=== PATIENT | female | born 2000 | race Caucasian/White ===

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

== ENCOUNTER → 2020-04-21 14:45 | Outpatient (CLI) | payer BC, SELFPAY ==
[2020-04-21 16:09] LABS: HCG,Quantitative 139 mIU/ml (0-5.42)
== END ==
PROVIDERS: Visit Provider Nurse Practitioner Obstetrics & Gynecology
DX: Z34.90 Encounter for supervision of normal pregnancy, unspecified, unspecified trimester (principal)
CPT/HCPCS: 36415; 84702

== ENCOUNTER → 2020-04-25 11:44 | Outpatient (CLI) | payer BC, SELFPAY ==
[2020-04-25 14:45] LABS: HCG,Quantitative 788 mIU/ml (0-5.42)
== END ==
PROVIDERS: Visit Provider Nurse Practitioner Obstetrics & Gynecology
DX: Z34.90 Encounter for supervision of normal pregnancy, unspecified, unspecified trimester (principal)
CPT/HCPCS: 36415; 84702

== ENCOUNTER → 2020-05-16 12:50 | Outpatient (CLI) | payer BC, SELFPAY ==
[2020-05-19 23:37] LABS: Neisseria gonorrhoeae, NAA Negative (Negative)
== END ==
PROVIDERS: Visit Provider Nurse Practitioner Obstetrics & Gynecology
DX: Z34.90 Encounter for supervision of normal pregnancy, unspecified, unspecified trimester (principal)
CPT/HCPCS: 87491; 87591

== ENCOUNTER → 2020-05-21 10:58 | Outpatient (CLI) | payer BC, SELFPAY ==
--- NOTE | 2020-05-21 11:01 | US_ITS ---
PROCEDURE: US OB <= 14 WEEKS FETUS CLINICAL INDICATION: for dates COMPARISON: US US OB /MATERNAL DETAIL from 06/06/2019 FINDINGS: An intrauterine gestational sac is present with a pole with a crown-rump length of 1.8cm correlating to gestational age of 8weeks 3days. heart tones are present with an FHR of 170bpm. Yolk sac is noted. IMPRESSION: Live IUP at 8 weeks 3 days. Estimated due date by Ultrasound is 12/28/2020 Dictated by: Arjun Ewing MD 05/21/2020 15:45 Arjun Ewing MD in [place] 05/21/2020 15:45
== END ==
PROVIDERS: PCP Nurse Practitioner Family; Visit Provider Nurse Practitioner Obstetrics & Gynecology
DX: Z34.90 Encounter for supervision of normal pregnancy, unspecified, unspecified trimester (principal)
CPT/HCPCS: 76801

== ENCOUNTER → 2020-08-14 12:50 | Outpatient (CLI) | payer BC, SELFPAY ==
--- NOTE | 2020-08-14 12:50 | US_ITS ---
PROCEDURE: US OB /MATERNAL DETAIL CLINICAL INDICATION: 20 weeks gestation of Anatomy scan COMPARISON: US US OB <= 14 WEEKS FETUS from 05/21/2020 FINDINGS: Single viable intrauterine gestation. Breech position. Placenta: Posterior lateralplacenta grade 1. There is average amount fluid. The cervix appears satisfactory. Closed and measuring 4.8 centimeters in length. Complete survey performed and was unremarkable on the submitted images as in PACS. No discrete anomalies identified on survey imaging by technologist. Active fetus. Three-vessel cord with satisfactory umbilical cord insertion. 4- chamber heart noted. Survey of brain & ventricles Unremarkable. Face and neck survey unremarkable. Diaphragm and chest views unremarkable. Abdomen: 5 days stomach noted and satisfactory. Spine: Survey of the spine satisfactory with no anomalies identified nor imaged. Both arms and legs noted. Amniotic Fluid: Adequate. Maternal adnexa: No significant findings. Measurements: Average ultrasound age 20weeks 2days. Gestational Age 20weeks 2days Estimated due date by ultrasound age 0712/30/2020. Estimated weight 359g BPD = 20weeks OFD = 20weeks 5days HC = 19weeks 5days AC = 20weeks 5days FL = 20weeks 4days Growth Percentile= 28Percent% Heart Rate = 138bpm Cerebellum = 20weeks 2days Humerus = 20weeks 5days HC/AC is 1.1 CI is 0.76 FL/BPD is 0.73 FL/AC is 0.22 IMPRESSION: Healthy fetus in breech position with approximate ultrasound age consistent with gestational age by LMP Dictated by: Nusrat León MD 08/14/2020 17:50 Nusrat León MD in [place] 08/14/2020 17:50
== END ==
PROVIDERS: PCP Nurse Practitioner Family; Visit Provider Nurse Practitioner Obstetrics & Gynecology
DX: Z34.90 Encounter for supervision of normal pregnancy, unspecified, unspecified trimester (principal); Z3A.20 20 weeks gestation of pregnancy
CPT/HCPCS: 76811

== ENCOUNTER → 2020-10-01 08:38 | Outpatient (CLI) | payer BC, SELFPAY ==
[2020-10-01 09:06] LABS: Basophils % 0.4 % (0.1-2.0); Eosinophils # 0.2 K/mm3 (0.0-0.4); Hematocrit 39.2 % (37.0-47.0); Hemoglobin 12.9 g/dL (12.2-16.2); Lymphocytes # 2.8 K/mm3 (0.7-4.5); Lymphocytes % 25.6 % (10-50); Mean Corpuscular HGB Conc 32.8 g/dL (31.8-35.4); Mean Corpuscular Hemoglobin 30.6 pg (27.0-31.2); Mean Corpuscular Volume 93.1 fl (81-99); Mean Platelet Volume 9.4 fl (7.4-10.4); Monocytes # 0.6 K/mm3 (0.1-1.0); Monocytes % 5.7 % (1.7-9.3); Neutrophils # 7.2 K/mm3 (1.8-7.8); Neutrophils % 66.3 % (37.0-80.0); Platelet Count 237 K/mm3 (142-424); Red Blood Count 4.21 M/mm3 (4.20-5.40); Red Cell Distribution Width 13.7 % (11.5-17.5); White Blood Count 10.8 K/mm3 (4.5-13.0)
[2020-10-01 09:16] LABS: Glucose,Fasting 82 mg/dl (74-100)
[2020-10-01 10:59] LABS: Glucose 1 Hour 106 mg/dL (74-100)
[2020-10-02 14:03] LABS: HIV Screen 4th Generation wRfx Non Reactive (Non Reactive); Rubella Antibodies, IgG 2.02 index (Immune >0.99)
[2020-10-02 14:04] LABS: Hepatitis B Surface Antigen Negative (Negative); Hepatitis C Antibody <0.1 s/co ratio (0.0-0.9); Rapid Plasma Reagin Ab Titer Non Reactive (NonRea<1:1)
[2020-10-03 23:26] LABS: AFP Value 187.8 ng/mL (.); DIA MoM See interpretation. (.); DIA Value 213.46 pg/mL (.); DSR (Second Trimester) 1 IN See interpretation. (.); Gest. Age on Collection Date 27.7 WEEKS (.); Maternal Age At EDD 20.8 yr (.); OSBR Risk 1 IN See interpretation. (.); Results Report (.); T18 (By Age) See interpretation. (.); hCG MoM See interpretation. (.); hCG Value 7996 mIU/mL (.); uE3 MoM See interpretation. (.)
[2020-10-04 09:14] LABS: Gestat. Age Based On EDD (.)
== END ==
PROVIDERS: Visit Provider Nurse Practitioner Obstetrics & Gynecology
DX: Z34.90 Encounter for supervision of normal pregnancy, unspecified, unspecified trimester (principal)
CPT/HCPCS: 82106; 82951; 85025; 86592; 86703; 86762; 86850; 87340; 87380; G0432

== ENCOUNTER → 2020-11-25 13:05 | Outpatient (CLI) | payer BC, OTHER, SELFPAY ==
--- NOTE | 2020-11-25 13:12 | US_ITS ---
PROCEDURE: US OB FOLLOW UP CLINICAL INDICATION: sga COMPARISON: US US OB /MATERNAL DETAIL from 08/14/2020 FINDINGS: There is a single live fetus present which is in cephalic presentation. heart body motion noted. Cervix appears closed measuring 3 cm. The placenta is posterior and high in implantation and is grade 2. KIMBERLYN is normal at 13 cm. Biophysical profile is 8. Measurements: Average ultrasound age 34weeks 3days. Gestational Age 34weeks 3days Estimated due date by ultrasound age 0701/03/2021. Estimated weight 2,461g BPD = 33weeks 4days OFD = 35weeks 1day HC = 34weeks AC = 34weeks 3days FL = 35weeks 5days Growth Percentile= 28% Heart Rate = 142bpm Cerebellum = Humerus = HC/AC is 1.01 CI is 0.76 FL/BPD is 0.84 FL/AC is 0.23 IMPRESSION: Live IUP which is in cephalic presentation. Average ultrasound age is 34 weeks 3 days. Estimated weight is 2461 g which is 28th percentile KIMBERLYN normal at 13 cm Biophysical profile 8 Dictated by: Arjun Ewing MD 11/25/2020 18:01 Arjun Ewing MD in [place] 11/25/2020 18:01
== END ==
PROVIDERS: PCP Nurse Practitioner Family; Visit Provider Nurse Practitioner Obstetrics & Gynecology
DX: O36.5990 Maternal care for other known or suspected poor fetal growth, unspecified trimester, not applicable or unspecified (principal)
CPT/HCPCS: 76816; 76819

== ENCOUNTER → 2020-11-27 15:34 | Outpatient (CLI) | payer BC, SELFPAY | PROVIDERS: Visit Provider Nurse Practitioner Obstetrics & Gynecology | DX: Z34.90 Encounter for supervision of normal pregnancy, unspecified, unspecified trimester (principal) | CPT/HCPCS: 86403 ==

== ENCOUNTER → 2020-12-20 11:39 | Outpatient (CLI) | payer BC, SELFPAY ==
[2020-12-20 12:04] LABS: Basophils % 0.3 % (0.1-2.0); Eosinophils # 0.2 K/mm3 (0.0-0.4); Eosinophils % 1.9 % (0.1-12.0); Hematocrit 39.5 % (37.0-47.0); Hemoglobin 13.6 g/dL (12.2-16.2); Lymphocytes # 1.8 K/mm3 (0.7-4.5); Lymphocytes % 17.5 % (10-50); Mean Corpuscular HGB Conc 34.5 g/dL (31.8-35.4); Mean Corpuscular Hemoglobin 31.3 pg (27.0-31.2); Mean Corpuscular Volume 90.5 fl (81-99); Monocytes # 0.4 K/mm3 (0.1-1.0); Monocytes % 3.9 % (1.7-9.3); Neutrophils # 8.1 K/mm3 (1.8-7.8); Neutrophils % 76.4 % (37.0-80.0); Platelet Count 196 K/mm3 (142-424); Red Blood Count 4.37 M/mm3 (4.20-5.40); Red Cell Distribution Width 13.6 % (11.5-17.5); White Blood Count 10.5 K/mm3 (4.5-13.0)
[2020-12-20 12:22] LABS: Anion Gap 10.7 mEq/L (5-15); Blood Urea Nitrogen 7 mg/dl (7-17); Calcium 8.9 mg/dl (8.4-10.2); Carbon Dioxide 23 mmol/L (22.0-30.0); Chloride 106 mmol/L (98-107); Estimated Glomerular Filt Rate 157 ml/min (>60); GFR (African American) 190 ML/MIN (>60); Glucose 89 mg/dl (74-100); Potassium 4.7 mmoL/L (3.5-5.1); Sodium 135 mmol/L (136-145)
== END ==
PROVIDERS: Visit Provider Nurse Practitioner Obstetrics & Gynecology
DX: Z01.818 Encounter for other preprocedural examination (principal); Z11.52 Encounter for screening for COVID-19; Z3A.38 38 weeks gestation of pregnancy
CPT/HCPCS: 36415; 80048; 85025; U0003

== ENCOUNTER 2020-12-22 05:02 | Inpatient (IN) | payer BC, OTHER, SELFPAY ==
--- NOTE | 2020-12-15 14:04 | SUR.PREOP ---
Instructed patient to come in on TueDecember 20 for COVID swab.
[2020-12-22] VITALS (8 sets, daily range): BP systolic 117–173; BP diastolic 61–89; PULSE 81–104; RESP 14–20; TEMP 36.3–36.8; O2SAT 97–99; BMI 31.2; BMI 31.3
[2020-12-22 08:01] LABS: Microscopic, Urine URINE MICROSCOPIC (MICROSCOPIC)
[2020-12-22 08:01] LABS: Cord Blood PH 7.42 (7.35-7.45)
[2020-12-22 08:05] LABS: Appearance,Urine SL CLOUDY (Clear); Bilirubin,Urine Negative (Negative); Blood, Urine Negative (Negative); Color,Urine YELLOW (Yellow); Glucose,Urine (UA) Negative (Negative); Ketones,Urine Negative (Negative); Leukocyte Esterase,Urine 2+ (Negative); Nitrate,Urine Negative (Negative); PH,Urine 6.5 (5.0-8.5); Protein,Urine Negative (Negative); Urobilinogen,Urine 0.2 EU/dl (0.2)
[2020-12-22 08:16] LABS: Amphetamine/Metha Screen,Urine Negative ng/ml (<1000); Bacteria,Urine 1+ /lpf; Benzodiazepines Screen,Urine Negative ng/ml (<200); Squamous Epithelial Cell,Urine Occasional #/hpf (0-5)
[2020-12-22 08:17] LABS: Barbiturates Screen,Urine Negative ng/ml (<200); Cannabinoid Screen,Urine Negative ng/ml (<50)
[2020-12-22 08:18] LABS: Cocaine Screen,Urine Negative ng/ml (<300)
[2020-12-22 08:19] LABS: Methadone Screen,Urine Negative ng/ml (<300); Opiate Screen,Urine Negative ng/ml (<300)
[2020-12-22 08:20] LABS: Phencyclidine Screen,Urine Negative ng/ml (<25)
--- NOTE | 2020-12-22 08:40 | HMH.OPNOTE ---
Date of procedure: 12/22/20 Pre-op Diagnosis:: Term , previous section Post-op Diagnosis:: Term , previous section, uterine atony Procedure performed:: Repeat lower segment transverse section, B. Wills suture Surgeon:: Wilbert Armas MD [place] Rope Maker(s):: Alissa Roper SERVICE CONTROL OPERATOR:: Luca Teixeira Anesthesia: spinal Estimated blood loss (mL): 800 Clinical Note:: She is a 20-year-old 2 para 1 at 39 1 weeks gestational age. She had only 14 months between her last baby. She had previous section and as result of that was offered repeat lower segment transverse section at term. Operative findings:: She delivered a liveborn female child at 7:54 AM on the morning of December 22, 2020. The baby had Apgars of 8 at 1 minute and 9 at 5 minutes. pH was 7.42. She had a boggy uterus after we had finished closing up the uterine incision. As result of that I elected to perform a B. Wills suture. Operative note:: She was taken to the operating room where spinal anesthesia was found be adequate. She was prepped and draped in normal sterile fashion in the supine position with a leftward tilt. A Almaguer catheter was in the bladder. A Pfannenstiel skin incision was made with knife then carried through to the underlying layer of fascia with cautery. The fascia was opened in the midline with cautery and extended laterally using Rogers scissors. Noble clamps were applied to the superior aspect of the fascial incision which was tented up and the underlying rectus muscles dissected off using cautery. The Beto clamps were then applied to the inferior aspect of the fascial incision which in a similar fashion was tented up and the underlying rectus muscles dissected off using cautery. The rectus muscles were then in the midline, the peritoneum identified, and entered sharply with Metzenbaum scissors. This incision was then extended superiorly and inferiorly with cautery. We had good visualization of the bladder inferiorly. The bladder peritoneum was then opened in the midline and extended laterally using Metzenbaum scissors. A bladder flap was created digitally. Transverse incision was made through the uterine muscle to the amnion. This incision was then extended laterally using fingers traction. The amnion was entered sharply with knife. There was clear amniotic fluid. The infant's head was then delivered atraumatically. A loose nuchal cord was then reduced. This was followed by the anterior shoulder and the rest of the infant's body atraumatically. The oropharynx and nasopharynx were bulb suctioned. The was then handed off to Dr. Montero who assigned Apgars of 8 at 1 minute and 9 at 5 minutes. We then obtained cord blood as well as cord pH. The pH was 7.42. Using gentle traction on the cord and countertraction on the fundus I was able to easily deliver the placenta intact. It had a normal three-vessel cord. The uterus was then cleared of clots and debris . The uterus was then exteriorized from the abdominal cavity. The uterine incision was then closed using running 0 Vicryl suture in a locked fashion. A second layer of the same suture was used to imbricate the first layer. The bladder peritoneum was then closed using running 2-0 Vicryl suture in a locked fashion. The gutters and cul-de-sac were then cleared of clots and debris . Once again hemostasis was assured. The uterus was found to be quite boggy so I placed a B. Wills suture using #1 Vicryl. I took a bite anteriorly and then went over the back of the uterus. I took 2 bites posteriorly and then came back over the top of the uterus anteriorly. I took another bite here. The suture was then cinched down. The uterus was then returned to the abdominal cavity. I then placed a large piece of Interceed along the uterine incision. The peritoneum was grasped with Beverly clamps and closed using running 2-0 Vicryl suture. The rectus muscles w
--- NOTE | 2020-12-22 08:48 | HMH.OBAPHP ---
OB - H&P: HPI Antepartum - History of Present Illness Chief complaint: Term , previous section History of present illness: She is a 20-year-old 2 para 1 at 39 and 1 weeks gestational age. She has had a previous section 14 months ago. As result of that she was offered repeat lower segment transverse section at term. - History of Present Criteria for establishing EDC:: LMP confirmed by 1st trimester US care: good care Ultrasounds: normal 1st trimester US, normal mid trimester US Obstetrical complications: none Medical complications: none - Labs Blood type: O (+) positive Rubella: immune RPR/VDRL: nonreactive GBS status: negative HBsAG: negative [facility] History I have reviewed the patient's past medical history: Yes Medical History: Reports:: Anxiety, Asthma, Diabetes Mellitus Type 2 Denies:: Seizures *Have you ever received a pneumonia vaccine?: No *Have you received a flu vaccine this season?: No Laterality Cases: Bilateral: Tonsillectomy Other Surgeries: Yes: No Previous Surgery, , Hernia Repair, Other Amputation: No Fractures: No - *Social History Smoking Status: Never smoker Alcohol Intake: never Alcohol Intake Frequency:: other Substance Use Type: denies use *Occupational Status:: employed Housing: house Household Members: family *Travel in the last 8 weeks: None - Psychiatric History Pschychiatric History:: Reports:: Anxiety Family Hx:: Cancer, Diabetes, Heart Attack, Hypertension, Hyperlipidemia, Stroke, Asthma Para: 1 Review of Systems - Review of Systems Review of systems:: pertinent systems reviewed and negative unless documented below Meds Home Medications Medication Instructions Recorded Confirmed Type vitamins no.121-iron 28 1 tab PO DAILY tab 03/13/19 12/22/20 History mg-folic acid 800 mcg tablet RX: Ferrous Gluconate [Ferrous 324 mg PO DAILY 12/22/20 12/22/20 History Gluconate 324mg Tab] Allergies Allergy/AdvReac Type Severity Reaction Status Date / Time sulfamethoxazole AdvReac Mild Hives Verified 12/19/20 11:15 [From Bactrim] trimethoprim [From Bactrim] AdvReac Mild Hives Verified 12/19/20 11:15 OB - H&P: Exam - Physical Exam Vital signs: Temp Pulse Resp BP Pulse Ox 98.1 F 81 17 120/61 99 12/22/20 06:37 12/22/20 06:37 12/22/20 06:37 12/22/20 06:37 12/22/20 06:37 - Constitutional no acute distress - Routine HEENT Exam Head: Present: normocephalic Eye: Present: EOMI, PERRL ENT: Present: mucous membranes moist - Routine Neck Exam Present: supple, full ROM - Routine Respiratory Exam Absent: accessory muscle use (good air entry bilaterally), respiratory distress, wheezes, crackles - Routine Cardiovascular Exam Present: RRR. Absent: murmur - Routine Abdominal Exam Present: soft, normoactive bowel sounds. Absent: tenderness, distended, guarding - Routine Rectal Exam Patient deferred: visual exam, digital exam - Routine Exam Patient deferred: external exam, groin exam, perineal exam - Routine Extremities Exam Present: full ROM. Absent: cyanosis, edema - Routine Skin Exam Present: intact. Absent: cyanosis - Routine Neurological Exam Present: alert, oriented X3 - Routine Psychiatric Exam Present: normal affect OB - Results - Labs Labs: Urine 12/22/20 Range/Units 05:20 Urine Color Yellow (Yellow) Urine Appearance Sl cloudy (Clear) Urine pH 6.5 (5.0-8.5) Ur Specific [place] 1.020 (1.005-1.030) Urine Protein Negative (Negative) Urine Glucose (UA) Negative (Negative) OB - A/P Antepartum (1) Previous section complicating Status: Acute (2) Delivery by section of full-term infant Status: Acute (3) Uterine atony, , without hemorrhage Status: Acute - Additional Plan Planning to breastfeed?: No Plan: other Additional Information::
--- NOTE | 2020-12-22 08:50 | SUR.PHASEI ---
0848-notified Dr. Armas of [facility] for operating room, started protocol at this time, will continue to monitor
--- NOTE | 2020-12-22 10:19 | P.PN_ITS ---
[facility] Anesthesia Checklist - Patient Identification Patient Identification: Arm Band - Structural Data Admitted From: Inpatient Planned Operative Procedure/s: Repeat Consent for Planned Operative Procedure(s) Verified: Yes Verified Documents: Surgical Consent, History and Physical - NPO Status Verified Time NPO: 00:00 - Additional verifications Anesthesia Reactions: No - Airway Assessment C-Spine Mobility Assessed: Yes TMJ Mobility Assessed: Yes Dentition: Good Dentition - Anesthesia Plan Anesthesia Risk discussed: Yes Anesthesia Plan: Verified ASA Class: II Anesthesia Type: Spinal [facility] History I have reviewed the patient's past medical history: Yes Medical History: Reports:: Anxiety, Asthma, Diabetes Mellitus Type 2 Denies:: Seizures *Have you ever received a pneumonia vaccine?: No *Have you received a flu vaccine this season?: No Anesthesia experience/problems:: None Laterality Cases: Bilateral: Tonsillectomy Other Surgeries: Yes: No Previous Surgery, , Hernia Repair, Other Amputation: No Fractures: No - *Social History Smoking Status: Never smoker Alcohol Intake: never Alcohol Intake Frequency:: other Substance Use Type: denies use *Occupational Status:: employed Housing: house Household Members: family *Travel in the last 8 weeks: None - Psychiatric History Pschychiatric History:: Reports:: Anxiety Family Hx:: Cancer, Diabetes, Heart Attack, Hypertension, Hyperlipidemia, Stroke, Asthma Para: 1
--- NOTE | 2020-12-22 10:22 | P.PN_ITS ---
[facility] Anesthesia Record Part I Intake, IV Amount: 2,400 Estimated blood loss (mL): 800 Urine output (mL): 300 Blood Pressure: 173/66 SaO2: 97 Pulse Rate: 89 Respiratory Rate: 14 Temperature: 97.4 F Patient is:: Awake, Stable
--- NOTE | 2020-12-22 10:45 | PC.NURSE ---
0910- methergine 0.2mg admin subcut to right thigh, lab notified of order for two units of RBC's on hold, vital signs stable. Will continue to monitor. 0915- Detailed report called to Rommel Estevez RN. 0918- pt transported to OB room 278 in stable condition, left in care of Rommel Estevez RN
--- NOTE | 2020-12-22 10:56 | SUR.OPER ---
0754- viable female born at this time
--- NOTE | 2020-12-22 12:43 | HMH.ANESII ---
[facility] Anesthesia Record Part II Discharge Time: 09:15 Destination: Obstetric PACU nurse assessment reviewed?: Yes Patient Condition:: Good Anesthesia Complications:: None Swallowing reflex intact?: Yes Cyanosis?: No Blood Pressure: 135/81 Pulse Rate: 83 Temperature: 97.8 F Mental Status: Alert & Oriented Pain level:: 0 Nausea and/or vomitting:: None Intake, IV Amount: 0
--- NOTE | 2020-12-22 14:01 | HMH.PHAVTE ---
[facility] Pharmacy VTE Monitoring - Patient Demographics Admission date: 12/22/20 Report Date: 12/22/20 Time: 14:01 Allergies/Adverse Reactions: Patient Allergies sulfamethoxazole [From Bactrim] Adverse Reaction (Mild, Verified 12/19/20 11:15) Hives trimethoprim [From Bactrim] Adverse Reaction (Mild, Verified 12/19/20 11:15) Hives Height: 1.65 m Weight: 85.275 kg Patient Problems: Current Active Problems Previous section complicating (Acute) Delivery by section of full-term (Acute) Uterine atony, , without hemorrhage (Acute) - Prophylaxis VTE Prophylaxis Ordered?: Yes Types of VTE Prophylaxis: IPCS Thigh High Location of Applied Device: Bilateral Lower Extremeties
[2020-12-22 14:32] LABS: Microscopic,Cath URINE MICROSCOPIC (MICROSCOPIC)
[2020-12-22 14:49] LABS: Appearance,Urine/Cath CLEAR (Clear); Bilirubin,Cath Negative (Negative); Blood, Urine/Cath Negative (Negative); Color,Urine/Cath YELLOW (Yellow); Glucose,Urine/Cath (UA) Negative (Negative); Ketones,Urine/Cath Negative (Negative); Leukocyte Esterase,Cath Negative (Negative); Nitrate,Cath Negative (Negative); PH,Urine/Cath 6.5 (5.0-8.5); Protein,Urine/Cath Negative (Negative); Urobilinogen,Cath 0.2 EU/dl (0.2)
[2020-12-22 15:13] LABS: WBC,Urine/Cath Occasional #/hpf (0-3)
[2020-12-22 15:14] LABS: Bacteria,Urine/Cath TRACE /lpf
[2020-12-22 16:26] LABS: Hematocrit 33.5 % (37.0-47.0); Hemoglobin 11.8 g/dL (12.2-16.2)
[2020-12-23 08:00] VITALS: BP 108/58; PULSE 79; RESP 18; TEMP 36.9; O2SAT 97
[2020-12-23 08:54] LABS: Hematocrit 29.3 % (37.0-47.0)
--- NOTE | 2020-12-23 10:29 | P.PN_ITS ---
Internal Medicine - PN: Subj *Date: 12/23/20 *Time: 10:29 Interval history: She is 24 hours post section. She is doing very well. She denies any pain. She had a tap block yesterday. Her lochia is normal. She is bottlefeeding. Exam Vital signs and Labs for Last 24 Hours: Temp Pulse Resp BP Pulse Ox 98.4 F 79 18 108/58 L 97 12/23/20 08:00 12/23/20 08:00 12/23/20 08:00 12/23/20 08:00 12/23/20 08:00 Laboratory Results - last 24 hr 12/22/20 07:45: Urine Color Yellow, Urine Appearance Clear, Urine pH 6.5, Ur Specific [place] 1.020, Urine Protein Negative, Urine Glucose (UA) Negative, Ur ine Ketones Negative, Urine Blood Negative, Urine Nitrate Negative, Urine Bilirubin Negative, Urine Urobilinogen 0.2, Ur Leukocyte Esterase Negative, Urine RBC None, Urine WBC Occasional, Ur Squamous Epith Cells None, Urine Bacteria Trace 12/22/20 09:50: Blood Type O Positive, Antibody Screen Negative, Crossmatch (AHG) See Detail 12/22/20 16:10: Hgb 11.8 L, Hct 33.5 L 12/23/20 08:38: Hct 29.3 L I & O for Last 24 hours: Intake & Output 12/20/20 12/21/20 12/22/20 12/23/20 11:59 11:59 11:59 11:59 Intake Total 2400 / 2400 0 / 0 Output Total 1200 / 1200 Balance 2400 / 2400 -1200 / -1200 Weight 188 lb 187 lb 15.987 oz Microbiology Reports for the Last 24 Hours: Microbiology 12/22/20 05:20 Urine,Clean Catch Urine Culture - Preliminary NO GROWTH AFTER 24 HOURS - Constitutional no acute distress - *Routine HEENT Exam Head: Present: normocephalic Eye: Present: EOMI, PERRL ENT: Present: mucous membranes moist Assessment and Plan (1) Previous section complicating Status: Acute Category: Surgical Code(s): O34.219 - Maternal care for unspecified type scar from previous delivery (2) Delivery by section of full-term Status: Acute Category: Medical Code(s): O82 - Encounter for delivery without indication (3) Uterine atony, , without hemorrhage Status: Acute Category: Medical Code(s): O75.89 - Other specified complications of labor and delivery - Assessment and plan all Dx Assessment and Plan for all problems:: She continues to do very well. She is eating and drinking and ambulating. Her pain is well controlled with a tap block. We will plan to send her home tomorrow.
[2020-12-23 11:27] LABS: Hemoglobin 10.2 g/dL (12.2-16.2)
[2020-12-23 16:05] VITALS: BP 112/62; PULSE 98; RESP 18; TEMP 36.7; O2SAT 100
--- NOTE | 2020-12-24 08:58 | HMH.OBDCSM ---
General - General Admission date:: 12/22/20 Discharge date: 12/24/20 HPI - History of Present Illness History of present illness: She is a 20-year-old 2 para 1 at 39 1 weeks gestational age. She had a previous section and as result of that was offered repeat lower segment transverse section at term. Hospital Course Hospital Course: She had a repeat lower segment transverse section on December 22, 2020. She delivered a liveborn female child at 7:54 AM. The baby weighed 7 pounds 3 ounces and had Apgars of 8 at 1 minute and 9 at 5 minutes. She has done well and has remained afebrile throughout her hospitalization. She is eating and drinking and ambulating. She is bottle feeding. Her lochia is normal. She has O+ blood, she is rubella immune and was group B streptococcus negative. Her civil cad tech is Dr. Montero. She had a tap block at the time of her and she has used minimal narcotics throughout her hospitalization. Her pain is been well controlled with a tap block. She is now just taking [id number] analgesics. She will be discharged home this morning to follow-up with me in approximate 2 weeks time. She was given the usual instructions with respect to limiting her activity, driving and sexual activity. She will be given a prescription for Percocet 5/325 number 6 tablets. She will continue with her vitamins and iron. Her condition on discharge is stable and improved. Rhogam Administration: Not Indicated Objective Vital signs: Temp Pulse Resp BP Pulse Ox 98.0 F 98 H 18 112/62 100 12/23/20 16:05 12/23/20 16:05 12/23/20 16:05 12/23/20 16:05 12/23/20 16:05 no acute distress - *Routine Abdominal Exam Present: soft, normoactive bowel sounds. Absent: tenderness Results Labs on day of discharge: Labs from last 24 hours 12/23/20 08:38 Hgb 10.2 L D Hct 29.3 L DS: Diagnosis - Discharge Diagnosis (1) Previous section complicating Status: Acute (2) Delivery by section of full-term infant Status: Acute (3) Uterine atony, , without hemorrhage Status: Acute Discharge Plan - Patient Discharge Instructions ACTIVITY: No heavy lifting DIET: continue same diet Additional Instructions: No heavy lifting, no strenuous activity and nothing in the vagina for 6 weeks. Patient Instructions: Depression, Hemorrhage, DI for Pre-eclampsia, DI for Surgical Site Infection, DI for Postoperative Pain, [facility] Post Discharge Instructions, Preventing the Spread of Coronavirus Discharge Instructions - Follow up Plan Follow up with: Wilbert Armas MD [Staff Physician] - 01/05/21 10:30 am Disposition: Home, Self-Care Condition at discharge:: Stable Home Medications: Home Medications Medication Instructions Recorded Confirmed Type vitamins no.121-iron 28 1 tab PO DAILY tab 03/13/19 12/22/20 History mg-folic acid 800 mcg tablet Ferrous Gluconate [Ferrous 324 mg PO DAILY 12/22/20 12/22/20 History Gluconate 324mg Tab] Oxycodone HCl/Acetaminophen 1 tab PO Q4-6H PRN #6 tab 12/24/20 Rx [Percocet 5/325mg tablet] Prescriptions/Medication Reconciliation: New Oxycodone HCl/Acetaminophen [Percocet 5/325mg tablet] 1 tab PO Q4-6H PRN #6 tab PRN Reason: Severe Pain Continued vitamins no.121-iron 28 mg-folic acid 800 mcg tablet 1 tab PO DAILY tab Ferrous Gluconate [Ferrous Gluconate 324mg Tab] 324 mg PO DAILY - Problem Reconciliation Problems Reviewed?: Yes
== END 2020-12-24 10:15 | disposition home or self-care (01) | DRG 788 ==
PROVIDERS: Admitting Provider Nurse Practitioner Obstetrics & Gynecology; PCP Nurse Practitioner Family; Visit Provider Nurse Practitioner Obstetrics & Gynecology
PROC: 10D00Z1 Extraction of Products of Conception, Low, Open Approach (ICD-10-PCS; CPT 59514; principal; 2020-12-22 07:30)
DX: O34.211 Maternal care for low transverse scar from previous cesarean delivery (principal); N85.8 Other specified noninflammatory disorders of uterus; Z3A.39 39 weeks gestation of pregnancy; Z37.0 Single live birth; O75.89 Other specified complications of labor and delivery
CPT/HCPCS: 59514; 36415; 59025; 80305; 81001; 82800; 85014; 85018; 86850; 87086

== ENCOUNTER → 2021-03-12 08:00 | Outpatient (CLI) | payer BC, SELFPAY | PROVIDERS: Visit Provider Internal Medicine Adolescent Medicine | DX: R30.0 Dysuria (principal) | CPT/HCPCS: 87086; 87088; 87186 ==

== ENCOUNTER → 2021-12-14 09:09 | Outpatient (CLI) | payer BC, OTHER, SELFPAY ==
--- NOTE | 2021-12-14 09:16 | US_ITS ---
FINAL REPORT CLINICAL HISTORY: UNSPECIFIED ABD PAIN FINDINGS: Sonographic images of the right upper quadrant were obtained. The pancreas is partially obscured.The liver has an unremarkable appearance. There are multiple gallstones filling the gallbladder. The gallbladder wall is borderline thickened at 3 mm. The common duct measures 7 mm of uncertain significance. Limited images of the right kidney are unremarkable. IMPRESSION: Cholelithiasis with borderline gallbladder wall thickening. Dilation of the common duct measuring 7 mm of uncertain significance, consider MRCP for further evaluation. Reviewed, Interpreted and Dictated by Issa Hale III, MD Transcribed by Gisela Montano Authenticated and [facility]
== END ==
PROVIDERS: PCP Nurse Practitioner Family; Visit Provider Nurse Practitioner Family
DX: R10.9 Unspecified abdominal pain (principal)
CPT/HCPCS: 76705

== ENCOUNTER → 2022-05-31 09:08 | Outpatient (CLI) | payer BC, OTHER, SELFPAY | PROVIDERS: PCP Nurse Practitioner Family; Visit Provider Nurse Practitioner Family | DX: R00.2 Palpitations (principal) | CPT/HCPCS: 93306 ==

== ENCOUNTER 2022-07-30 22:25 | Emergency (ER) | payer BC, OTHER, SELFPAY ==
[2022-07-30 22:26] VITALS: BP 122/70; PULSE 118; RESP 16; TEMP 36.5; O2SAT 99; BMI 21.7
--- NOTE | 2022-07-30 22:45 | HMH.EDNVD ---
Discharge Plan Disposition Patient Disposition: Home, Self-Care Prescriptions Prescriptions: New ondansetron 4 mg tablet,disintegrating 4 mg PO Q8H 3 Days Qty: 9 0RF No Action ofloxacin 0.3 % drops 1 drp otic (ear) BID Referrals Follow up/Referrals: Preethi Avilez [Primary Care Provider] - See instructions Clinical Impressions Clinical Impression: Enteritis Instructions Patient Instructions: DI for Diarrhea and Traveler's Diarrhea -- Adult, DI for Nausea -- Adult Discharge ED Provider: Avel (ED)Nishant Nausea/Vomiting/Diarrhea HPI General Chief complaint: Nausea/Vomiting/Diarrhea Stated complaint: chills,V&D Time Seen by Provider: 07/30/22 23:00 Mode of Arrival: Ambulatory Source of Information: Patient, Significant Other and Medical Record Limitations: No Limitations Description of Symptoms (Recalled from ER Triage Doc. by RN): 22 F presents with 5 hours of n/v/d, abdominal cramping, and generalized fatigue. She denies any sick exposures to her knowledge. NAD History of Present Illness HPI Narrative: pt with acute onset of n/v and watery diarrhea with crampy pain- MD complaint: nausea, vomiting and diarrhea Onset (ago): hour(s) Description of Vomiting: watery Associated Abdominal Pain: Yes Location of pain: diffuse Severity: moderate Quality: cramping Consistency: intermittent Associated symptoms: denies other symptoms Related Data Home Medications Medication Instructions Recorded Confirmed ofloxacin 0.3 % ear drops 1 drp otic (ear) BID Ear Infection 07/30/22 07/30/22 Previous Rx's Medication Instructions Recorded ondansetron 4 mg disintegrating 4 mg PO Q8H 3 days #9 tabs 07/31/22 tablet Allergies Allergy/AdvReac Type Severity Reaction Status Date / Time sulfamethoxazole AdvReac Mild Hives Verified 04/22/22 09:00 [From Bactrim] trimethoprim [From Bactrim] AdvReac Mild Hives Verified 04/22/22 09:00 [facility] Disclaimer: The information contained in this section may have been updated after the patient was seen, as this information can be updated by other users. 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 (Updated 04/22/22 @ 09:18 by ARAVIND Sutherland) Hx laparoscopic cholecystectomy Social History Smoking Status: Current some day smoker alcohol intake: never substance use type: denies use current occupational status: employed Travel in the last 8 weeks: None household members: family housing: house ROS Obtained: Yes All systems reviewed & no additional complaints except as documented Physical Exam General General appearance: alert Head Head exam: normocephalic Eye Eye exam: Present PERRL and EOMI; Absent scleral icterus ENT ENT exam: Present mucous membranes moist Neck Neck exam: Present trachea midline Respiratory Respiratory exam: Present normal lung sounds bilaterally; Absent respiratory distress Cardiovascular Cardiovascular exam: Present tachycardia Abdominal Exam Abdominal exam: Present soft and tenderness; Absent guarding, rebound or rigidity Abdominal tenderness: Present diffuse and moderate Extremities Exam Extremities exam: Present full ROM Neurological Exam Neurological exam: Present alert, oriented X3 and CN II-XII intact; Absent motor sensory deficit Psychiatric Psychiatric exam: Present normal affect Skin Skin exam: Absent rash Medical Decision Making Medical Records Medical records reviewed: Yes I reviewed the patient's medical records. Tc Inquiry Pt receiving controlled substance: No Vital Signs: 07/30/22 22:26 07/30/22 23:00 Temperature 97.7 F Temperature Source Oral Pulse Rate 88 Pulse Rate [Left] 118 H Respiratory Rate 16 Blood Pressure 123/63 Blood Pressure [Right Arm] 122/70 Blood Pressure Mean [Right Arm] 87 Blood Pressure Source [Right Arm] Automatic Cuff Blood Pressure Position [Right Arm] Sitting 02 Sat by Pulse Oximetry 99 100 Oxygen Delivery
[2022-07-30 22:57] LABS: Chloride 106 mmol/L (98-107)
[2022-07-30 22:58] LABS: Basophils # 0.1 K/mm3 (0-0.2); Basophils % 0.5 % (0.1-2.0); Eosinophils # 0.4 K/mm3 (0.0-0.4); Eosinophils % 1.3 % (0.1-12.0); Hematocrit 52.2 % (37.0-47.0); Hemoglobin 17.1 g/dL (12.2-16.2); Lymphocytes # 0.7 K/mm3 (0.7-4.5); Lymphocytes % 2.3 % (10-50); Mean Corpuscular HGB Conc 32.6 g/dL (31.8-35.4); Mean Corpuscular Hemoglobin 30.2 pg (27.0-31.2); Mean Corpuscular Volume 92.6 fl (81-99); Mean Platelet Volume 8.9 fl (7.4-10.4); Monocytes # 0.9 K/mm3 (0.1-1.0); Monocytes % 3.2 % (1.7-9.3); Neutrophils # 26.2 K/mm3 (1.8-7.8); Neutrophils % 92.6 % (37.0-80.0); Platelet Count 363 K/mm3 (142-424); Potassium 4.2 mmoL/L (3.5-5.1); Red Blood Count 5.64 M/mm3 (4.20-5.40); Red Cell Distribution Width 12.8 % (11.5-17.5); Sodium 140 mmol/L (136-145); White Blood Count 28.3 K/mm3 (4.8-10.8)
[2022-07-30 23:00] VITALS: BP 123/63; PULSE 88; O2SAT 100
[2022-07-30 23:00] LABS: Alanine Aminotransferase 20 U/L (12-78); Alkaline Phosphatase 81 U/L (38-126); Anion Gap 14.2 mEq/L (5-15); Aspartate Amino Transferase 29 U/L (14-36); Bilirubin,Total 1.3 mg/dl (0.2-1.3); Blood Urea Nitrogen 16 mg/dl (7-17); Carbon Dioxide 24 mmol/L (22.0-30.0); Creatinine Clearance Estimated 142 mL/min (50-200); Estimated Glomerular Filt Rate 125 ml/min (>60); GFR (African American) 151 ML/MIN (>60); Lipase 92 U/L (23-300)
[2022-07-30 23:01] LABS: Albumin Level 5.1 g/dl (3.5-5.0); Albumin/Globulin Ratio 1.4 (1.1-1.8); Calcium 8.9 mg/dl (8.4-10.2); Globulin 3.7 g/dL (1.3-3.2); Glucose 116 mg/dl (74-100); MANUAL DIFFERENTIAL MANUAL DIFFERENTIAL (MANUAL DIFF); Total Protein,Serum 8.8 g/dl (6.3-8.2)
[2022-07-30 23:02] LABS: Lactic Acid 1.1 mmol/L (0.7-2.1)
[2022-07-30 23:04] LABS: HCG Qualitative, Serum Negative (Negative)
[2022-07-30 23:06] LABS: C-Reactive Protein 0.6 mg/L (0-4)
--- NOTE | 2022-07-30 23:10 | CT_ITS ---
PROCEDURE INFORMATION: Exam: CT Abdomen And Pelvis With Contrast Exam date and time: 07/30/2022 11:26 PM Age: 22 years old Clinical indication: Abdominal pain; Additional info: Nausea/vomiting, abdominal pain TECHNIQUE: Imaging protocol: Computed tomography of the abdomen and pelvis with contrast. Radiation optimization: All CT scans at this facility use at least one of these dose optimization techniques: automated exposure control; mA and/or kV adjustment per patient size (includes targeted exams where dose is matched to clinical indication); or iterative reconstruction. Contrast material: ISOVUE; Contrast volume: 75 ml; Contrast route: IV; Other protocol: This patient has received 0 known CTs and 0 known cardiac nuclear medicine studies in the 12 months prior to the current study. COMPARISON: ABDPELW CT ABD PELVIS W/ CONTRAST 03/29/2017 9:44 AM FINDINGS: Liver: Normal. No mass. Gallbladder and bile ducts: Gallbladder is surgically absent. Pancreas: Normal. No ductal dilation. Spleen: Normal. No splenomegaly. Adrenal glands: Normal. No mass. Kidneys and ureters: Normal. No hydronephrosis. Stomach and bowel: There is diffuse small bowel wall thickening and enhancement with fluid throughout small bowel and colon, compatible with enteritis and associated diarrheal illness. No evidence of bowel obstruction. Appendix: No evidence of appendicitis. Intraperitoneal space: Unremarkable. No free air. No significant fluid collection. Vasculature: Unremarkable. No abdominal aortic aneurysm. Lymph nodes: Unremarkable. No enlarged lymph nodes. Urinary bladder: Unremarkable as visualized. Reproductive: There has been interval development of a 4.8 cm left adnexal cyst in the pelvis. Pelvic organs are otherwise unremarkable. Bones/joints: Unremarkable. No acute fracture. Soft tissues: Unremarkable. IMPRESSION: 1. Findings suggesting diffuse enteritis. No evidence of bowel obstruction 2. Interval development of a 4.8 cm left adnexal cyst, presumably of left ovarian origin. Further characterization with nonurgent pelvic ultrasound recommended.
[2022-07-30 23:26] LABS: Eosinophils % 2 % (0-3); Lymphocytes % 6 % (10-50); Monocytes % 3 % (2-9); Neutrophils % 89 % (42-76); Platelet Estimate Normal; RBC Morphology Normal; Total Cells Counted 100
[2022-07-30 23:29] LABS: Erythrocyte Sedimentation Rate 1 mm/hr (0-20); Procalcitonin 0.107 ng/mL (0.0-2.0)
[2022-07-30 23:37] LABS: Microscopic, Urine URINE MICROSCOPIC (MICROSCOPIC)
[2022-07-31 00:08] LABS: Appearance,Urine Clear (Clear); Color,Urine Yellow (Yellow); Specific Gravity, Urine >= 1.030 (1.005-1.030)
[2022-07-31 00:09] LABS: Bilirubin,Urine Negative (Negative); Blood, Urine Negative (Negative); Glucose,Urine (UA) Negative (Negative); Ketones,Urine 2+ (Negative); Leukocyte Esterase,Urine Negative (Negative); Nitrate,Urine Negative (Negative); Protein,Urine Negative (Negative); Squamous Epithelial Cell,Urine Occasional #/hpf (0-5); Urobilinogen,Urine 0.2 EU/dl (0.2); WBC,Urine Occasional #/hpf (0-3)
[2022-07-31 00:10] LABS: Bacteria,Urine Trace /lpf; Mucus,Urine 3+ /lpf
[2022-07-31 00:56] VITALS: BP 123/63; PULSE 88; RESP 18; TEMP 36.7; O2SAT 100
[2022-08-01 22:46] LABS: Peripheral Smear Review Scanned Result
== END 2022-07-31 01:11 | disposition home or self-care (01) ==
PROVIDERS: Emergency Provider Emergency Medicine; PCP Nurse Practitioner Family
DX: K52.9 Noninfective gastroenteritis and colitis, unspecified (principal); F17.210 Nicotine dependence, cigarettes, uncomplicated; Z87.19 Personal history of other diseases of the digestive system
CPT/HCPCS: 74177; 80053; 81001; 83605; 83690; 84145; 84703; 85007; 85025; 85651; 86140; 96361; 96374; 96375; 99285; J2405; Q9967

== ENCOUNTER 2022-10-31 16:36 | Emergency (ER) | payer BC, OTHER, SELFPAY ==
[2022-10-31 17:45] LABS: Apearance,Urine Clear (Clear); Color,Urine Straw (Yellow)
[2022-10-31 17:46] LABS: Bilirubin,Urine Negative (Negative); Blood, Urine 2+ (Negative); Glucose,Urine (UA) Negative (Negative); Ketones,Urine Negative (Negative); Protein,Urine Negative (Negative); Specific Gravity, Urine < 1.005 (1.005-1.030); UTC Leukocyte Esterase,Urine 3+ (Negative); UTC Nitrate,Urine Negative (Negative); Urobilinogen,Urine 0.2 EU/dl (0.2)
--- NOTE | 2022-10-31 18:08 | EXP.UTC ---
Discharge Plan Disposition Patient Disposition: Home, Self-Care Condition: Good Prescriptions Prescriptions: New cephalexin [cephalexin] 500 mg tablet 500 mg PO BID 7 Days Qty: 14 0RF No Action ofloxacin 0.3 % drops 1 drp otic (ear) BID ondansetron 4 mg tablet,disintegrating 4 mg PO Q8H 3 Days Qty: 9 0RF Referrals Follow up/Referrals: Preethi Avilez [Primary Care Provider] - See instructions Activity Restrictions/Add. Instructions Additional Instructions/Restrictions: Increase fluids, water and not soda or tea. Can drink cranberry juice or cranberry extract. Wipe front to back Wear cotton underwear Empty bladder after intercourse Start antibiotics immediately and make sure you take the full course although you may start to see improvement over the next 48 hours. You can eat yogurt or take probiotics to decrease diarrhea or yeast infection caused by the antibiotic Be sure to follow-up anytime for new or worsening symptoms in 48 hours for wound urine culture results be sure to let you PCP no recent urine for culture so they can request records and ensure that you have appropriate antibiotic if you are not getting better or getting worse. If symptoms worsen or do not improve return or be seen in the ER. Follow-up with primary care this week. Clinical Impressions Clinical Impression: UTI (urinary tract infection) Instructions Patient Instructions: DI for Urinary Tract Infection (UTI) Discharge ED Provider: Francesco ([facility])Marco [facility] [place] HPI General Stated complaint: Possible UTI Mode of Arrival: Ambulatory Time Seen by Provider: 10/31/22 18:08 HEENT Symptoms (Recalled from RN notes): No Resp Symptoms (Recalled from RN notes): No Skin Symptoms (Recalled from RN notes): No GI/ Symptoms (Recalled from RN notes): No MS Symptoms (Recalled from RN notes): No Card Symptoms (Recalled from RN notes): No Other (Recalled from RN notes): No History of Present Illness Provider Complaint: 22 yr old female presents for burning, freq, urgency, and pelvic pressure that started today Related Data Home Medications Medication Instructions Recorded Confirmed ofloxacin 0.3 % ear drops 1 drp otic (ear) BID Ear Infection 07/30/22 07/30/22 Previous Rx's Medication Instructions Recorded ondansetron 4 mg disintegrating 4 mg PO Q8H 3 days #9 tabs 07/31/22 tablet cephalexin 500 mg tablet 500 mg PO BID 7 days #14 tabs 10/31/22 Allergies Allergy/AdvReac Type Severity Reaction Status Date / Time sulfamethoxazole AdvReac Mild Hives Verified 10/31/22 18:14 [From Bactrim] trimethoprim [From Bactrim] AdvReac Mild Hives Verified 10/31/22 18:14 PFSH [facility] Disclaimer: The information contained in this section may have been updated after the patient was seen, as this information can be updated by other users. 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) Smoking Status: Current some day smoker alcohol intake: never substance use type: denies use current occupational status: employed Travel in the last 8 weeks: None household members: family housing: house ROS Obtained: Yes All systems reviewed & no additional complaints except as documented Constitutional Constitutional: Reports system reviewed and no additional complaints, except as documented and Reports as per HPI Eyes Eyes: Reports system reviewed and no additional complaints, except as documented and Reports as per HPI ENT Ears, Nose, Mouth, and Throat: Reports system reviewed and no additional complaints, except as documented Cardiovascular Cardiovascular: Reports system reviewed and no additional complaints, except as documented Respiratory Respiratory: Reports system reviewed and no additional complaints, except as documented Gastrointestinal Gastrointestingal: Reports system reviewed and n
[2022-10-31 18:11] VITALS: BP 115/73; PULSE 88; RESP 18; TEMP 36.8; O2SAT 99; BMI 25.7
[2022-10-31 18:36] VITALS: BP 115/73; PULSE 88; RESP 18; TEMP 36.8
== END 2022-10-31 18:38 | disposition home or self-care (01) ==
PROVIDERS: Emergency Provider Nurse Practitioner Family; PCP Nurse Practitioner Family
DX: N39.0 Urinary tract infection, site not specified (principal); F17.210 Nicotine dependence, cigarettes, uncomplicated
CPT/HCPCS: 81003; 87086; 87088; 87186; 99204; 99212; 99214; G0463

== ENCOUNTER → 2022-12-01 06:55 | Outpatient (CLI) | payer BC, OTHER, SELFPAY ==
[2022-12-01 08:40] LABS: HCG,Quantitative 12 mIU/ml (0-5.42)
[2022-12-02 08:39] LABS: Progesterone 6.5 ng/mL (.)
== END ==
PROVIDERS: PCP Nurse Practitioner Family; Visit Provider Nurse Practitioner Obstetrics & Gynecology
DX: N92.6 Irregular menstruation, unspecified (principal); Z32.00 Encounter for pregnancy test, result unknown
CPT/HCPCS: 36415; 84144; 84702

== ENCOUNTER → 2022-12-03 07:03 | Outpatient (CLI) | payer BC, OTHER, SELFPAY ==
[2022-12-03 09:20] LABS: HCG,Quantitative 5 mIU/ml (0-5.42)
== END ==
PROVIDERS: PCP Nurse Practitioner Family; Visit Provider Nurse Practitioner Obstetrics & Gynecology
DX: N92.6 Irregular menstruation, unspecified (principal); Z32.00 Encounter for pregnancy test, result unknown
CPT/HCPCS: 36415; 84702

== ENCOUNTER → 2023-04-01 10:26 | Outpatient (CLI) | payer BC, OTHER, SELFPAY ==
[2023-04-01 11:22] LABS: HCG,Quantitative 520 mIU/ml (0-5.42)
[2023-04-03 11:50] LABS: Progesterone 11.1 ng/mL (.)
== END ==
PROVIDERS: PCP Nurse Practitioner Family; Visit Provider Nurse Practitioner Obstetrics & Gynecology
DX: N92.6 Irregular menstruation, unspecified (principal)
CPT/HCPCS: 36415; 84144; 84702

== ENCOUNTER 2023-04-04 17:37 | Emergency (ER) | payer BC, OTHER, SELFPAY ==
[2023-04-04 17:39] VITALS: BP 135/87; PULSE 101; RESP 16; TEMP 36.8; O2SAT 99; BMI 25.9
[2023-04-04 17:44] LABS: Microscopic, Urine URINE MICROSCOPIC (MICROSCOPIC)
[2023-04-04 18:00] VITALS: BP 153/80; PULSE 112; O2SAT 99
[2023-04-04 18:08] LABS: Appearance,Urine CLEAR (Clear); Bilirubin,Urine Negative (Negative); Blood, Urine Negative (Negative); Color,Urine YELLOW (Yellow); Glucose,Urine (UA) Negative (Negative); Ketones,Urine Negative (Negative); Leukocyte Esterase,Urine TRACE (Negative); Nitrate,Urine Negative (Negative); PH,Urine 6.5 (5.0-8.5); Protein,Urine Negative (Negative); Specific Gravity, Urine <= 1.005 (1.005-1.030); Urobilinogen,Urine 0.2 EU/dl (0.2)
--- NOTE | 2023-04-04 18:14 | HMH.EDGENADL ---
Discharge Plan Disposition Patient Disposition: Home, Self-Care Prescriptions Prescriptions: No Action ofloxacin 0.3 % drops 1 drp otic (ear) BID ondansetron 4 mg tablet,disintegrating 4 mg PO Q8H 3 Days Qty: 9 0RF cephalexin [cephalexin] 500 mg tablet 500 mg PO BID 7 Days Qty: 14 0RF Referrals Follow up/Referrals: Preethi Avilez [Primary Care Provider] - See instructions Activity Restrictions/Add. Instructions Additional Instructions/Restrictions: Call your family doctor to establish care for this visit to the emergency department and schedule follow-up within 48 hours to ensure improvement. If you have any worsening of your condition or any other concerning signs or symptoms, return to the emergency department or your primary care doctor for further evaluation. Follow-up with OB for formal obstetrics care Clinical Impressions Clinical Impression: Urinary frequency care Qualifiers: Trimester: first trimester Qualified Code(s): Z34.91 - Encounter for supervision of normal , unspecified, first trimester Instructions Patient Instructions: DI for Urinary Tract Infection (UTI), DI for Urinary Tract Infection in Children Discharge ED Provider: Frandy Fields General Adult HPI General Chief complaint: Urogenital-Female Stated complaint: frequent painful urination, 1 mo preg Time Seen by Provider: 04/04/23 17:41 Mode of Arrival: Family Vehicle Source of Information: Patient Limitations: No Limitations Description of Symptoms (Recalled from ER Triage Doc. by RN): Pt c/o urinary urgency & frequency suspects she has a UTI. She reports to be 4-5 wk , . LMP 02/28/23. Denies any abd pain or vaginal discharge. History of Present Illness HPI narrative: 23-year-old female G3, P2 with last menstrual period 03/01 presenting with frequency. Patient states that she has been having urinary frequency for about a week. Denies dysuria, hematuria, nausea or vomiting, fevers or chills, or any other concerns. 1 to make sure she did not be UTI. Allergic to Bactrim. Patient also states she supposed to have labs drawn soon and does not have time to get them drawn outpatient. Related Data Home Medications Medication Instructions Recorded Confirmed ofloxacin 0.3 % ear drops 1 drp otic (ear) BID Ear Infection 07/30/22 07/30/22 Previous Rx's Medication Instructions Recorded ondansetron 4 mg disintegrating 4 mg PO Q8H 3 days #9 tabs 07/31/22 tablet cephalexin 500 mg tablet 500 mg PO BID 7 days #14 tabs 10/31/22 Allergies Allergy/AdvReac Type Severity Reaction Status Date / Time sulfamethoxazole AdvReac Mild Hives Verified 10/31/22 18:14 [From Bactrim] trimethoprim [From Bactrim] AdvReac Mild Hives Verified 10/31/22 18:14 PFSH PFSH Disclaimer: The information contained in this section may have been updated after the patient was seen, as this information can be updated by other users. 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) Smoking Status: Never smoker alcohol intake: never substance use type: denies use current occupational status: employed Travel in the last 8 weeks: None household members: family housing: house ROS Obtained: Yes All systems reviewed & no additional complaints except as documented Physical Exam General General appearance: alert and in no apparent distress Head Head exam: atraumatic and normocephalic Eye Eye exam: Present normal appearance, PERRL and EOMI ENT ENT exam: Present mucous membranes moist Neck Neck exam: Present normal inspection, full ROM and trachea midline Respiratory Respiratory exam: Absent respiratory distress, wheezes, stridor, accessory muscle use or prolonged expiratory phase Cardiovascular Cardiovascular exam: Present normal rhythm Abdominal Exam Abdominal
[2023-04-04 18:30] VITALS: BP 120/66; PULSE 87; O2SAT 100
[2023-04-04 18:37] LABS: Squamous Epithelial Cell,Urine Occasional #/hpf (0-5); WBC,Urine Occasional #/hpf (0-3)
[2023-04-04 20:00] LABS: Basophils # 0.1 K/mm3 (0-0.2); Basophils % 0.5 % (0.1-2.0); Chloride 105 mmol/L (98-107); Eosinophils # 0.5 K/mm3 (0.0-0.4); Eosinophils % 3.5 % (0.1-12.0); Hemoglobin 13.7 g/dL (12.2-16.2); Lymphocytes # 2.8 K/mm3 (0.7-4.5); Mean Corpuscular HGB Conc 32.6 g/dL (31.8-35.4); Mean Corpuscular Hemoglobin 29.6 pg (27.0-31.2); Mean Corpuscular Volume 90.7 fl (81-99); Mean Platelet Volume 8.7 fl (7.4-10.4); Monocytes # 0.6 K/mm3 (0.1-1.0); Monocytes % 4.4 % (1.7-9.3); Neutrophils # 9.4 K/mm3 (1.8-7.8); Neutrophils % 70.6 % (37.0-80.0); Platelet Count 316 K/mm3 (142-424); Potassium 3.9 mmoL/L (3.5-5.1); Red Blood Count 4.63 M/mm3 (4.20-5.40); Red Cell Distribution Width 12.8 % (11.5-17.5); Sodium 137 mmol/L (136-145); White Blood Count 13.3 K/mm3 (4.8-10.8)
[2023-04-04 20:02] LABS: Alanine Aminotransferase 17 U/L (12-78); Alkaline Phosphatase 60 U/L (38-126); Aspartate Amino Transferase 27 U/L (14-36); Bilirubin,Total 0.4 mg/dl (0.2-1.3); Blood Urea Nitrogen 12 mg/dl (7-17); Creatinine Clearance Estimated 195 mL/min (50-200); Estimated Glomerular Filt Rate 153 ml/min (>60); GFR (African American) 185 ML/MIN (>60)
[2023-04-04 20:03] LABS: Albumin Level 4.3 g/dl (3.5-5.0); Albumin/Globulin Ratio 1.4 (1.1-1.8); Anion Gap 13.9 mEq/L (5-15); Calcium 8.5 mg/dl (8.4-10.2); Carbon Dioxide 22 mmol/L (22.0-30.0); Globulin 3.1 g/dL (1.3-3.2); Glucose 93 mg/dl (74-100); Total Protein,Serum 7.4 g/dl (6.3-8.2)
[2023-04-04 20:21] LABS: HCG,Quantitative 2112 mIU/ml (0-5.42)
[2023-04-04 20:30] VITALS: BP 130/79; PULSE 83; RESP 16; TEMP 36.6; O2SAT 99
== END 2023-04-04 20:31 | disposition home or self-care (01) ==
PROVIDERS: Emergency Provider Emergency Medicine; PCP Nurse Practitioner Family
DX: O26.891 Other specified pregnancy related conditions, first trimester (principal); R39.15 Urgency of urination; Z3A.01 Less than 8 weeks gestation of pregnancy
CPT/HCPCS: 80053; 81001; 84702; 85025; 99283

== ENCOUNTER → 2023-05-02 07:04 | Outpatient (CLI) | payer BC, OTHER, SELFPAY | PROVIDERS: PCP Nurse Practitioner Obstetrics & Gynecology; Visit Provider Nurse Practitioner Obstetrics & Gynecology | DX: Z34.91 Encounter for supervision of normal pregnancy, unspecified, first trimester (principal) ==

== ENCOUNTER → 2023-05-02 15:44 | Outpatient (CLI) | payer BC, OTHER, SELFPAY ==
[2023-05-02 16:13] LABS: Basophils # 0.1 K/mm3 (0-0.2); Basophils % 0.4 % (0.1-2.0); Eosinophils # 0.3 K/mm3 (0.0-0.4); Eosinophils % 2.3 % (0.1-12.0); Hematocrit 39.2 % (37.0-47.0); Hemoglobin 13.8 g/dL (12.2-16.2); Lymphocytes # 1.8 K/mm3 (0.7-4.5); Lymphocytes % 12.9 % (10-50); Mean Corpuscular HGB Conc 35.1 g/dL (31.8-35.4); Mean Corpuscular Volume 91.2 fl (81-99); Mean Platelet Volume 8.5 fl (7.4-10.4); Monocytes # 0.5 K/mm3 (0.1-1.0); Monocytes % 3.6 % (1.7-9.3); Neutrophils # 11.1 K/mm3 (1.8-7.8); Neutrophils % 80.8 % (37.0-80.0); Platelet Count 317 K/mm3 (142-424); Red Cell Distribution Width 12.5 % (11.5-17.5); White Blood Count 13.7 K/mm3 (4.8-10.8)
[2023-05-04 14:19] LABS: HIV Screen 4th Generation wRfx Non Reactive (Non Reactive); Rapid Plasma Reagin Ab Titer Non Reactive titer (NonRea<1:1); Rubella Antibodies, IgG 2.55 index (Immune >0.99)
[2023-05-05 10:44] LABS: Hepatitis B Surface Antigen Negative; Hepatitis C Antibody Non Reactive
== END ==
PROVIDERS: PCP Nurse Practitioner Family; Visit Provider Nurse Practitioner Obstetrics & Gynecology
DX: Z34.91 Encounter for supervision of normal pregnancy, unspecified, first trimester (principal); Z3A.09 9 weeks gestation of pregnancy
CPT/HCPCS: 36415; 85025; 86593; 86703; 86762; 86850; 87086; 87340; 87380; G0432

== ENCOUNTER 2023-07-19 14:00 | Outpatient (CLI) | payer BC, OTHER, SELFPAY ==
--- NOTE | 2023-07-19 14:01 | US_ITS ---
PROCEDURE: US OB /MATERNAL DETAIL CLINICAL INDICATION: 20 week anatomy scan COMPARISON: No exams were available for comparison FINDINGS: Transabdominal sonographic images of the pelvis were obtained. From her established due date she is 20 weeks 1 day. Single viable intrauterine gestation. Breech position. Placenta: Posteriorplacenta grade 1. There is an average amount of fluid. The cervix appears satisfactory. Closed and measuring 3.6 cm in length. Complete survey performed and was unremarkable on the submitted images as in PACS. No discrete anomalies identified on survey imaging by technologist. Active fetus. Three-vessel cord with satisfactory umbilical cord insertion. 4- chamber heart noted. Situs, aortic arch, LVOT, RVOT, appear normal. Survey of brain & ventricles Unremarkable. Cerebellum, thalamus, choroid plexus, cisterna magna appear normal. Face and neck survey unremarkable. Profile, nasion, lips and nose appeared normal. Diaphragm and chest views unremarkable. Abdomen: Both kidneys noted and unremarkable. Stomach and bladder noted and satisfactory. Spine: Survey of the spine satisfactory with no anomalies identified nor imaged. Cervical, thoracic, lower spine appear normal. Both arms and legs noted. Amniotic Fluid: Adequate. Measurements: Average ultrasound age 20weeks 0 days. Estimated due date by ultrasound age 0612/06/2023. Estimated weight 323g BPD = 19weeks 5days HC = 20weeks 0 days AC = 20weeks 1day FL = 19weeks 6days Growth Percentile= 35 Heart Rate = 144bpm Cerebellum = 20weeks 2days Humerus = 20weeks HC/AC is 1.17 FL/BPD is 0.7 FL/AC is 0.21 IMPRESSION: 1. Viable fetus in the breech presentation with a posterior placenta grade 1. 2. The fluid is within normal limits. 3. Anatomical scan appears normal. 4. biometry is consistent with the dates. Dictated by: Wilbert Armas MD 07/19/2023 16:47 Wilbert Armas MD in [place] 07/19/2023 16:47
== END 2023-07-19 23:59 ==
LOC: RAD 14:01
PROVIDERS: PCP Nurse Practitioner Obstetrics & Gynecology; Visit Provider Nurse Practitioner Obstetrics & Gynecology
DX: Z34.92 Encounter for supervision of normal pregnancy, unspecified, second trimester (principal); Z3A.20 20 weeks gestation of pregnancy
CPT/HCPCS: 76811

== ENCOUNTER 2023-08-08 15:46 | Outpatient (CLI) | payer BC, OTHER, SELFPAY ==
[2023-08-08 15:57] VITALS: BMI 29.1
[2023-08-08] MEDS: LACTATED RINGERS 1000ML 1,000 ML 999 ML IV (16:17)
[2023-08-08 16:31] VITALS: BP 132/78; PULSE 118; RESP 18; TEMP 36.4; O2SAT 98; BMI 29.1
[2023-08-08] MEDS: ONDANSETRON 4MG/2ML VIAL 4 MG IV (17:09)
[2023-08-08 17:15] LABS: Microscopic, Urine URINE MICROSCOPIC (MICROSCOPIC)
[2023-08-08 17:21] LABS: Basophils % 0.2 % (0.1-2.0); Eosinophils # 0.2 K/mm3 (0.0-0.4); Eosinophils % 1.1 % (0.1-12.0); Hematocrit 44.3 % (37.0-47.0); Hemoglobin 15.3 g/dL (12.2-16.2); Lymphocytes % 4.7 % (10-50); Mean Corpuscular HGB Conc 34.5 g/dL (31.8-35.4); Mean Corpuscular Hemoglobin 31.8 pg (27.0-31.2); Mean Corpuscular Volume 92.4 fl (81-99); Monocytes # 0.8 K/mm3 (0.1-1.0); Monocytes % 3.9 % (1.7-9.3); Neutrophils # 18.9 K/mm3 (1.8-7.8); Neutrophils % 90.1 % (37.0-80.0); Platelet Count 251 K/mm3 (142-424); Red Cell Distribution Width 13.4 % (11.5-17.5)
[2023-08-08 17:22] LABS: MANUAL DIFFERENTIAL MANUAL DIFFERENTIAL (MANUAL DIFF)
[2023-08-08 17:23] LABS: Alanine Aminotransferase 21 U/L (12-78); Albumin Level 4.2 g/dl (3.5-5.0); Albumin/Globulin Ratio 1.2 (1.1-1.8); Alkaline Phosphatase 90 U/L (38-126); Anion Gap 10.8 mEq/L (5-15); Aspartate Amino Transferase 28 U/L (14-36); Bilirubin,Total 0.6 mg/dl (0.2-1.3); Blood Urea Nitrogen 10 mg/dl (7-17); Calcium 9.2 mg/dl (8.4-10.2); Carbon Dioxide 23 mmol/L (22.0-30.0); Chloride 107 mmol/L (98-107); Creatinine Clearance Estimated 219 mL/min (50-200); Estimated Glomerular Filt Rate 153 ml/min (>60); GFR (African American) 185 ML/MIN (>60); Globulin 3.4 g/dL (1.3-3.2); Glucose 87 mg/dl (74-100); Potassium 3.8 mmoL/L (3.5-5.1); Sodium 137 mmol/L (136-145); Total Protein,Serum 7.6 g/dl (6.3-8.2)
[2023-08-08 17:34] LABS: Appearance,Urine CLEAR (Clear); Blood, Urine Negative (Negative); Color,Urine YELLOW (Yellow); Glucose,Urine (UA) Negative (Negative); Ketones,Urine 1+ (Negative); Leukocyte Esterase,Urine TRACE (Negative); Nitrate,Urine Negative (Negative); Protein,Urine TRACE (Negative); Specific Gravity, Urine >= 1.030 (1.005-1.030); Urobilinogen,Urine 0.2 EU/dl (0.2)
[2023-08-08 17:36] LABS: Lymphocytes % 6 % (10-50); Monocytes % 4 % (2-9); Neutrophils % 90 % (42-76); Total Cells Counted 100
[2023-08-08 17:38] LABS: Bilirubin,Urine 1+ (Negative)
[2023-08-08 17:38] LABS: Hypochromasia 1+; Macrocytosis 1+; Platelet Estimate Normal
[2023-08-08 17:49] LABS: Squamous Epithelial Cell,Urine Occasional #/hpf (0-5); WBC,Urine Occasional #/hpf (0-3)
[2023-08-08 17:51] LABS: Cannabinoid Screen,Urine Negative ng/ml (<50)
[2023-08-08 17:52] LABS: Cocaine Screen,Urine Negative ng/ml (<300)
[2023-08-08 17:53] LABS: Opiate Screen,Urine Negative ng/ml (<300)
[2023-08-08 17:54] LABS: Phencyclidine Screen,Urine Negative ng/ml (<25)
[2023-08-08 18:01] LABS: Barbiturates Screen,Urine Negative ng/ml (<200)
[2023-08-08 18:03] LABS: Methadone Screen,Urine Negative ng/ml (<300)
[2023-08-08 19:09] LABS: Benzodiazepines Screen,Urine Negative ng/ml (<200)
[2023-08-08 19:48] LABS: Amphetamine/Metha Screen,Urine Negative ng/ml (<1000)
== END 2023-08-08 18:08 | disposition home or self-care (01) ==
LOC: OBOUT 15:47 → OB 15:48
PROVIDERS: PCP Nurse Practitioner Family; Visit Provider Nurse Practitioner Obstetrics & Gynecology
DX: O26.892 Other specified pregnancy related conditions, second trimester (principal); O21.9 Vomiting of pregnancy, unspecified; R11.0 Nausea; R19.7 Diarrhea, unspecified; Z3A.23 23 weeks gestation of pregnancy
CPT/HCPCS: 80053; 80307; 81001; 85007; 85025; 96365; G0463; J2405

== ENCOUNTER 2023-09-13 06:55 | Outpatient (CLI) | payer BC, OTHER, SELFPAY ==
[2023-09-13 07:25] LABS: Basophils # 0.1 K/mm3 (0-0.2); Basophils % 0.5 % (0.1-2.0); Eosinophils # 0.4 K/mm3 (0.0-0.4); Eosinophils % 3.1 % (0.1-12.0); Hematocrit 40.4 % (37.0-47.0); Hemoglobin 12.9 g/dL (12.2-16.2); Lymphocytes # 2.4 K/mm3 (0.7-4.5); Lymphocytes % 17.2 % (10-50); Mean Corpuscular HGB Conc 31.9 g/dL (31.8-35.4); Mean Corpuscular Hemoglobin 31.3 pg (27.0-31.2); Mean Corpuscular Volume 98.2 fl (81-99); Mean Platelet Volume 9.7 fl (7.4-10.4); Monocytes # 0.7 K/mm3 (0.1-1.0); Monocytes % 4.7 % (1.7-9.3); Neutrophils # 10.2 K/mm3 (1.8-7.8); Neutrophils % 74.5 % (37.0-80.0); Platelet Count 215 K/mm3 (142-424); Red Blood Count 4.12 M/mm3 (4.20-5.40); Red Cell Distribution Width 13.8 % (11.5-17.5); White Blood Count 13.7 K/mm3 (4.8-10.8)
[2023-09-13 07:54] LABS: Glucose,Fasting 86 mg/dl (74-100)
[2023-09-13 09:27] LABS: Glucose 1 Hour 122 mg/dL (74-100)
== END 2023-09-13 23:59 ==
LOC: LAB 06:56
PROVIDERS: PCP Nurse Practitioner Family; Visit Provider Nurse Practitioner Obstetrics & Gynecology
DX: O26.893 Other specified pregnancy related conditions, third trimester (principal); Z3A.28 28 weeks gestation of pregnancy
CPT/HCPCS: 36415; 82951; 85025

== ENCOUNTER 2023-11-05 13:27 | Emergency (ER) | payer BC, OTHER, SELFPAY ==
[2023-11-05 14:05] VITALS: BP 127/64; PULSE 103; RESP 20; TEMP 36.8; O2SAT 95; BMI 31.9
--- NOTE | 2023-11-05 14:35 | ED_ITS ---
Discharge Plan Disposition Patient Disposition: Home, Self-Care Condition: Good Prescriptions Prescriptions: New amoxicillin 500 mg capsule 500 mg PO BID 10 Days Qty: 20 0RF No Action Classic 28 mg iron- 800 mcg tablet 1 tab PO DAILY ferrous sulfate 325 mg (65 mg iron) tablet 325 mg PO DAILY Qty: 30 11RF famotidine [Pepcid] 20 mg tablet 20 mg PO DAILY Qty: 30 2RF Referrals Follow up/Referrals: Preethi Avilez [Primary Care Provider] - See instructions Activity Restrictions/Add. Instructions Additional Instructions/Restrictions: *Monitor Temp, Over the counter Motrin or Tylenol as directed/as needed Tylenol every 4 hours and Motrin every 6 hours (as long as your family doctor has told you that you can take it) for fever or pain. and straight to ER if unable to lower temp less than 101.0 after medication given *Warm salt water gargles may help to soothe the throat *Throat Lozenges? *Warm fluids like tea with honey may help to soothe the throat? *Sleep elevated *Humidifier/Vaporizer Take medication as prescribed Your throat swab was sent for culture. Those results are typically sent to your primary care. Be sure to follow up in 2-3 days with your family doctor/primary care physician if no improvement so they can review those result and treat if necessary. If you don?t have a primary care doctor, I recommend you get one but in the mean time, you will have to return to a walk in clinic Follow up IMMEDIATELY for new or worsening symptoms or no Noticeable improvement over the next 48-72 hours. 911 for difficulty breathing or swallowing Clinical Impressions Clinical Impression: Sinusitis Instructions Patient Instructions: DI for Sinusitis, Sinusitis Discharge ED Provider: Alejandra Zimmerman [facility] [place] HPI General Stated complaint: sore throat, cough Mode of Arrival: Ambulatory Source of Information: Patient Limitations: No Limitations Time Seen by Provider: 11/05/23 14:35 Description of Symptoms (Recalled from Triage Doc. by RN): PATIENT C/O SORE THROAT, COUGH AND RUNNY NOSE X 5 DAYS HEENT Symptoms (Recalled from RN notes): Yes Resp Symptoms (Recalled from RN notes): Yes Skin Symptoms (Recalled from RN notes): No MS Symptoms (Recalled from RN notes): No Functional Status (Recalled from RN notes): WNL History of Present Illness Provider Complaint: Patient states that she hasn't felt well for about a week and she has been having sore throat, sinus congestion and pressure, and cough States at times her nose will run but feels the pressure behind her eyes states that she is 34wks OB and has taken everything she can OTC but nothing has helped Related Data Home Medications Medication Instructions Recorded Confirmed vits no.126-ferrous fum 1 tab PO DAILY 05/02/23 10/24/23 28 mg iron-folic acid 800 mcg tablet (Classic ) Previous Rx's Medication Instructions Recorded ferrous sulfate 325 mg (65 mg 325 mg PO DAILY #30 tabs 07/26/23 iron) tablet famotidine 20 mg tablet (Pepcid) 20 mg PO DAILY #30 tabs 09/13/23 amoxicillin 500 mg capsule 500 mg PO BID 10 days #20 caps 11/05/23 Allergies Allergy/AdvReac Type Severity Reaction Status Date / Time sulfamethoxazole AdvReac Mild Hives Verified 10/24/23 09:31 [From Bactrim] trimethoprim [From Bactrim] AdvReac Mild Hives Verified 10/24/23 09:31 Spinal AdvReac Severe Hypertensio Uncoded 10/24/23 09:31 n Worker's Comp Is this a Worker's Comp case?: No [facility] Disclaimer: The information contained in this section may have been updated after the patient was seen, as this information can be updated by other users. Medical History Nausea and vomiting of , antepartum Anxiety 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 History of delivery Hx of wisdom tooth extraction Hx of tonsillectomy Hx laparoscopic cholecystectomy Family History Other Asthma Diabetes Heart attack Hypertension Social History Smoking Status: Never smoker alcohol intake: never substance use type: denies use current occupational status: employed Travel in the last 8 weeks: None household members: family housing: house ROS Obtained: Yes All systems reviewed & no additional complaints except as documented and Yes Systems reviewed as appropriate & no additional complaints except as documented Constitutional Constitutional: Reports system reviewed and no additional complaints, except as documented, Reports as per HPI and Reports headache(s) ENT Ears, Nose, Mouth, and Throat: Reports system reviewed and no additional complaints, except as documented, Reports as per HPI, Reports headache(s), Reports sinus pain, Reports sinus pressure and Reports sore throat Cardiovascular Cardiovascular: Reports system reviewed and no additional complaints, except as documented and Reports as per HPI Respiratory Respiratory: Reports system reviewed and no additional complaints, except as documented and Reports as per HPI Gastrointestinal Gastrointestingal: Reports system reviewed and no additional complaints, except as documented and as per HPI Neurologic Neurologic: Reports headache(s) Physical Exam General General appearance: alert and in no apparent distress ENT ENT exam: Present mucous membranes moist Expanded ENT Exam Nose exam: Present sinus tenderness Throat exam: Present other (Pharyngeal erythema noted with PND) Respiratory Respiratory exam: Present normal lung sounds bilaterally; Absent respiratory distress or wheezes Cardiovascular Cardiovascular exam: Present regular rate, normal rhythm and normal heart sounds Neurological Exam Neurological exam: Present alert, oriented X3 and normal gait Medical Decision Making Tc Inquiry Pt receiving controlled substance: No Tc was queried for this patient: No Vital Signs: 11/05/23 14:05 Temperature 98.2 F Temperature Source Oral Pulse Rate [Left Brachial] 103 H Respiratory Rate 20 Blood Pressure [Left Arm] 127/64 Blood Pressure Mean [Left Arm] 85 Blood Pressure Source [Left Arm] Automatic Cuff Blood Pressure Position [Left Arm] Sitting 02 Sat by Pulse Oximetry 95 Oxygen Delivery Method Room Air Medical Decision Narrative: Medications discussed with pharmacy due to
[2023-11-05 14:50] VITALS: BP 127/64; PULSE 103; RESP 20; TEMP 36.8; O2SAT 95
[2023-11-05 14:51] LABS: UTC Strep Screen (Rapid) Negative (Negative)
== END 2023-11-05 15:29 | disposition home or self-care (01) ==
PROVIDERS: Emergency Provider Nurse Practitioner; PCP Nurse Practitioner Family
DX: O26.893 Other specified pregnancy related conditions, third trimester (principal); J01.90 Acute sinusitis, unspecified; R07.0 Pain in throat; R05.9 Cough, unspecified; R09.81 Nasal congestion; Z3A.34 34 weeks gestation of pregnancy
CPT/HCPCS: 87880; 99212; 99214; G0463

== ENCOUNTER 2023-11-07 16:56 | Outpatient (CLI) | payer BC, OTHER, SELFPAY | END 2023-11-07 23:59 | disposition home or self-care (01) | LOC: LAB.DROPOF 16:56 | PROVIDERS: PCP Nurse Practitioner Obstetrics & Gynecology; Visit Provider Nurse Practitioner Obstetrics & Gynecology | DX: O26.893 Other specified pregnancy related conditions, third trimester (principal); Z3A.36 36 weeks gestation of pregnancy; B95.1 Streptococcus, group B, as the cause of diseases classified elsewhere | CPT/HCPCS: 86403 ==

== ENCOUNTER 2023-11-14 09:16 | Outpatient (CLI) | payer BC, OTHER, SELFPAY ==
--- NOTE | 2023-11-14 09:16 | US_ITS ---
PROCEDURE: US OB BIOPHYSICAL PROFILE CLINICAL INDICATION: SGA COMPARISON: No exams were available for comparison FINDINGS: Transabdominal sonographic images of the uterus were obtained. From her established due date she is 37weeks 0 days. The following parameters are obtained: Viable Fetus in the cephalic presentation with a posterior placenta grade 2. Average ultrasound age is 35weeks 3days Estimated weight 2,448g Cervix measures 3.68 cm. Measurements: heart Rate = 136bpm BPD = 36weeks 2days, 42 percentile HC = 36weeks 2days, 12 percentile AC = 33weeks 3days, < 2 percentile FL = 35weeks 2days, 12 percentile HC/AC is 1.09 FL/BPD is 0.77 FL/AC is 0.23 7 percentile Amniotic fluid index: 16.03cm, MVP 6.14 cm. Qualitative AFV:2 Breathing movements: 2 Gross Body Movements: 0 Tone: 2 Biophysical profile score: 6 Doppler evaluation of the umbilical artery: SD ratio: 2.2-2.5 No obvious anomalies evident.Kidneys, bladder, stomach, four-chamber heart, three-vessel cord appear normal. IMPRESSION: 1. Viable fetus in the cephalic presentation with a posterior placenta grade 2. 2. The fluid is within normal limits with an amniotic fluid index of 16.03 cm, MVP 6.14 cm. 3. Biophysical profile is 8/8 with good breathing movement and movement seen. 4. The fetus is showing asymmetric growth restriction with the abdominal circumference currently below the 2nd percentile. 5. Feet SD ratio is normal at 2 0.2-2.5. 6. Suggest twice week close follow-up. Dictated by: Wilbert Armas MD 11/14/2023 11:57 Wilbert Armas MD in [place] 11/14/2023 11:57
== END 2023-11-14 23:59 | disposition home or self-care (01) ==
LOC: RAD 09:16
PROVIDERS: PCP Nurse Practitioner Family; Visit Provider Nurse Practitioner Obstetrics & Gynecology
DX: O36.5930 Maternal care for other known or suspected poor fetal growth, third trimester, not applicable or unspecified (principal); Z3A.37 37 weeks gestation of pregnancy
CPT/HCPCS: 76816; 76819; 76820

== ENCOUNTER 2023-11-20 11:50 | Outpatient (CLI) | payer BC, OTHER, SELFPAY ==
[2023-11-20 11:57] VITALS: BMI 32.3
[2023-11-20 12:05] VITALS: BP 120/65; PULSE 83; RESP 17; TEMP 36.6; O2SAT 98; BMI 32.3
== END 2023-11-20 12:45 | disposition home or self-care (01) ==
LOC: OBOUT 11:51 → OB 11:53
PROVIDERS: PCP Nurse Practitioner Family; Visit Provider Nurse Practitioner Obstetrics & Gynecology
DX: O26.893 Other specified pregnancy related conditions, third trimester (principal); Z3A.37 37 weeks gestation of pregnancy
CPT/HCPCS: G0463

== ENCOUNTER 2023-11-23 04:49 | Inpatient (IN) | payer BC, OTHER, SELFPAY ==
[2023-11-23 04:51] VITALS: BMI 32.3
[2023-11-23] MEDS: LACTATED RINGERS 1000ML 1,000 ML 500 ML IV (05:20)
[2023-11-23 05:25] LABS: Microscopic, Urine URINE MICROSCOPIC (MICROSCOPIC)
[2023-11-23 05:27] LABS: Appearance,Urine CLEAR (Clear); Bilirubin,Urine Negative (Negative); Blood, Urine Negative (Negative); Color,Urine YELLOW (Yellow); Glucose,Urine (UA) Negative (Negative); Ketones,Urine Negative (Negative); Leukocyte Esterase,Urine TRACE (Negative); Nitrate,Urine Negative (Negative); PH,Urine 6.5 (5.0-8.5); Protein,Urine Negative (Negative); Specific Gravity, Urine 1.025 (1.005-1.030); Urobilinogen,Urine 0.2 EU/dl (0.2)
[2023-11-23 05:28] LABS: Basophils # 0.1 K/mm3 (0-0.2); Basophils % 0.8 % (0.1-2.0); Eosinophils # 0.4 K/mm3 (0.0-0.4); Eosinophils % 2.7 % (0.1-12.0); Hematocrit 37.9 % (37.0-47.0); Hemoglobin 13.2 g/dL (12.2-16.2); Lymphocytes # 2.6 K/mm3 (0.7-4.5); Lymphocytes % 19.6 % (10-50); Mean Corpuscular HGB Conc 34.8 g/dL (31.8-35.4); Mean Corpuscular Hemoglobin 32.1 pg (27.0-31.2); Mean Corpuscular Volume 92.1 fl (81-99); Mean Platelet Volume 9.9 fl (7.4-10.4); Monocytes # 0.7 K/mm3 (0.1-1.0); Monocytes % 5.3 % (1.7-9.3); Neutrophils # 9.3 K/mm3 (1.8-7.8); Neutrophils % 71.6 % (37.0-80.0); Platelet Count 238 K/mm3 (142-424); Red Blood Count 4.12 M/mm3 (4.20-5.40); Red Cell Distribution Width 14.6 % (11.5-17.5); White Blood Count 13.1 K/mm3 (4.8-10.8)
[2023-11-23 05:30] VITALS: BP 131/72; PULSE 87; RESP 16; TEMP 37; O2SAT 97; BMI 32.3
[2023-11-23 05:36] LABS: Anion Gap 13.5 mEq/L (5-15); Blood Urea Nitrogen 9 mg/dl (7-17); Carbon Dioxide 23 mmol/L (22.0-30.0); Chloride 104 mmol/L (98-107); Creatinine Clearance Estimated 304 mL/min (50-200); Estimated Glomerular Filt Rate 198 ml/min (>60); GFR (African American) 239 ML/MIN (>60); Glucose 87 mg/dl (74-100); Potassium 3.5 mmoL/L (3.5-5.1); Sodium 137 mmol/L (136-145)
[2023-11-23 05:38] LABS: Bacteria,Urine Trace /lpf; Mucus,Urine Trace /lpf
[2023-11-23 05:54] LABS: Amphetamine/Metha Screen,Urine Negative ng/ml (<1000)
[2023-11-23 05:55] LABS: Barbiturates Screen,Urine Negative ng/ml (<200); Benzodiazepines Screen,Urine Negative ng/ml (<200)
[2023-11-23 05:56] LABS: Cannabinoid Screen,Urine Negative ng/ml (<50)
[2023-11-23 05:57] LABS: Cocaine Screen,Urine Negative ng/ml (<300); Methadone Screen,Urine Negative ng/ml (<300)
[2023-11-23 05:58] LABS: Opiate Screen,Urine Negative ng/ml (<300)
[2023-11-23 05:59] LABS: Phencyclidine Screen,Urine Negative ng/ml (<25)
--- NOTE | 2023-11-23 07:15 | EXP.ANES.CKL ---
[facility] Disclaimer: The information contained in this section may have been updated after the patient was seen, as this information can be updated by other users. Medical History Nausea and vomiting of , antepartum Anxiety 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 History of delivery Hx of wisdom tooth extraction Hx of tonsillectomy Hx laparoscopic cholecystectomy Family History Other Asthma Diabetes Heart attack Hypertension Social History (Updated 11/23/23 @ 05:14 by Yenifer Montaño RN) Smoking Status: Never smoker alcohol intake: never substance use type: denies use current occupational status: employed Travel in the last 8 weeks: None household members: family housing: house [facility] Anesthesia Checklist Patient Identification Patient Identification: Arm Band, Family and Verbal (Name & ) Structural Data Admitted From: Home Planned Operative Procedure/s: Repeat C-sxn Consent for Planned Operative Procedure(s) Verified: Yes Verified Documents: Surgical Consent and History and Physical NPO Status Verified Time NPO: 21:00 Chart Verification Results Verified: CBC, BMP, Type and Screen and ECG (ECHO) Additional verifications Patient : Yes (Term IUP for C-sxn) Anesthesia Reactions: No Cardiovascular Assessment Heart Sounds: S1 & S2 Pulse Rhythm: Irregular Peripheral Edema: Yes (2+ ANDRE LE) Airway Assessment Mallampati Score:: Class II C-Spine Mobility Assessed: Yes (FROM) TMJ Mobility Assessed: Yes Dentition: Good Dentition (Nothing loose per pt.) Neurological Assessment Level of Consciousness: Awake, Alert, Appropriate and Follows Commands Hx Seizures: No Numbness or tingling in extremities: No Anesthesia Plan Anesthesia Risk discussed: Yes Anesthesia Plan: Verified ASA Class: II Anesthesia Type: Spinal (w/TAP Block post-op)
--- NOTE | 2023-11-23 08:55 | P.HP_ITS ---
History of Present Illness *Admission Date: 11/23/23 *Reason for visit:: Term , SGA, previous *History of present illness: She is a 23-year-old 3 para 2 at 38 and 1 weeks gestational age. Recent ultrasound showed that the baby was seventh centile with the AC less than the second centile. As result of that she is offered repeat lower segment transverse section at term. The risk and benefits of surgery were discussed with the patient prior to surgery. O+ blood, Rubella immune, GBS positive PFSH PFSH Disclaimer: The information contained in this section may have been updated after the patient was seen, as this information can be updated by other users. Medical History Nausea and vomiting of , antepartum Anxiety 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 History of delivery Hx of wisdom tooth extraction Hx of tonsillectomy Hx laparoscopic cholecystectomy Family History Other Asthma Diabetes Heart attack Hypertension Social History (Updated 11/23/23 @ 05:14 by Yenifer Montaño RN) Smoking Status: Never smoker alcohol intake: never substance use type: denies use current occupational status: employed Travel in the last 8 weeks: None household members: family housing: house Review of Systems Review of Systems Review of systems:: pertinent systems reviewed and negative unless documented below Meds Home Medications and Allergies Home Medications Medication Instructions Recorded Confirmed Type vits no.126-ferrous fum 1 tab PO DAILY 05/02/23 11/23/23 History 28 mg iron-folic acid 800 mcg tablet (Classic ) ferrous sulfate 325 mg (65 mg 325 mg PO DAILY #30 tabs 07/26/23 11/23/23 Rx iron) tablet famotidine 20 mg tablet (Pepcid) 20 mg PO DAILY #30 tabs 09/13/23 11/23/23 Rx New Prescriptions to Start Prescriptions: Allergies Allergy/AdvReac Type Severity Reaction Status Date / Time sulfamethoxazole AdvReac Mild Hives Verified 11/23/23 05:11 [From Bactrim] trimethoprim [From Bactrim] AdvReac Mild Hives Verified 11/23/23 05:11 Exam Data for Last 24 hours Vital signs and Labs for Last 24 Hours: Temp Pulse Resp BP Pulse Ox O2 Del Method 98.6 F 87 16 131/72 97 Room Air 11/23/23 05:30 11/23/23 05:30 11/23/23 05:30 11/23/23 05:30 11/23/23 05:30 11/23/23 05:30 Laboratory Results - last 24 hr 11/23/23 05:00: Urine Color Yellow, Urine Appearance Clear, Urine pH 6.5, Ur Specific [place] 1.025, Urine Protein Negative, Urine Glucose (UA) Negative, Urine Ketones Negative, Urine Blood Negative, Urine Nitrate Negative, Urine Bilirubin Negative, Urine Urobilinogen 0.2, Ur Leukocyte Esterase Trace, Urine RBC None, Urine WBC 5-10, Ur Squamous Epith Cells 3-5, Urine Bacteria Trace, Urine Mucus Trace, Urine Opiates Screen Negative, Urine Methadone Screen Negative, Ur Barbituates Screen Negative, Ur Phencyclidine Scrn Negative, Ur Amphetamines Screen Negative, U Benzodiazepines Scrn Negative, Urine Cocaine Screen Negative, U Marijuana (THC) Screen Negative 11/23/23 05:15: WBC 13.1 H, RBC 4.12 L, Hgb 13.2, Hct 37.9, MCV 92.1, MCH 32.1 H , MCHC 34.8, RDW 14.6, Plt Count 238, MPV 9.9, Neut % (Auto) 71.6, Lymph % (Auto) 19.6, [place] % (Auto) 5.3, Eos % (Auto) 2.7, Baso % (Auto) 0.8, Neut # (Auto) 9.3 H, Lymph # (Auto) 2.6, [place] # (Auto) 0.7, Eos # (Auto) 0.4, Baso # (Auto) 0.1, Sodium 137, Potassium 3.5, Chloride 104, Carbon Dioxide 23, Anion Gap 13.5, BUN 9, Creatinine 0.40 L, Estimated Creat Clear 304 H, Estimated GFR 198, Est GFR ( Amer) 239, Glucose 87, Calcium 9.0, Blood Type O Positive, Antibody Screen Negative I & O for Last 24 hours: Intake & Output 11/20/23 11/21/23 11/22/23 11/23/23 11:59 11:59 11:59 11:59 Weight 194 lb Constitutional Constitutional: no acute distress *Routine HEENT Exam Head: Present normocephalic Eye: Present EOMI and PERRL ENT: Present mucous membranes moist *Routine Neck Exam Neck: Present supple; Absent lymphadenopathy *Routine Respiratory Exam Respiratory: Present CTA bilaterally *Routine Cardiovascular Exam Cardiovascular: Present RRR *Routine Abdominal Exam Abdominal: Present soft and normoactive bowel sounds; Absent tenderness *Routine Rectal Exam Rectal:: deferred *Routine Genitalia Exam Genitalia:: deferred *Routine Extremities Exam Extremities: Absent cyanosis, clubbing or edema *Routine Skin Exam Skin: Present warm; Absent rash *Routine Neurological Exam Neurological: Present alert and oriented X3 Assessment and Plan *Assessment and plan (1) IUGR, : Status: Acute Category: Medical Code(s): O36.5990 - Maternal care for other known or suspected poor growth, unspecified trimester, not applicable or unspecified (2) Previous section complicating : Status: Resolved Category: Medical Code(s): O34.219 - Maternal care for unspecified type scar from previous delivery (3) Delivery by section of full-term : Status: Resolved Category: Medical Code(s): O82 - Encounter for delivery without indication Plan She is admitted for repeat lower segment transverse section.
[2023-11-23 09:00] VITALS: BP 151/73; PULSE 68; RESP 12; TEMP 36.4; O2SAT 98
[2023-11-23 09:10] VITALS: BP 152/71; PULSE 69; RESP 14; O2SAT 98
[2023-11-23 09:20] VITALS: BP 151/70; PULSE 70; RESP 14; O2SAT 98
[2023-11-23 09:24] LABS: Microscopic,Cath URINE MICROSCOPIC (MICROSCOPIC)
[2023-11-23 09:30] VITALS: BP 151/70; PULSE 70; RESP 14; TEMP 36.3; O2SAT 98
[2023-11-23 09:30] LABS: Appearance,Urine/Cath CLEAR (Clear); Bilirubin,Cath Negative (Negative); Blood, Urine/Cath Negative (Negative); Color,Urine/Cath YELLOW (Yellow); Glucose,Urine/Cath (UA) Negative (Negative); Ketones,Urine/Cath Negative (Negative); Leukocyte Esterase,Cath Negative (Negative); Nitrate,Cath Negative (Negative); PH,Urine/Cath 7.5 (5.0-8.5); Protein,Urine/Cath Negative (Negative); Specific Gravity, Urine/Cath <= 1.005 (1.005-1.030); Urobilinogen,Cath 0.2 EU/dl (0.2)
--- NOTE | 2023-11-23 09:56 | EXP.OP.NOTE ---
Date of procedure: 11/23/23 Pre-op Diagnosis:: Term , previous section, IUGR Post-op Diagnosis:: Term , previous section, IUGR, uterine atony Procedure performed:: Repeat lower segment transverse section and B-shankar suture. Surgeon:: Wilbert Armas MD Net Developer Architect(s):: Dr. Sher INTERVENTIONAL RADIOLOGY TECHNOLOGIST:: Gema Reynosodaniel Anesthesia: spinal Estimated blood loss (mL): 990 Clinical Note:: She is a 23-year-old 3 para 2 at 38 and 1 weeks gestational age. She had 2 previous sections. Recent ultrasound revealed that the baby was 7th percentile with AC below the 2nd percentile. As result of that she was offered repeat lower segment transverse section a week earlier. Operative findings:: She delivered a liveborn female child at 7:52 AM on the morning of November 23, 2023. The baby had Apgars of 6 at 1 minute, 6 at 5 minutes and 8 at 10 minutes. There was a nuchal cord as well as a cord around the arm and axilla. Ovaries and tubes appeared normal. The uterus was quite boggy after the surgery. Baby weighed 6 pounds 10 ounces. Operative note:: She was taken to the operating room where spinal anesthesia was found be adequate. She was prepped and draped in normal sterile fashion in the supine position. A Almaguer catheter was in the bladder. A Pfannenstiel skin incision was made with knife then carried through to the underlying layer of fascia with cautery. The fascia was opened in the midline with cautery and extended laterally using Rogers scissors. Beto clamps were applied to the superior aspect of the fascial incision which was tented up and the underlying rectus muscles dissected off using cautery. The Beto clamps were then applied to the inferior aspect of the fascial incision which in a similar fashion was tented up and the underlying rectus muscles dissected off using cautery. The rectus muscles were then in the midline, the peritoneum identified, and entered sharply. An Kevin retractor was then inserted into the abdominal cavity. Bladder peritoneum was opened midline extended laterally using Metzenbaum scissors. Transverse incision was made through the uterine muscle through to the amnion. This incision was then extended superiorly and inferiorly using the fingers as traction. The amnion was entered sharply with knife. There was clear amniotic fluid. The infant's head was then delivered atraumatically. There was a nuchal cord around the neck and it extended under the baby's arm into the axilla. This was reduced. This was followed by the anterior shoulder and the rest of the infant's body atraumatically. The oropharynx and nasopharynx were bulb suctioned. The cord was then doubly clamped and cut. The was then handed off to Dr. Flores who assigned Apgars of 6 at 1 minute and 6 at 5 minutes and 8 at 10 minutes.. We then obtained cord blood. Using gentle traction on the cord and fundal massage I was able to easily deliver the placenta intact. It had a normal three-vessel cord. The uterus was then cleared of clots and debris . The uterine incision was then closed using running 0 Vicryl suture in a locked fashion. A second layer of the same suture was used to imbricate the first layer. The uterus was quite boggy despite IV oxytocin and I elected to place a B shankar suture. I took a large bite anteriorly with #1 Vicryl suture and then went over the top of the fundus of the uterus and took 2 bites posteriorly. I then came back anteriorly and took another bite. When I went to tie the suture the exterior uterine wall tore somewhat and this required number of stitches to repair. After assuring hemostasis I then placed a large piece of Surgicel as well as Surgicel powder over the uterine incision. Hemostasis was assured. The gutters and cul-de-sac were then cleared of clots and debris . Once again hemostasis was assured. The peritoneum was then closed with 2-0 Vicryl suture . The fascia was closed using running #1 Vicryl suture. The subcutaneous tissues were then irrigated with warm water followed by closure Aubree's fascia using running 2-0 Monocryl suture. The skin was closed with absorbable daniel. I then cleaned the skin with Hibiclens. Sterile dressings were applied. Anesthesia then performed a tap block under ultrasound guidance. She tolerated the procedure well and was taken to the recovery room in excellent condition. All sponges, instrument and needle counts were correct. Estimated blood loss was approximately 990 mL.. Condition: stable Disposition: PACU Specimens:: Placenta to pathology since she was IUGR. Complications:: None
[2023-11-23] MEDS: OXYTOCIN/RINGERS LACTATE 30 UNITS/500 ML BAG 40 UNITS IV (10:09)
[2023-11-23] MEDS: LACTATED RINGERS 1000ML 1,000 ML 125 ML IV (10:09)
[2023-11-23 11:00] VITALS: BP 129/62; PULSE 100; RESP 18; TEMP 36.6; O2SAT 98
[2023-11-23] MEDS: ACETAMINOPHEN 500MG TAB 1000 MG PO ×2 (11:19→16:14)
[2023-11-23 11:33] LABS: Bacteria,Urine/Cath TRACE /lpf; Squamous Epithelial Ur./Cath Occasional #/hpf (0-5); WBC,Urine/Cath Occasional #/hpf (0-3)
[2023-11-23] MEDS: CEFAZOLIN SODIUM 2 GM in 0.9 % SODIUM CHLORIDE 100 ML IV (16:13)
[2023-11-23] MEDS: SIMETHICONE 80MG CHEWABLE TABLET 160 MG PO ×2 (16:14→20:19)
[2023-11-23] MEDS: SENNA 8.6MG TABLET 8.59999999999999964 MG PO (16:14)
[2023-11-23] MEDS: KETOROLAC 30MG/ML VIAL 30 MG IV (16:15)
[2023-11-23 16:38] LABS: Hematocrit 36.9 % (37.0-47.0); Hemoglobin 12.1 g/dL (12.2-16.2)
[2023-11-23] MEDS: PRENATAL MULTIVITAMIN W/IRON 1 EACH PO (18:12)
[2023-11-24] MEDS: CEFAZOLIN SODIUM 2 GM in 0.9 % SODIUM CHLORIDE 100 ML IV (00:05)
[2023-11-24] MEDS: ACETAMINOPHEN 500MG TAB 1000 MG PO ×3 (03:56→16:03)
[2023-11-24] MEDS: KETOROLAC 30MG/ML VIAL 30 MG IV (04:00)
[2023-11-24 06:11] LABS: Hematocrit 30.2 % (37.0-47.0)
[2023-11-24 06:18] LABS: Hemoglobin 10.2 g/dL (12.2-16.2)
[2023-11-24 07:32] VITALS: BP 114/59; PULSE 85; RESP 18; TEMP 37.2; O2SAT 99
[2023-11-24] MEDS: SENNA 8.6MG TABLET 8.59999999999999964 MG PO (07:39)
[2023-11-24] MEDS: SIMETHICONE 80MG CHEWABLE TABLET 160 MG PO (07:39)
--- NOTE | 2023-11-24 08:37 | EXP.ACUTE.PN ---
Subjective *Date: 11/24/23 *Time: 08:37 Interval history: She is doing very well this morning. She is eating and drinking and ambulating. She is bottlefeeding. Her lochia is normal. Hemoglobin is 10.2. Medical Exam Vital signs and Labs for Last 24 Hours: Vital Signs Temp Pulse Resp BP Pulse Ox O2 Del Method 11/24/23 07:32 98.9 F 85 18 114/59 L 99 Room Air 11/23/23 11:00 97.9 F 100 H 18 129/62 98 Room Air 11/23/23 09:30 97.4 F L 70 14 151/70 H 98 Room Air 11/23/23 09:20 70 14 151/70 H 98 Room Air 11/23/23 09:10 69 14 152/71 H 98 Room Air 11/23/23 09:00 97.5 F L 68 12 151/73 H 98 Room Air Laboratory Results - last 24 hr 11/23/23 16:07: Hgb 12.1 L, Hct 36.9 L 11/23/23 : Urine Color Yellow, Urine Appearance Clear, Urine pH 7.5, Ur Specific [place] <= 1.005, Urine Protein Negative, Urine Glucose (UA) Negative, Urine Ketones Negative, Urine Blood Negative, Urine Nitrate Negative, Urine Bilirubin Negative, Urine Urobilinogen 0.2, Ur Leukocyte Esterase Negative, Urine RBC None, Urine WBC Occasional, Ur Squamous Epith Cells Occasional, Urine Bacteria Trace 11/24/23 05:48: Hgb 10.2 L D, Hct 30.2 L I & O for Labs for Last 24 Hours: Intake & Output 11/21/23 11/22/23 11/23/23 11/24/23 11:59 11:59 11:59 11:59 Weight 194 lb Head: Present atraumatic Neck: Present normal inspection Respiratory: Present normal respiratory effort; Absent accessory muscle use Assessment and Plan *Assessment and plan (1) IUGR, : Status: Acute Category: Medical Code(s): O36.5990 - Maternal care for other known or suspected poor growth, unspecified trimester, not applicable or unspecified (2) Previous section complicating : Status: Resolved Category: Medical Code(s): O34.219 - Maternal care for unspecified type scar from previous delivery (3) Delivery by section of full-term : Status: Resolved Category: Medical Code(s): O82 - Encounter for delivery without indication (4) Uterine atony, , without hemorrhage: Status: Acute Category: Medical Code(s): O75.89 - Other specified complications of labor and delivery Plan She is doing very well this morning. Her pain is reasonably well-controlled. We will plan to send her home tomorrow.
--- NOTE | 2023-11-24 09:18 | EXP.ANES.II ---
[facility] Anesthesia Record Part II Anesthesia Record Part II Discharge Time: 09:30 Destination: Obstetric PACU nurse assessment reviewed?: Yes Patient Condition:: Good Anesthesia Complications:: None Swallowing reflex intact?: Yes Airway Patency: Patent Cyanosis?: No Blood Pressure: 151/70 SaO2: 98 Respiratory Rate: 14 Pulse Rate: 70 Temperature: 97.4 F Mental Status: Alert & Oriented Pain level:: 0 Nausea and/or vomitting:: None Intake, IV Amount: 1,500 Hydration: Adequate
[2023-11-24 09:20] VITALS: BP 151/70; PULSE 70; RESP 14; TEMP 36.3; O2SAT 98
[2023-11-24] MEDS: IBUPROFEN 400 MG TABLET 800 MG PO (16:01)
[2023-11-24] MEDS: PRENATAL MULTIVITAMIN W/IRON 1 EACH PO (16:01)
--- NOTE | 2023-11-24 16:24 | P.DS_ITS ---
General Admission date:: 11/23/23 Discharge date: 11/25/23 HPI HPI HPI: She is a 23-year-old 3 para 2 at 38 and 1 weeks gestational age. Recent ultrasound showed that the baby was seventh centile with the AC less than the second centile. As result of that she is offered repeat lower segment transverse section at term. The risk and benefits of surgery were discussed with the patient prior to surgery. O+ blood, Rubella immune, GBS positive Hospital Course Hospital Course Hospital Course: She underwent a repeat section on November 23, 2023. She delivered a liveborn female child at 7:52 AM. The baby had Apgars of 6 at 1 minute, 6 at 5 minutes and 8 at 10 minutes. Baby weighed 6 pounds 10 ounces. She did have some uterine atony and this required B-shankar suture. Her hemoglobin however is 10.2 and stable. She has done well and has remained afebrile throughout her ho spitalization. She is eating and drinking and ambulating. She is bottlefeeding. Her lochia is normal. She has O+ blood, she is rubella immune and was group B streptococcus positive. Her surgery scheduler is Dr. Flores. Exam Data for Last 24 hours Vital signs and Labs for Last 24 Hours: Temp Pulse Resp BP Pulse Ox O2 Del Method 98.9 F 85 14 114/59 L 99 Room Air 11/24/23 07:32 11/24/23 07:32 11/24/23 09:20 11/24/23 07:32 11/24/23 07:32 11/24/23 07:32 Laboratory Results - last 24 hr 11/23/23 16:07: Hgb 12.1 L, Hct 36.9 L 11/24/23 05:48: Hgb 10.2 L D, Hct 30.2 L I & O for Last 24 hours: Intake & Output 11/22/23 11/23/23 11/24/23 11/25/23 11:59 11:59 11:59 11:59 Intake Total 1500 / 1500 Balance 1500 / 1500 Weight 194 lb Constitutional Constitutional: no acute distress *Routine HEENT Exam Head: Present normocephalic *Routine Neck Exam Neck: Present supple and full ROM *Routine Respiratory Exam Respiratory: Present normal respiratory effort; Absent accessory muscle use *Routine Abdominal Exam Abdominal: Present normoactive bowel sounds and surgical scars (Her incision is healing well.) Results Data Completed and Pending Labs on day of discharge: Labs from last 24 hours 11/24/23 11/23/23 05:48 16:07 Hgb 10.2 L D 12.1 L Hct 30.2 L 36.9 L DS: Diagnosis Discharge Diagnosis (1) IUGR, : Status: Acute Code(s): O36.5990 - Maternal care for other known or suspected poor growth, unspecified trimester, not applicable or unspecified (2) Previous section complicating : Status: Resolved Code(s): O34.219 - Maternal care for unspecified type scar from previous delivery (3) Delivery by section of full-term infant: Status: Resolved Code(s): O82 - Encounter for delivery without indication (4) Uterine atony, , without hemorrhage: Status: Acute Code(s): O75.89 - Other specified complications of labor and delivery Meds Home Medications and Allergies Home Medications Medication Instructions Recorded Confirmed Type vits no.126-ferrous fum 1 tab PO DAILY 05/02/23 11/23/23 History 28 mg iron-folic acid 800 mcg tablet (Classic ) ferrous sulfate 325 mg (65 mg 325 mg PO DAILY #30 tabs 07/26/23 11/23/23 Rx iron) tablet famotidine 20 mg tablet (Pepcid) 20 mg PO DAILY #30 tabs 09/13/23 11/23/23 Rx oxycodone-acetaminophen 5 mg-325 1 tab PO Q6H PRN pain #14 tabs 11/24/23 Rx mg tablet New Prescriptions to Start Prescriptions: oxycodone-acetaminophen Wilbert Armas Allergies Allergy/AdvReac Type Severity Reaction Status Date / Time sulfamethoxazole AdvReac Mild Hives Verified 11/23/23 05:11 [From Bactrim] trimethoprim [From Bactrim] AdvReac Mild Hives Verified 11/23/23 05:11 Discharge Plan Disposition Patient Disposition: Home, Self-Care Discharge Order Discharge Orders: Discharge Order (Routine); Ordered 11/25/23 Ordered By: Wilbert Armas Follow up Plan Prescriptions/Medication Reconciliation: New oxycodone-acetaminophen 5-325 mg tablet 1 tab PO Q6H PRN (Reason: pain) Qty: 14 0RF Continued Classic 28 mg iron- 800 mcg tablet 1 tab PO DAILY ferrous sulfate 325 mg (65 mg iron) tablet 325 mg PO DAILY Qty: 30 11RF famotidine [Pepcid] 20 mg tablet 20 mg PO DAILY Qty: 30 2RF Problem Reconciliation Problems Reviewed?: Yes Patient Discharge Instructions ACTIVITY: No heavy lifting DIET: continue same diet Providers Primary Care Provider: Preethi Avilez Admit Provider: Wilbert Armas Attending Provider: Wilbert Armas
[2023-11-25] MEDS: IBUPROFEN 400 MG TABLET 800 MG PO (07:49)
[2023-11-25] MEDS: ACETAMINOPHEN 500MG TAB 1000 MG PO (07:50)
== END 2023-11-25 09:55 | disposition home or self-care (01) | DRG 788 ==
PROVIDERS: Admitting Provider Nurse Practitioner Obstetrics & Gynecology; PCP Nurse Practitioner Family; Visit Provider Nurse Practitioner Obstetrics & Gynecology
PROC: 10D00Z1 Extraction of Products of Conception, Low, Open Approach (ICD-10-PCS; CPT 59514; principal; 2023-11-23 07:30)
DX: O36.5930 Maternal care for other known or suspected poor fetal growth, third trimester, not applicable or unspecified (principal); Z3A.38 38 weeks gestation of pregnancy; Z37.0 Single live birth; O34.211 Maternal care for low transverse scar from previous cesarean delivery; N85.8 Other specified noninflammatory disorders of uterus; O69.81X0 Labor and delivery complicated by cord around neck, without compression, not applicable or unspecified; O75.89 Other specified complications of labor and delivery
CPT/HCPCS: 59514; 36415; 59025; 80048; 80307; 81001; 85014; 85018; 85025; 86850; 94761; G0283; J2405; J7120

== ENCOUNTER 2025-05-13 14:54 | Outpatient (CLI) | payer BC, SELFPAY ==
[2025-05-13 14:39] LABS: Microscopic, Urine URINE MICROSCOPIC (MICROSCOPIC)
[2025-05-13 20:15] LABS: Bacteria,Urine 1+ /lpf; Bilirubin,Urine Negative (Negative); Color,Urine YELLOW (Yellow); Glucose,Urine (UA) Negative (Negative); Ketones,Urine Negative (Negative); Leukocyte Esterase,Urine Negative (Negative); PH,Urine 5.5 (5.0-8.5); Protein,Urine Negative (Negative); Specific Gravity, Urine 1.031 (1.005-1.030); Urobilinogen,Urine 0.2 EU/dl (0.2)
--- OUTSIDE RECORDS SUMMARY | 2025-05-13 22:36 | XMS_ITS | Continuity of Care Document ---
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 Plan of Treatment Reminders Order Date Submit Date Provider Last Modified By Organization Details Last Modified Time Details Appointments None recorded. Lab None recorded. Referral None recorded. Procedures None recorded. Surgeries None recorded. Imaging None recorded. Medication Orders ceftriaxone 1 gram solution for injection [id number] [facility] [address] [facility], [address] [place], [address], 15:54:17 ketorolac 60 mg/2 mL intramuscul ar solution [address] [facility], [address] [place], [address], 15:54:17 Patient TargetsNo targets recorded. Patient InstructionsNo instructions recorded. Reason for Referral None Reported. Results Created Date Observation Date Name Description Value Unit Range Abnormal Flag Note LastModifiedBy Organization Detail LastModifiedTime 04/08/2004/09/2025 CBC WITH DIFFE RENTI AL/PL ATELE T WBC 11.0 x10e3 /uL 3.4-10 .8 above high normal Not Available [facility] ([facility]) [address] [facility], [place], [address], 04/09/2025 10:08:11 04/08/2004/09/2025 CBC WITH DIFFE RENTI AL/PL ATELE T RBC 4.97 x10e6 /uL 3.77-5 .28 normal Not Available [facility] ([facility]) [address] [place], [address], 04/09/2025 10:08:11 04/08/2004/09/2025 CBC WITH DIFFE RENTI AL/PL ATELE T hemoglobin 14.8 g/dL 11.1-1 5.9 normal Not Available [facility] ([facility]) [address] [place], [address], 04/09/2025 10:08:11 04/08/2004/09/2025 CBC WITH DIFFE RENTI AL/PL ATELE T hematocrit 46.7 % 34.0-4 6.6 above high normal Not Available [facility] ([facility]) [address] [place], [address], 04/09/2025 10:08:11 04/08/2004/09/2025 CBC WITH DIFFE RENTI AL/PL ATELE T MCV 94 fL 79-97 normal Not Available [facility] ([facility]) [address] [place], [address], 04/09/2025 10:08:11 04/08/2004/09/2025 CBC WITH DIFFE RENTI AL/PL ATELE T MCH 29.8 pg 26.6-3 3.0 normal Not Available [facility] ([facility]) [address] [place], [address], 04/09/2025 10:08:11 04/08/2004/09/2025 CBC WITH DIFFE RENTI AL/PL ATELE T MCHC 31.7 g/dL 31.5-3 5.7 normal Not Available [facility] ([facility]) [address] [place], [address], 04/09/2025 10:08:11 04/08/2004/09/2025 CBC WITH DIFFE RENTI AL/PL ATELE T RDW 12.3 % 11.7-1 5.4 Not Available [facility] ([facility]) [address] [facility], [place], [address], 04/09/2025 10:08:11 04/08/2004/09/2025 CBC WITH DIFFE RENTI AL/PL ATELE T platelets 375 x10e3 /uL 150-45 0 normal Not Available [facility] ([facility]) [address] [facility], [place], [address], 04/09/2025 10:08:11 04/08/2004/09/2025 CBC WITH DIFFE RENTI AL/PL ATELE T neutrophils 67 % not estab. normal Not Available [facility] ([facility]) [address] [facility], [place], [address], 04/09/2025 10:08:11 04/08/2004/09/2025 CBC WITH DIFFE RENTI AL/PL ATELE T lymphs 21 % not estab. normal Not Available [facility] ([facility]) [address] [facility], [place], [address], 04/09/2025 10:08:11 04/08/2004/09/2025 CBC WITH DIFFE RENTI AL/PL ATELE T monocytes 6 % not estab. normal Not Available [facility] ([facility]) [address] [facility], [place], [address], 04/09/2025 10:08:11 04/08/2004/09/2025 CBC WITH DIFFE RENTI AL/PL ATELE T eos 5 % not estab. normal Not Available [facility] ([facility]) [address] [facility], [place], [address], 04/09/2025 10:08:11 04/08/2004/09/2025 CBC WITH DIFFE RENTI AL/PL ATELE T basos 1 % not estab. normal Not Available [facility] ([facility]) [address] [place], [address], 04/09/2025 10:08:11 04/08/2004/09/2025 CBC WITH DIFFE RENTI AL/PL ATELE T immature cells [employer] Not Available [facility] ([facility]) [address] [place], [address], 04/09/2025 10:08:11 04/08/2004/09/2025 CBC WITH DIFFE RENTI AL/PL ATELE T neutrophils (absolute) 7.4 x10e3 /uL 1.4-7. 0 above high normal Not Available [facility] ([facility]) [address] [facility], [place], [address], 04/09/2025 10:08:11 04/08/20 25 04/09/2025 CBC WITH DIFFE RENTI AL/PL ATELE T lymphs (absolute) 2.3 x10e3 /uL 0.7-3. 1 normal Not Available [facility] ([facility]) [address] [place], [address], 04/09/2025 10:08:11 04/08/20 25 04/09/2025 CBC WITH DIFFE RENTI AL/PL ATELE T monocytes(ab solute) 0.7 x10e3 /uL 0.1-0. 9 normal Not Available [facility] ([facility]) [address] [place], [address], 04/09/2025 10:08:11 04/08/2004/09/2025 CBC WITH DIFFE RENTI AL/PL ATELE T eos (absolute) 0.5 x10e3 /uL 0.0-0. 4 above high normal Not Available [facility] ([facility]) [address] [facility], [place], [address], 04/09/2025 10:08:11 04/08/20 25 04/09/2025 CBC WITH DIFFE RENTI AL/PL ATELE T baso (absolute) 0.1 x10e3 /uL 0.0-0. 2 normal Not Available [facility] ([facility]) [address] [facility], [place], [address], 04/09/2025 10:08:11 04/08/20 25 04/09/2025 CBC WITH DIFFE RENTI AL/PL ATELE T immature granulocytes 0 % not estab. Not Available [facility] ([facility]) [address] [facility], [place], [address], 04/09/2025 10:08:11 04/08/2004/09/2025 CBC WITH DIFFE RENTI AL/PL ATELE T immature grans (abs) 0.0 x10e3 /uL 0.0-0. 1 Not Available [facility] ([facility]) [address] [facility], [place], [address], 04/09/2025 10:08:11 04/08/20 25 04/09/2025 CBC WITH DIFFE RENTI AL/PL ATELE T NRBC [employer] Not Available [facility] ([facility]) [address] [facility], [place], [address], 04/09/2025 10:08:11 04/08/20 25 04/09/2025 CBC WITH DIFFE RENTI AL/PL ATELE T hematology comments: [employer] Not Available [facility] ([facility]) [address] [facility], [place], [address], 04/09/2025 10:08:11 04/08/20 25 04/09/2025 COMP. METAB OLIC PANEL (14) glucose 76 mg/dL 70-99 normal Not Available [facility] ([facility]) [address] [facility], [place], [address], 04/09/2025 10:08:12 04/08/20 25 04/09/2025 COMP. METAB OLIC PANEL (14) BUN 12 mg/dL 6-20 normal Not Available [facility] ([facility]) [address] [facility] [place], [address], 04/09/2025 10:08:12 04/08/20 25 04/09/2025 COMP. METAB OLIC PANEL (14) creatinine 0.74 mg/dL 0.57-1 .00 normal Not Available [facility] ([facility]) [address] [facility] [place], [address], 04/09/2025 10:08:12 04/08/20 25 04/09/2025 COMP. METAB OLIC PANEL (14) eGFR 115 mL/mi n/1.7 3 >59 normal Not Available [facility] ([facility]) [address] [facility], [place], [address], 04/09/2025 10:08:12 04/08/20 25 04/09/2025 COMP. METAB OLIC PANEL (14) BUN/creatini ne ratio 16 9-23 normal Not Available [facility] ([facility]) [address] [facility], [place], [address], 04/09/2025 10:08:12 04/08/20 25 04/09/2025 COMP. METAB OLIC PANEL (14) sodium 138 mmol/ L 134-14 4 normal Not Available [facility] ([facility]) [address] [place], [address], 04/09/2025 10:08:12 04/08/20 25 04/09/2025 COMP. METAB OLIC PANEL (14) potassium 4.2 mmol/ L 3.5-5. 2 normal Not Available [facility] ([facility]) [address] [place], [address], 04/09/2025 10:08:12 04/08/20 25 04/09/2025 COMP. METAB OLIC PANEL (14) chloride 100 mmol/ L 96-106 normal Not Available [facility] ([facility]) [address] [place], [address], 04/09/2025 10:08:12 04/08/2004/09/2025 COMP. METAB OLIC PANEL (14) carbon dioxide, total 23 mmol/ L 20-29 normal Not Available [facility] ([facility]) [address] [facility] [place], [address], 04/09/2025 10:08:12 04/08/2004/09/2025 COMP. METAB OLIC PANEL (14) calcium 10.0 mg/dL 8.7-10 .2 normal Not Available [facility] ([facility]) [address] [facility] [place], [address], 04/09/2025 10:08:12 04/08/2004/09/2025 COMP. METAB OLIC PANEL (14) protein, total 7.9 g/dL 6.0-8. 5 normal Not Available [facility] ([facility]) [address] [facility] [place], [address], 04/09/2025 10:08:12 04/08/2004/09/2025 COMP. METAB OLIC PANEL (14) albumin 5.0 g/dL 4.0-5. 0 normal Not Available [facility] ([facility]) [address] [facility] [place], [address], 04/09/2025 10:08:12 04/08/2004/09/2025 COMP. METAB OLIC PANEL (14) globulin, total 2.9 g/dL 1.5-4. 5 Not Available [facility] ([facility]) [address] [facility] [place], [address], 04/09/2025 10:08:12 04/08/2004/09/2025 COMP. METAB OLIC PANEL (14) bilirubin, total 0.7 mg/dL 0.0-1. 2 normal Not Available [facility] ([facility]) [address] [facility], [place], [address], 04/09/2025 10:08:12 04/08/20 25 04/09/2025 COMP. METAB OLIC PANEL (14) alkaline phosphatase 89 IU/L 41-116 normal Not Available [facility] ([facility]) [address] [facility], [place], [address], 04/09/2025 10:08:12 04/08/20 25 04/09/2025 COMP. METAB OLIC PANEL (14) AST (SGOT) 15 IU/L 0-40 normal Not Available [facility] ([facility]) [address] [facility] [place], [address], 04/09/2025 10:08:12 04/08/20 25 04/09/2025 COMP. METAB OLIC PANEL (14) ALT (SGPT) 13 IU/L 0-32 normal Not Available [facility] ([facility]) [address] [facility], [place], [address], 04/09/2025 10:08:12 04/08/20 25 04/09/2025 LIPID PANEL cholesterol, total 180 mg/dL 100-19 9 normal Not Available [facility] ([facility]) [address] [facility], [place], [address], 04/09/2025 10:08:13 04/08/20 25 04/09/2025 LIPID PANEL triglyceride s 82 mg/dL 0-149 normal Not Available [facility] ([facility]) [address] [facility], [place], [address], 04/09/2025 10:08:13 04/08/20 25 04/09/2025 LIPID PANEL HDL cholesterol 50 mg/dL >39 normal Not Available [facility] ([facility]) [address] [facility], [place], [address], 04/09/2025 10:08:13 04/08/20 25 04/09/2025 LIPID PANEL VLDL cholesterol eric 15 mg/dL 5-40 Not Available [facility] ([facility]) [address] [facility], [place], [address], 04/09/2025 10:08:13 04/08/2004/09/2025 LIPID PANEL LDL chol calc ([facility]) 115 mg/dL 0-99 above high normal Not Available [facility] ([facility]) [address] [facility], [place], [address], 04/09/2025 10:08:13 04/08/2004/09/2025 LIPID PANEL LDL calc comment: [employer] Not Available [facility] ([facility]) [address] [facility], [place], [address], 04/09/2025 10:08:13 04/08/2004/09/2025 VITAM IN B12 AND FOLAT E vitamin B12 588 pg/mL 232-12 45 normal Not Available [facility] ([facility]) [address] [facility], [place], [address], 04/09/2025 10:08:14 04/08/2004/09/2025 VITAM IN B12 AND FOLAT E folate (folic acid), serum 4.0 NG/mL >3.0 normal A serum folat e ludwin ntrat ion of less than 3.1 ng/mL is consi dered to repre sent clini eric defic iency . Not Available [facility] ([facility]) [address] [facility], [place], [address], 04/09/2025 10:08:14 04/08/2004/09/2025 HCV ANTIB NICHELLE CASCA DE(PC R/GEN O) HCV Ab Non Reacti ve non reacti ve Not Available [facility] ([facility]) [address] [facility], [place], [address], 04/09/2025 10:08:14 04/08/2004/09/2025 HCV ANTIB NICHELLE CASCA DE(PC R/GEN O) interpretati on: Commen t Not infec trish with HCV unles s early or acute infec tion is suspe cted (whic h may be delay ed in an immun ocomp romis ed indiv idual ), or other evide nce exist s to indic ate HCV infec tion. Not Available [facility] ([facility]) [address] [facility], [place], [address], 04/09/2025 10:08:14 04/08/2004/09/2025 TSH TSH 2.350 uIU/m L 0.450- 4.500 normal Not Available [facility] ([facility]) [address] [facility], [place], [address], 04/09/2025 10:08:15 04/08/2004/09/2025 VITAM IN D, 25-HY DROXY vitamin D, 25-hydroxy 19.9 NG/mL 30.0-1 00.0 below low normal Vitam in D defic iency has been defin ed by the Insti tute of Medic ine and an Endoc rine Socie ty pract ice guide line as a level of serum 25-OH vitam in D less than 20 ng/mL (1,2) . The Endoc rine Socie ty went on to furth er defin e vitam in D insuf ficie ncy as a level betwe en 21 and 29 ng/mL (2). 1. IOM (Inst itute of Medic ine). 2009. Dieta ry refer ence linda es for calci um and D. Shanon concepcion [place]: The [facility] Press . 2. Sánchez topete [place], Nakia youssef [place], Chris off-F errar i WRIGHT, et al. Evalu ation , treat ment, and preve ntion of vitam in D defic iency : an Endoc rine Socie ty clini eric pract ice guide line. JCEM. 2010; 96(7) :1911 -30. Not Available [facility] ([facility]) [address] [facility], [place], [address], 04/09/2025 10:08:16 04/08/20 25 04/09/2025 HIV AB/P2 4 AG WITH REFLE X HIV Ab/P24 Ag screen Non Reacti ve non reacti ve HIV-1 /HIV- 2 antib odies and HIV-1 p24 antig en were NOT detec trish. There is no labor atory evide nce of HIV infec tion. HIV Negat nancy Not Available [facility] ([facility]) [address] [facility], [place], [address], 04/09/2025 10:08:16 04/22/2004/25/2025 URINE CULTU RE, ROUTI NE urine culture, routine Final report abnormal Not Available [facility] ([facility]) [address] [facility], [place], [address], 04/25/2025 15:08:27 04/22/2004/25/2025 URINE CULTU RE, ROUTI NE result 1 Escher ichia coli abnormal Cefaz fausto with an DEZ <=16 predi cts susce ptibi lity to the oral agent s cefac jacob, cefdi sanjiv, cefpo doxim e, cefpr ozil, cefur oxime , cepha lexin , and lorac arbef when used for thera py of uncom plica trish urina ry tract infec tions due to E. coli, Klebs iella pneum oniae , and Prote us mirab ilis. 25,00 0-50, 000 colon y formi ng units per mL Not Available [facility] ([facility]) [address] [facility], [place], [address], 04/25/2025 15:08:27 04/22/2004/25/2025 URINE CULTU RE, ROUTI NE result 2 Entero coccus faecal is abnormal Enter ococc i susce ptibl e to penic illin are predi ctabl y susce ptibl e to ampic illin , amoxi cilli n, ampic illin -sulb actam , amoxi cilli n-cla vulan ate, and piper acill in-ta zobac williamson for non-b eta-l actam ase produ cing enter ococc i. (CLSI 2018) For Enter ococc us speci es, amino glyco sides (exce pt for high- level resis tance roberto lancaster) , cepha lospo rins, clind amyci n, and trime thopr im-cerrato lfame thoxa zole are not effec tive clini audrey . (CLSI , M100- S26, 2016) Note: this isola te is vanco mycin -susc eptib le. This infor matio n is provi ded for epide miolo gic purpo ses only: vanco mycin is not among the antib iotic s recom damian d for thera py of urina ry tract infec tions cause d by Enter ococc us. 25,00 0-50, 000 colon y formi ng units per mL Not Available [facility] ([facility]) [address] [facility], [place], [address], 04/25/2025 15:08:27 04/22/2004/25/2025 URINE CULTU RE, ROUTI NE antimicrobia l susceptibili ty Commen t S = Susce ptibl e; I = Inter media te; R = Resis tant P = Posit nancy; N = Negat nancy MICS are expre ssed in micro grams per mL Antib iotic RSLT# 1 RSLT# 2 RSLT# 3 RSLT# 4 Amoxi cilli n/Cla vulan ic Acid S Ampic illin S Cefaz fausto S Cefep ladi S Cefox itin S Cefpo doxim e S Ceftr iaxon e S Cipro floxa benjamín S S Ertap enem S Genta micin S Levof loxac in S S Merop enem S Nitro furan toin S S Penic illin S Piper acill in/Ta zobac williamson S Tetra cycli ne R R Tobra mycin S Trime thopr im/Cerrato lfa R Vanco mycin S Not Available [facility] ([facility]) [address] [facility], [place], [address], 04/25/2025 15:08:27 04/22/2004/22/2025 urina lysis , dipst ick Leukocytes Small Not Available [facility] [address] [place] [address], [place], [address], 04/22/2025 12:13:25 04/22/2004/22/2025 urina lysis , dipst ick Nitrite negati ve Not Available [address], [place], [address], 04/22/2025 12:13:25 04/22/2004/22/2025 urina lysis , dipst ick Urobilinogen .2 Not Available [address], [place], [address], 04/22/2025 12:13:25 04/22/2004/22/2025 urina lysis , dipst ick Protein Negati ve Not Available [address], [place], [address], 04/22/2025 12:13:25 04/22/2004/22/2025 urina lysis , dipst ick pH 5.5 Not Available [address], [place], [address], 04/22/2025 12:13:25 04/22/2004/22/2025 urina lysis , dipst ick Blood Non-He molyze d: Trace Not Available [address], [address], 04/22/2025 12:13:25 04/22/2004/22/2025 urina lysis , dipst ick Specific [place] 1.025 Not Available [address], [address], 04/22/2025 12:13:25 04/22/2004/22/2025 urina lysis , dipst ick Ketone Negati ve Not Available [address], [place], [address], 04/22/2025 12:13:25 04/22/2004/22/2025 urina lysis , dipst ick Bilirubin Negati ve Not Available [address], [place], [address], 04/22/2025 12:13:25 04/22/2004/22/2025 urina lysis , dipst ick Glucose Negati ve Not Available [address], [address], 04/22/2025 12:13:25 04/22/2004/22/2025 urina lysis , dipst ick Appearance Clear Not Available [address], [place], [address], 04/22/2025 12:13:25 04/22/2004/22/2025 urina lysis , dipst ick Color Yellow Not Available [address], [address], 04/22/2025 12:13:25 04/08/2004/08/2025 rashel r monit or No observ ation record ed. [email or web address] [address], [address], 04/09/2025 14:22:06 04/18/2004/18/2025 rashel r monit or No observ ation record ed. [address], [address], 04/29/2025 09:39:33 Result Notes None recorded. Problems Name Problem SNOMED Code Status Onset Date Resolution Date Notes Provider Name and Address Organization Details Recorded Time Acute cystitis 18042194 Completed 201701/19/2018 Problem Code: N30.01; Problem Code Type: ICD-10; Not Available [facility] 21:33:35 Overweig ht in childo d [id number] Completed 201709/15/2021 Problem Code: Z68.53; Problem Code Type: ICD-10; Not Available [facility] 21:33:36 Acute cystitis 37558174 Completed 201702/10/2018 Problem Code: N30.01; Problem Code Type: ICD-10; Not Available [facility] 21:33:35 Acute vaginiti s 67595714 Completed 201703/28/2018 Problem Code: N76.0; Problem Code Type: ICD-10; Not Available [facility] 21:33:35 Vaginiti s and vulvovag initis Completed 201703/28/2018 Problem Code: 616.10; Problem Code Type: ICD-9; Not Available [facility] 21:33:37 Acute suppurat nancy otitis media [id number] Completed 201805/26/2022 DIONNE laboy, [employer] 09:11:53 Amenorrh ea 14653542 Completed 201805/26/2022 Problem Code: N91.2; Problem Code Type: ICD-10; DIONNE laboy [employer] 09:11:53 Pregnanc y detectio n examinat ion Completed 201809/15/2021 Problem Code: Z32.01; Problem Code Type: ICD-10; Not Available [facility] 21:33:36 Influenz a vaccine needed [id number] 06 Completed 201905/26/2022 Problem Code: Z23; Problem Code Type: ICD-10; DIONNE LAYNER null, [employer] 2 09:11:53 Urinary tract infectio us disease 33231400 Completed 202009/15/2021 Problem Code: N39.0; Problem Code Type: ICD-10; DIONNE LAYNER null, [employer] 2 09:11:53 Urinary tract infectio us disease 77361123 Completed 202105/26/2022 Problem Code: N39.0; Problem Code Type: ICD-10; DIONNE CAVAZOSNEAR null, [employer] 2 09:11:53 Dysuria 53049888 Completed 202105/26/2022 Problem Code: R30.0; Problem Code Type: ICD-10; MIRNA AMBRIZ NP [address] [place], [address] , [employer] 5 16:09:51 Abdomina l pain 34780785 Completed 202105/26/2022 Problem Code: R10.9; Problem Code Type: ICD-10; DIONNE LAYNER null, [employer] 2 09:11:53 Gallblad antione calculus with acute cholecys titis and no obstruct ion 625993262 Completed 202105/26/2022 Problem Code: K80.00; Problem Code Type: ICD-10; DIONNE LAYNER null, [employer] 2 09:11:53 Viral screenin g Completed 202105/26/2022 Problem Code: Z11.59; Problem Code Type: ICD-10; DIONNE CAVAZOSBRADLEYR null, [employer] 2 09:11:53 Dysuria 62485455 Active 2024 Problem Code: R30.0; Problem Code Type: ICD-10; MIRNA AMBRIZ NP [address] [place], [address] , [employer] 5 16:09:50 Acute urinary tract infectio n 879821160 Active 2024 MIRNA AMBRIZ NP [address] [place] [address], [address] [place] [address] , [employer] 5 16:10:04 Vitamin D deficien cy 44287468 Active 2024 ROCIO Yanez [address] [place] [address], [address] , [employer] 5 08:35:31 Recurren t urinary tract infectio n 795562241 Active 2024 MIRNA AMBRIZ NP [address] [place] [address], [address] [place] [address] , [employer] 5 16:09:33 Problem Notes None recorded. Procedures 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 Date Name Laterality Status Provider Name and Address Organization Details Recorded Time 07/12/19 21 section completed Not Available [facility] 11/2021 22:56:13 01/06/20 18 tonsillectomy and adenoidectomy completed Not Available [facility] 03/02/2022 22:56:14 01/06/20 18 hernia repair completed Not Available [facility] 2021 22:56:15 Gallbladder Surgery completed [email or web address] 04/08/2025 11:23:10 section completed [employer]. 04/08/2025 11:23:16 section completed [employer]. 04/08/2025 11:23:21 Imaging Results None recorded. Procedure Notes None recorded. Medical Equipment None Reported. Allergies Allergen ID Allergen Name Allergen Category Reaction Reaction Severity Criticality Documentation Date Start Date Code Code System Note Provider Name and Address Organization Details Recorded Time 09859 Substance with sulfonami de structure and antibacte rial mechanism of action (substanc e) medicatio n Not available Not available Not available 03/02/2022 18027 8003 SNOMED CHAUNCEY laboy, [employer] 2 09:20:29 Medications Name Sig Start Date Stop Date Status Note LastModified by Organization Details LastModified Time amoxicillin 500 mg capsule take 1 capsule (500 mg) by oral route 2 times per day x10 days 07/10 completed Not Available Not Available Not Available ketoconazol e 2 % shampoo APPLY TO THE AFFECTED AREA(S), LATHER, LEAVE IN PLACE FOR 5 MINUTES, AND THEN RINSE OFF WITH WATER BY TOPICAL ROUTE TWICE WEEKLY 07/10 completed Not Available Not Available Not Available ibuprofen 800 mg tablet Take 1 tablet 3 times a day by oral route as needed. 07/10 completed Not Available Not Available Not Available hydrocodone 5 mg-acetamin ophen 325 mg tablet TAKE 1 TABLET BY MOUTH EVERY 8 HOURS NEEDED FOR MODERATE PAIN 05/26 completed Not Available Not Available Not Available meloxicam 15 mg tablet 07/10 completed Not Available Not Available Not Available prednisone 20 mg tablet Take 1 tablet 3 times a day by oral route for 3 days. 07/10 completed Not Available Not Available Not Available ciprofloxac in 500 mg tablet take 1 tablet (500 mg) by oral route every 12 hours for 10 days 12/02 completed Not Available Not Available Not Available meloxicam 7.5 mg tablet TAKE ONE TABLET BY MOUTH DAILY NEEDED FOR COCCYX pain 04/08 completed Not Available Not Available Not Available oxycodone-a cetaminophe n 5 mg-325 mg tablet TAKE ONE TABLET BY MOUTH EVERY 6 HOURS NEEDED FOR PAIN MAY CAUSE DROWSINES S 07/10 completed Not Available Not Available Not Available ceftriaxone 1 gram solution for injection Take 1 g by injection route. 2024 active Not Available Not Available Not Avai lable ofloxacin 0.3 % ear drops INSTILL 5 DROPS INTO EACH AFFECTED EAR TWICE DAILY FOR 5 DAYS 08/03 completed Not Available Not Available Not Available Metrogel Vaginal 0.75 % (37.5 mg/5 gram) Insert 1 applicato rful(s) in vagina bid for 5 days 03/03 completed Not Available Not Available Not Available famotidine 20 mg tablet 07/10 completed Not Available Not Available Not Available phenazopyri dine 100 mg tablet TAKE 1 TABLET BY MOUTH THREE TIMES DAILY FOR 3 DAYS 05/26 completed Not Available Not Available Not Available cephalexin 500 mg tablet take 1 tablet (500 mg) by oral route 2 times per day 09/15 completed Not Available Not Available Not Available amoxicillin 400 mg/5 mL oral suspension 07/10 completed Not Available Not Available Not Available ergocalcife rol (vitamin D2) 1,250 mcg (50,000 unit) capsule TAKE 1 CAPSULE BY MOUTH ONCE A WEEK active Not Available Not Available No t Available docusate sodium 250 mg capsule TAKE 1 CAPSULE BY MOUTH TWICE DAILY 07/10 completed Not Available Not Available Not Available ketorolac 60 mg/2 mL intramuscul ar solution Inject 1 mL by intramusc ular route. 2024 active Not Available Not Available Not Avai lable bromphenira mine-pseudo ephedrine-D M 2 mg-30 mg-10 mg/5 mL oral syrup TAKE 10 ML BY MOUTH EVERY 8 HOURS NEEDED FOR COLD SYMPTOMS FOR 10 DAYS 07/10 completed Not Available Not Available Not Available ondansetron 4 mg disintegrat ing tablet DISSOLVE 1 TABLET IN MOUTH EVERY 8 HOURS FOR 3 DAYS 07/10 completed Not Available Not Available Not Available clotrimazol e 1 % topical cream 07/10 completed Not Available Not Available Not Available amoxicillin 500 mg-potassiu m clavulanate 125 mg tablet 07/10 completed Not Available Not Available Not Available Bactrim DS 800 mg-160 mg tablet Take 1 tablet(s) by mouth q12h for 5 days 01/27 completed Not Available Not Available Not Available nitrofurant oin monohydrate /macrocryst als 100 mg capsule TAKE 1 CAPSULE BY MOUTH TWICE DAILY FOR 5 DAYS active Not Available Not Available No t Available Take once daily 04/23 completed Not Available Not Available Not Available AZO Standard Maximum Strength 97.5 mg tablet Take 1 tablet(s) by mouth qd 03/28 completed Not Available Not Available Not Available cholecalcif belia (vitamin D3) 50 mcg (2,000 unit) tablet TAKE 1 TABLET BY MOUTH ONCE DAILY active Not Available Not Available No t Available 28 mg-800 mcg tablet Take 1 tab by mouth once daily. 07/12 completed Not Available Not Available Not Available Vitals Date Recorded Body height Body mass index (BMI) Body weight Oxygen saturation Oxygen saturation in Arterial blood by Pulse oximetry Heart rate Body temperature Systolic And Diastolic Provider Name and Address Organization Details Last Updated DateTime 170.18 cm 26.7 kg/m2 01775.8 6 g 95 % 95 % 60 /min 98.1 [degF] 128/84 mm[Hg] Clarissa Samuel [employer]. 14:26:31 Social History Question Answer Notes LastModified by [employer] Details LastModified Time Tobacco Smoking Status Never Smoker CHAUNCEY JENSENNIC laboy, [employer]. 04/23/2022 09:21:43 Do You Have An Advance Directive? No Information n ot available 04/23/2022 Is Your Home Air Conditioned? Yes Information not available 04/23/2022 Are You Blind Or Do You Have Difficulty Seeing? No Information n ot available 04/23/2022 What Is Your Level Of Caffeine Consumption? Occasional Information not available 04/23/2022 Are You A Caregiver? No Information not available 04/23/2022 In The 14 Days Before Symptom Onset, Have You Had Close Contact With A Laboratory-confirm ed COVID-19 While That Case Was Ill? No Information n ot available 07/10/2024 In The 14 Days Before Symptom Onset, Have You Had Close Contact With A Person Who Is Under Investigation For COVID-19 While That Person Was Ill? No Information not available 07/10/2024 Have You Been To An Area Known To Be High Risk For COVID-19? No Information not available 07/10/2024 Are You Deaf Or Do You Have Serious Difficulty Hearing? No Information not available 04/23/2022 What Type Of Diet Are You Following? REGULAR Information n ot available 07/10/2024 Have There Been Any Changes To Your Family Or Social Situation? No Information no t available 04/23/2022 Are There Any Guns Present In Your Home? No Information not available 04/08/2025 Which Of Your Hands Is Dominant? Right Information n ot available 04/08/2025 Do You Have A Medical Power Of Freight Dispatcher? No Information not available 04/23/2022 What Was The Date Of Your Most Recent Tobacco Screening? 04/23/2025 Information not available 04/23/2025 Do You Have Any Pets? No Information not available 04/08/2025 What Is Your Relationship Status? Information not available 04/08/2025 Do You Wear A Seatbelt When Driving Or As A Passenger? Yes Information not available 04/08/2025 Do You Use Your Seat Belt Or Car Seat Routinely? Yes Information not available 07/10/2024 Are You Sexually Active? Yes Information not available 04/08/2025 Do You Have Smoke And Carbon Monoxide Detectors In Your Home? Yes Information not available 04/23/2022 Are You Passively Exposed To Smoke? No Information no t available 04/23/2022 Are There Any Smokers In Your House? No Information not available 04/23/2022 Has Tobacco Cessation Counseling Been Provided? No Information not available 04/23/2022 Have You Recently Traveled Abroad? No Information not available 07/10/2024 Do You Have Difficulty Walking Or Climbing Stairs? No Information not available 04/23/2022 Are You Currently In School? No Information not available 04/23/2022 What Contraceptive Method Was Reported At Start Of This Visit? None Information not available 04/08/2025 Do You Feel Safe In Your Home? Yes Information not available 04/08/2025 Do You Have Any Dietary Restrictions? No Information not available 07/10/2024 What Is Your Reason For Having No Contraceptive Method At Start Of This Visit? Other Information not available 04/08/2025 Sex: Unknown Functional Status Question Answer Note LastModified by Organizat ion Details LastModified Time Do you use any illicit or recreational drugs? No Information not available 04/23/2022 Do you or have you ever used any other forms of tobacco or nicotine? No Information not available 04/23/2022 What is your level of alcohol consumption? None Information not available 04/23/2022 Are you currently employed? Yes Information not available 04/23/2022 Do you have transportation difficulties? No Information not available 04/23/2022 Are you able to walk independently without assistance or assistive devices? YESWOREST Information not available 04/23/2022 Do you have difficulty doing errands alone? No Information not available 04/23/2022 Are you able to care for yourself independently? Yes Information not available 04/23/2022 Do you have difficulty dressing, bathing, grooming, or toileting? No Information not available 04/23/2022 Mental Status Question Answer Note LastModified by Organizat ion Details LastModified Time Do you feel stressed (tense, restless, nervous, or anxious, or unable to sleep at night)? [id number] Information not available 04/08/2025 Do you have difficulty concentrating, remembering or making decisions? No Information no t available 04/23/2022 Family History Relationship Description Onset Age of this Age Resolved Age Notes LastModified by Organization Details LastModified Time Unspecified Relation Family history of Hypertension Relati ve: ''; [email or web address] Not available 03/02/2022 23:01:10 Unspecified Relation Family history of hyperlipidem ia Relati ve: ''; [email or web address] Not available 03/02/2022 23:01:12 Medical History Condition Response Coronary Artery Disease N Other N Gout N Kidney Stones N Blood Diseases N Hyperthyroidism N Breast Cancer N Blood Transfusion N Emergency room visit since last appointm ent. N Hypothyroidism N Lung Disease N COPD N Dermatologic Disorders N Depression N Defects or Inherited Disease N Developmental or Behavioral Disorders N Breast Problem N Difficulty Swallowing N Anesthesia Complications N History of STI N Meniere's disease N Anxiety Disorder N Muscle, Joint, or Bone Problems N Autoimmune disease N Vision or Eye Problems N Arthritis N Polyps N Infertility N Mental Disorder N Congenital Anomalies N Acid Reflux (GERD) N Cancer N Stroke N Neurologic/Epilepsy N Endometriosis N Bladder or Kidney Problems N High Cholesterol N Liver Disease N Psychiatric/Mental Health Condition N Organ Transplant N Dialysis N Fibromyalgia N Schizophrenia N Headaches N Kidney Disease N Allergies/Hayfever N Heart Problems N Ear or Hearing Problems N Hospitalizations N Learning Disorder N Artificial Joints N Thyroid Problems N GI Problems N Acne N ADD/ADHD N Eating Disorder N Anemia N Constipation N Mental Illness N Ovarian Cancer N Diabetes N Bedwetting N Hepatitis/Liver Disease N Tuberculosis N Eczema N Diverticulitis N Abuse/Domestic Violence N Asthma N Trauma/Violence N Substance Abuse N Amnesia/Cognitive Decline N Reflux/GERD N Depression/ depression N Hepatitis N Heart Disease N Pulmonary Embolism N Tourette Syndrome N Pre-Eclampsia N Hypertension N Chronic Ear Infections N Osteoporosis N Chicken Pox N Autism Spectrum Disorder (ASD) N Thrombophilias N Gynecological History Statement/Question Response Flow Moderate Date of LMP 03/16/2025 Menses Monthly Y Date of Last Pap Smear Current Control Method None Most Recent Mammogram LMP Approximate Obstetrics History GPAL:G 4 P 3 0 1 3 Type Value Multiple Births 0 Full Term 3 Induced 0 Spontaneous 1 Premature 0 Living 3 Ectopics 0 Total 4 Immunizations Vaccine Type Date Status Note Provider Nam e and Address Organization Details Recorded Time MMR 1 completed Not Available [facility] 03/03/2022 00:01:09 IPV 4 completed Not Available [facility] 03/03/2022 00:01:09 IPV 1 completed Not Available [facility] 03/03/2022 00:01:10 Tdap 0 completed Not Available [facility] 03/03/2022 00:01:10 pneumococcal conjugate PCV 7 1 completed Not Available [facility] 03/03/2022 00:01:10 varicella 1 completed Not Available [facility] 03/03/2022 00:01:10 HPV, quadrivalent 7 completed Lian laboy, [employer] 02/13/2025 16:05:38 Hib-Hep B 1 completed Not Available [facility] 03/03/2022 00:01:10 MMR 4 completed Not Available [facility] 03/03/2022 00:01:10 HPV9 8 completed Lian laboy, [employer] 02/13/2025 16:05:38 DTaP, unspecified formulation 4 completed Lian laboy [place] [facility] 02/13/2025 16:05:38 DTaP, unspecified formulation 1 completed Lian laboy [facility] 02/13/2025 16:05:38 Past Encounters Encounter ID Performer Location Encounter Start Date Encounter Closed Date Diagnosis/Indication Diagnosis SNOMED-CT Code Diagnosis ICD10 Code Diagnosis IMO Codes Diagnosis Note [id number] ROCIO Yanez [address] [address] 04/08/2025 11:15:59 04/08/2025 11:59:54 Fatigue 20083750 R53.83 [id number] HIV screening 050015083 Z11.4 301650 Viral scre ening status 582124465 Z11.59 011325 Palpitations 24627074 R0 0.2 00167 [id number] MIRNA AMBRIZ NP [address] [address] 04/22/2025 12:10:51 04/22/2025 13:45:00 Dysuria 45901776 R30.0 34236 Encourage increase in fluids. OTC urinary products such as AZO can help with symptoms.T ylenol/ibu profen per package instructio ns for pain. [id number] ROCIO Yanez [address] [address] 04/23/2025 14:16:23 04/23/2025 14:44:18 Acute urinary tract infection 884504360 N39.0 717865 Health Concerns Section Related Observation LastModified by Organization Detai ls LastModified Time None Recorded Concern Status LastModified by Organization Details LastModified Time None Recorded Payers Encounter Date Sequence Insurance Name Policy Number Policy Martinez Covered Member ID Martinez Member ID Guarantor Name 04/23/2025 1 ECTOR-DEJON: ABNER BAR[employer] OF [place] [id number] [facility] [id number] Notes Date Note Type Note Provider Name and Address Organization Details Recorded Time 04/23/2025 text/html ROS as noted in the HPI Patient diagnosed with UTI yesterday. Given RX for Macrobid but unfortunately it is in her 's car in [place] so she didn't get to take it yet. C/O pain, dysuria. No fever. ROCIO Yanez [address] [place] [address], [place], [address], [facility] [employer] 04/23/2025 15:55:06 OBGyn Episode No OBEpisode recorded.
--- OUTSIDE RECORDS SUMMARY | 2025-05-13 22:36 | XMS_ITS | Continuity of Care Document ---
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 Plan of Treatment Reminders Order Date Submit Date Provider Last Modified By Organization Details Last Modified Time Details Appointments None recorded. Lab Hepatitis C IgG Ab, qual, serum 2024 025 [facility] [address] [place], [address], 10:08:14 HIV 1 + 2, meaningful use set 2024 025 [facility]), [address] [place] [address], [address], 10:08:16 lipid panel, serum 2024 025 [facility] [address] [place], [address], 5 10:08:13 CMP, serum or plasma 2024 025 [facility] [address] [place], [address], 5 10:08:12 CBC w/ auto diff 2024 025 [facility] [address] [place] [address], [address], 10:08:12 vitamin D, 25-hydroxy, total, serum 2024 025 BR[facility]OD [facility] [address] [place], [address], 10:08:16 TSH, ultra-sensi tive, serum 2024 025 [facility]WOOD [facility] [address] [place], [address], 10:08:15 cobalamin and folate panel, serum 2024 [facility]OD [facility] [address] [place], [address], 10:08:14 Referral None recorded. Procedures None recorded. Surgeries None recorded. Imaging holter monitor [address], [address] [facility], [place], [address], 12:39:14 Medication Orders None recorded. Patient TargetsNo targets recorded. Patient Instructions Encounter Date Encounter Id Patient Instructions Last Modified By Organization Details Last Modified Time 04/08/2025 [id number] palpitations: care instructions [email or web address] Not available 04/08/2025 12:17:42 HIV testing: car e instructions [email or web address] Not available 04/08/2025 12:17:42 Reason for Referral None Reported. Results Created Date Observation Date Name Description Value Unit Range Abnormal Flag Note LastModifiedBy Organization Detail LastModifiedTime 04/08/2004/09/2025 CBC WITH DIFFE RENTI AL/PL ATELE T WBC 11.0 x10e3 /uL 3.4-10 .8 above high normal Not Available [facility]) [address] [facility], [place], [address], 04/09/2025 10:08:11 04/08/2004/09/2025 CBC WITH DIFFE RENTI AL/PL ATELE T RBC 4.97 x10e6 /uL 3.77-5 .28 normal Not Available [facility] ([facility]) [address] [facility], [place], [address], 04/09/2025 10:08:11 04/08/2004/09/2025 CBC WITH DIFFE RENTI AL/PL ATELE T hemoglobin 14.8 g/dL 11.1-1 5.9 normal Not Available [facility] ([facility]) [address] [facility], [place], [address], 04/09/2025 10:08:11 04/08/2004/09/2025 CBC WITH DIFFE RENTI AL/PL ATELE T hematocrit 46.7 % 34.0-4 6.6 above high normal Not Available [facility] ([facility]) [address] [facility], [place], [address], 04/09/2025 10:08:11 04/08/2004/09/2025 CBC WITH DIFFE RENTI AL/PL ATELE T MCV 94 fL 79-97 normal Not Available [facility] ([facility]) [address] [place], [address], 04/09/2025 10:08:11 04/08/2004/09/2025 CBC WITH DIFFE RENTI AL/PL ATELE T MCH 29.8 pg 26.6-3 3.0 normal Not Available [facility] ([facility]) [address] [place], [address], 04/09/2025 10:08:11 04/08/2004/09/2025 CBC WITH DIFFE RENTI AL/PL ATELE T MCHC 31.7 g/dL 31.5-3 5.7 normal Not Available [facility] ([facility]) [address] [place], [address], 04/09/2025 10:08:11 04/08/2004/09/2025 CBC WITH DIFFE RENTI AL/PL ATELE T RDW 12.3 % 11.7-1 5.4 Not Available [facility] ([facility]) [address] [facility], [place], [address], 04/09/2025 10:08:11 04/08/2004/09/2025 CBC WITH DIFFE RENTI AL/PL ATELE T platelets 375 x10e3 /uL 150-45 0 normal Not Available [facility] ([facility]) [address] [facility], [place], [address], 04/09/2025 10:08:11 04/08/2004/09/2025 CBC WITH DIFFE RENTI AL/PL ATELE T neutrophils 67 % not estab. normal Not Available [facility] ([facility]) [address] [facility], [place], [address], 04/09/2025 10:08:11 04/08/2004/09/2025 CBC WITH DIFFE RENTI AL/PL ATELE T lymphs 21 % not estab. normal Not Available [facility] ([facility]) [address] [facility], [place], [address], 04/09/2025 10:08:11 04/08/2004/09/2025 CBC WITH DIFFE RENTI AL/PL ATELE T monocytes 6 % not estab. normal Not Available [facility] ([facility]) [address] [facility], [place], [address], 04/09/2025 10:08:11 04/08/2004/09/2025 CBC WITH DIFFE RENTI AL/PL ATELE T eos 5 % not estab. normal Not Available [facility] ([facility]) [address] [facility], [place], [address], 04/09/2025 10:08:11 04/08/2004/09/2025 CBC WITH DIFFE RENTI AL/PL ATELE T basos 1 % not estab. normal Not Available [facility] ([facility]) [address] [place], [address], 04/09/2025 10:08:11 04/08/2004/09/2025 CBC WITH DIFFE RENTI AL/PL ATELE T immature cells [employer] SUPER[employer]ENDENT Not Available [facility] ([facility]) [address] [place], [address], 04/09/2025 10:08:11 04/08/2004/09/2025 CBC WITH DIFFE RENTI AL/PL ATELE T neutrophils (absolute) 7.4 x10e3 /uL 1.4-7. 0 above high normal Not Available [facility] ([facility]) [address] [facility], [place], [address], 04/09/2025 10:08:11 04/08/20 25 04/09/2025 CBC WITH DIFFE RENTI AL/PL ATELE T lymphs (absolute) 2.3 x10e3 /uL 0.7-3. 1 normal Not Available [facility] ([facility]) [address] [place], [address], 04/09/2025 10:08:11 04/08/20 25 04/09/2025 CBC WITH DIFFE RENTI AL/PL ATELE T monocytes(ab solute) 0.7 x10e3 /uL 0.1-0. 9 normal Not Available [facility] ([facility]) [address] [place], [address], 04/09/2025 10:08:11 04/08/20 25 04/09/2025 CBC WITH DIFFE RENTI AL/PL ATELE T eos (absolute) 0.5 x10e3 /uL 0.0-0. 4 above high normal Not Available [facility] ([facility]) [address] [place], [address], 04/09/2025 10:08:11 10/13/04/09/2025 CBC WITH DIFFE RENTI AL/PL ATELE T baso (absolute) 0.1 x10e3 /uL 0.0-0. 2 normal Not Available [facility] ([facility]) [address] [facility], [place], [address], 04/09/2025 10:08:11 04/08/20 25 04/09/2025 CBC WITH DIFFE RENTI AL/PL ATELE T immature granulocytes 0 % not estab. Not Available [facility] ([facility]) [address] [facility], [place], [address], 04/09/2025 10:08:11 04/08/2004/09/2025 CBC WITH DIFFE RENTI AL/PL ATELE T immature grans (abs) 0.0 x10e3 /uL 0.0-0. 1 Not Available [facility] ([facility]) [address] [facility], [place], [address], 04/09/2025 10:08:11 04/08/20 25 04/09/2025 CBC WITH DIFFE RENTI AL/PL ATELE T NRBC [employer] Not Available [facility] ([facility]) [address] [facility], [place], [address], 04/09/2025 10:08:11 04/08/20 25 04/09/2025 CBC WITH DIFFE RENTI AL/PL ATELE T hematology comments: [employer]END[employer] Not Available [facility] ([facility]) [address] [facility], [place], [address], 04/09/2025 10:08:11 04/08/20 25 04/09/2025 COMP. METAB OLIC PANEL (14) glucose 76 mg/dL 70-99 normal Not Available [facility] ([facility]) [address] [place], [address], 04/09/2025 10:08:12 04/08/20 25 04/09/2025 COMP. METAB OLIC PANEL (14) BUN 12 mg/dL 6-20 normal Not Available [facility] ([facility]) [address] [facility] [place], [address], 04/09/2025 10:08:12 04/08/20 25 04/09/2025 COMP. METAB OLIC PANEL (14) creatinine 0.74 mg/dL 0.57-1 .00 normal Not Available [facility] ([facility]) [address] [facility] [place], [address], 04/09/2025 10:08:12 04/08/20 25 04/09/2025 COMP. METAB OLIC PANEL (14) eGFR 115 mL/mi n/1.7 3 >59 normal Not Available [facility] ([facility]) [address] [facility] [place], [address], 04/09/2025 10:08:12 04/08/20 25 04/09/2025 COMP. METAB OLIC PANEL (14) BUN/creatini ne ratio 16 9-23 normal Not Available [facility] ([facility]) [address] [facility] [place], [address], 04/09/2025 10:08:12 04/08/20 25 04/09/2025 COMP. METAB OLIC PANEL (14) sodium 138 mmol/ L 134-14 4 normal Not Available [facility] ([facility]) [address] [facility] [place], [address], 04/09/2025 10:08:12 04/08/20 25 04/09/2025 COMP. METAB OLIC PANEL (14) potassium 4.2 mmol/ L 3.5-5. 2 normal Not Available [facility] ([facility]) [address] [facility] [place], [address], 04/09/2025 10:08:12 04/08/20 25 04/09/2025 COMP. METAB OLIC PANEL (14) chloride 100 mmol/ L 96-106 normal Not Available [facility] ([facility]) [address] [facility] [place], [address], 04/09/2025 10:08:12 04/08/2004/09/2025 COMP. METAB OLIC PANEL (14) carbon dioxide, total 23 mmol/ L 20-29 normal Not Available [facility] ([facility]) [address] [place], [address], 04/09/2025 10:08:12 04/08/2004/09/2025 COMP. METAB OLIC PANEL (14) calcium 10.0 mg/dL 8.7-10 .2 normal Not Available [facility] ([facility]) [address] [place], [address], 04/09/2025 10:08:12 04/08/2004/09/2025 COMP. METAB OLIC PANEL (14) protein, total 7.9 g/dL 6.0-8. 5 normal Not Available [facility] ([facility]) [address] [place], [address], 04/09/2025 10:08:12 04/08/2004/09/2025 COMP. METAB OLIC PANEL (14) albumin 5.0 g/dL 4.0-5. 0 normal Not Available [facility] ([facility]) [address] [place], [address], 04/09/2025 10:08:12 04/08/2004/09/2025 COMP. METAB OLIC PANEL (14) globulin, total 2.9 g/dL 1.5-4. 5 Not Available [facility] ([facility]) [address] [facility] [place], [address], 04/09/2025 10:08:12 04/08/2004/09/2025 COMP. METAB OLIC PANEL (14) bilirubin, total 0.7 mg/dL 0.0-1. 2 normal Not Available [facility] ([facility]) [address] [place], [address], 04/09/2025 10:08:12 04/08/20 25 04/09/2025 COMP. METAB OLIC PANEL (14) alkaline phosphatase 89 IU/L 41-116 normal Not Available [facility] ([facility]) [address] [place], [address], 04/09/2025 10:08:12 04/08/20 25 04/09/2025 COMP. METAB OLIC PANEL (14) AST (SGOT) 15 IU/L 0-40 normal Not Available [facility] ([facility]) [address] [place], [address], 04/09/2025 10:08:12 04/08/20 25 04/09/2025 COMP. METAB OLIC PANEL (14) ALT (SGPT) 13 IU/L 0-32 normal Not Available [facility] ([facility]) [address] [place], [address], 04/09/2025 10:08:12 04/08/20 25 04/09/2025 LIPID PANEL cholesterol, total 180 mg/dL 100-19 9 normal Not Available [facility] ([facility]) [address] [place], [address], 04/09/2025 10:08:13 04/08/20 25 04/09/2025 LIPID PANEL triglyceride s 82 mg/dL 0-149 normal Not Available [facility] ([facility]) [address] [place], [address], 04/09/2025 10:08:13 04/08/20 25 04/09/2025 LIPID PANEL HDL cholesterol 50 mg/dL >39 normal Not Available [facility] ([facility]) [address] [place], [address], 04/09/2025 10:08:13 04/08/20 25 04/09/2025 LIPID PANEL VLDL cholesterol eric 15 mg/dL 5-40 Not Available [facility] ([facility]) [address] [facility], [place], [address], 04/09/2025 10:08:13 04/08/2004/09/2025 LIPID PANEL LDL chol calc ([facility]) 115 mg/dL 0-99 above high normal Not Available [facility] ([facility]) [address] [facility], [place], [address], 04/09/2025 10:08:13 04/08/2004/09/2025 LIPID PANEL LDL calc comment: [employer]END[employer] Not Available [facility] ([facility]) [address] [facility], [place], [address], 04/09/2025 10:08:13 04/08/2004/09/2025 VITAM IN B12 AND FOLAT E vitamin B12 588 pg/mL 232-12 45 normal Not Available [facility] ([facility]) [address] [facility], [place], [address], 04/09/2025 10:08:14 04/08/2004/09/2025 VITAM IN B12 AND FOLAT E folate (folic acid), serum 4.0 NG/mL >3.0 normal A serum folat e ludwin ntrat ion of less than 3.1 ng/mL is consi dered to repre sent clini eric defic iency . Not Available [facility] ([facility]) [address] [facility], [place], [address], 04/09/2025 10:08:14 04/08/2004/09/2025 HCV ANTIB NICHELLE CASCA DE(PC R/GEN O) HCV Ab Non Reacti ve non reacti ve Not Available [facility] ([facility]) [address] [facility], [place], [address], 04/09/2025 10:08:14 04/08/2004/09/2025 HCV ANTIB NICHELLE CASCA DE(PC R/GEN O) interpretati on: Commen t Not infec trish with HCV unles s early or acute infec tion is suspe cted (whic h may be delay ed in an immun ocomp romis ed indiv idual ), or other evide nce exist s to indic ate HCV infec tion. Not Available [facility] ([facility]) [address] [facility], [place], [address], 04/09/2025 10:08:14 04/08/2004/09/2025 TSH TSH 2.350 uIU/m L 0.450- 4.500 normal Not Available [facility] ([facility]) [address] [facility], [place], [address], 04/09/2025 10:08:15 04/08/2004/09/2025 VITAM IN D, 25-HY [...] IOM (Inst itute of Medic ine). 2009. Reuben ry refer ence intruthie es for calci um and D. Shanon concepcion [place]: The Natio nal [facility] Press . 2. Sánchez topete [place], Nakia youssef [place], Chris off-F errar i WRIGHT, et al. Evalu ation , treat ment, and preve ntion of vitam in D defic iency : an Endoc rine Socie ty clini eric pract ice guide line. JCEM. 2010; 96(7) :1911 -30. Not Available [facility] ([facility]) [address] [facility], [place], [address], 04/09/2025 10:08:16 04/08/202025 HIV AB/P2 4 AG WITH REFLE X HIV Ab/P24 Ag screen Non Reacti ve non reacti ve HIV-1 /HIV- 2 antib odies and HIV-1 p24 antig en were NOT detec trish. There is no labor atory evide nce of HIV infec tion. HIV Negat nancy Not Available [facility] ([facility]) [address] [facility], [place], [address], 04/09/2025 10:08:16 04/08/2004/08/2025 rashel r monit or No observ ation record ed. [facility] [address] [place], [address], 04/09/2025 14:22:06 04/18/20 25 04/18/2025 rashel r monit or No observ ation record ed. [facility] [address] [place], [address], 04/29/2025 09:39:33 Result Notes None recorded. Problems Name Problem SNOMED Code Status Onset Date Resolution Date Notes Provider Name and Address Organization Details Recorded Time Acute cystitis 22650801 Completed 201701/19/2018 Problem Code: N30.01; Problem Code Type: ICD-10; Not Available [facility] 21:33:35 [place] [facility] in [facility] d [id number] Completed 201709/15/2021 Problem Code: Z68.53; Problem Code Type: ICD-10; Not Available [facility] 21:33:36 Acute cystitis 74584866 Completed 201702/10/2018 Problem Code: N30.01; Problem Code Type: ICD-10; Not Available [facility] 21:33:35 Acute vaginiti s 08937319 Completed 201703/28/2018 Problem Code: N76.0; Problem Code Type: ICD-10; Not Available [facility] 09/05/202 2 21:33:35 Vaginiti s and vulvovag initis Completed 201703/28/2018 Problem Code: 616.10; Problem Code Type: ICD-9; Not Available [facility] 21:33:37 Acute suppurat nancy otitis media 249590160 Completed 201805/26/2022 DIONNE CAVAZOSZIYAD null, [employer] 09:11:53 Amenorrh ea 43256931 Completed 201805/26/2022 Problem Code: N91.2; Problem Code Type: ICD-10; DIONNE MYBRADLEYR null, [employer] 09:11:53 Pregnanc y detectio n examinat ion Completed 201809/15/2021 Problem Code: Z32.01; Problem Code Type: ICD-10; Not Available [facility] 21:33:36 Influenz a vaccine needed [id number] 06 Completed 201905/26/2022 Problem Code: Z23; Problem Code Type: ICD-10; DIONNE MACYZIYAD null, [employer] 2 09:11:53 Urinary tract infectio us disease 33637801 Completed 202009/15/2021 Problem Code: N39.0; Problem Code Type: ICD-10; DIONNE MYZIYAD null, [employer] 2 09:11:53 Urinary tract infectio us disease 44098351 Completed 202105/26/2022 Problem Code: N39.0; Problem Code Type: ICD-10; DIONNE MYBRADLEYR null, [employer] 09:11:53 Dysuria 20793948 Completed 202105/26/2022 Problem Code: R30.0; Problem Code Type: ICD-10; MIRNA AMBRIZ, [employer] [address] [place] [address], [phone] , [employer] 5 16:09:51 Abdomina l pain 77738766 Completed 202105/26/2022 Problem Code: R10.9; Problem Code Type: ICD-10; DIONNE laboy, [employer] 2 09:11:53 Gallblad antione calculus with acute cholecys titis and no obstruct ion 364020050 Completed 202105/26/2022 Problem Code: K80.00; Problem Code Type: ICD-10; DIONNE MINER null, [employer] 2 09:11:53 Viral screenin g Completed 202105/26/2022 Problem Code: Z11.59; Problem Code Type: ICD-10; DIONNE laboy, [employer] 2 09:11:53 Dysuria 10709767 Active 2024 Problem Code: R30.0; Problem Code Type: ICD-10; MIRNA AMBRIZ NP [address] [place] [address], [phone] , [employer] 5 16:09:50 Acute urinary tract infectio n 928026136 Active 2024 MIRNA AMBRIZ NP [address] [place] [address], [address] [place] [address] , [employer] 5 16:10:04 Vitamin D deficien cy 45627938 Active 2024 ROCIO Yanez [address] [place] [address], [phone] , [employer] 5 08:35:31 Recurren t urinary tract infectio n 196536202 Active 2024 MIRNA AMBRIZ NP [address] [place] [address], [phone] , [employer] 5 16:09:33 Problem Notes None recorded. Procedures 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 Date Name Laterality Status Provider Name and Address Organization Details Recorded Time 07/12/19 21 section completed Not Available [facility] 11/2021 22:56:13 01/06/20 18 tonsillectomy and adenoidectomy completed Not Available [facility] 03/02/2022 22:56:14 01/06/20 18 hernia repair completed Not Available [facility] 2021 22:56:15 Gallbladder Surgery completed [facility] 04/08/2025 11:23:10 section completed [employer] 04/08/2025 11:23:16 section completed [employer] 04/08/2025 11:23:21 Imaging Results None recorded. Procedure Notes None recorded. Medical Equipment None Reported. Allergies Allergen ID Allergen Name Allergen Category Reaction Reaction Severity Criticality Documentation Date Start Date Code Code System Note Provider Name and Address Organization Details Recorded Time 97607 Substance with sulfonami de structure and antibacte rial mechanism of action (substanc e) medicatio n Not available Not available Not available 03/02/2022 40107 8003 SNOMED CHAUNCEY VIEYRA [facility] 09:20:29 Medications Name Sig Start Date Stop [...] and Address Organization Details Last Updated DateTime 5 170.18 cm 26.3 kg/m2 22794.8 g 98 % 98 % 78 /min 98.1 [degF] 118/76 mm[Hg] Clarissa Samuel [employer]. 5 11:26:12 Social History Question Answer Notes LastModified by Organizat ion Details LastModified Time Tobacco Smoking Status Never Smoker CHAUNCEY laboy, [employer]. 04/23/2022 09:21:43 Do You Have An Advance [...] Do You Have A Medical Power Of Heel Breaster? No Information not available 04/23/2022 What Was [...] anxious, or unable to sleep at night)? [id number] Information not available 04/08/2025 Do you have [...] Stones N Blood Diseases N Hyperthyroidism N Blood Transfusion N Breast Cancer N Emergency room visit since last appointm ent. N COPD N Depression N Dermatologic Disorders N Hypothyroidism N Lung Disease N Developmental or Behavioral Disorders N Defects or Inherited Disease N Breast Problem N Difficulty Swallowing N [...] N High Cholesterol N Liver Disease N Organ Transplant N Psychiatric/Mental Health Condition N Fibromyalgia N Dialysis N Schizophrenia N Headaches N Kidney Disease [...] N Pulmonary Embolism N Tourette Syndrome N Chronic Ear Infections N Pre-Eclampsia N Hypertension N Chicken Pox N Autism Spectrum Disorder (ASD) N Osteoporosis N Thrombophilias N Gynecological History Statement/Question Response [...] Recorded Time MMR 1 completed Not Available [facility] 03/03/2022 00:01:09 IPV 4 completed Not Available [facility] 03/03/2022 00:01:09 IPV 1 completed Not Available [facility] 03/03/2022 00:01:10 Tdap 0 completed Not Available [facility] 03/03/2022 00:01:10 pneumococcal conjugate PCV 7 1 completed Not Available [facility] 03/03/2022 00:01:10 varicella 1 completed Not Available [facility] 03/03/2022 00:01:10 HPV, quadrivalent 7 completed Lian laboy, [employer]. 02/13/2025 16:05:38 Hib-Hep B 1 completed Not Available [facility] 03/03/2022 00:01:10 MMR 4 completed Not Available [facility] 03/03/2022 00:01:10 HPV9 8 completed Lian laboy, [employer] 02/13/2025 16:05:38 DTaP, unspecified formulation 4 completed Lian laboy, [employer] 02/13/2025 16:05:38 DTaP, unspecified formulation 1 completed Liangaby laboy, [employer]. 02/13/2025 16:05:38 Past Encounters Encounter ID Performer Location Encounter Start Date Encounter Closed Date Diagnosis/Indication Diagnosis SNOMED-CT Code Diagnosis ICD10 Code Diagnosis IMO Codes Diagnosis Note [id number] ROCIO Yanez [facility] [address] [place] [address] 04/08/2025 11:15:59 04/08/2025 11:59:54 Fatigue 21693051 R53.83 25111554 HIV screening 035291964 Z11.4 013169 Viral scre ening status 906152576 Z11.59 639387 Palpitations 99654870 R0 0.2 17790 Health Concerns Section Related Observation LastModified by Organization Detai ls LastModified Time None Recorded Concern Status LastModified by Organization Details LastModified Time None Recorded Payers Encounter Date Sequence Insurance Name Policy Number Policy Martinez Covered Member ID Martinez Member ID Guarantor Name 04/08/2025 1 [place] [id number] [facility] [id number] [facility] Notes Date Note Type Note Provider Name and Address Organization Details Recorded Time 04/08/2025 text/html ROS as noted in the HPI Patient c/o weakness, fatigue. Worse when she is on her period. Cold all the time, bruises easily. Gets short of breath climbing stairs. Has palpitations at times. Has had symptoms for a few years. Had ECHO, which was normal. Has not had labs recently. Has never had a holter monitor. Mom and grandma have Afib. ROCIO Yanez [address] [place] [address], [phone], [facility] [employer] 04/08/2025 15:01:58 OBGyn Episode No OBEpisode recorded.
--- OUTSIDE RECORDS SUMMARY | 2025-05-13 22:36 | XMS_ITS | Data Portability ---
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 Plan of Treatment Reminders Order Date Submit Date Provider Last Modified By Organization Details Last Modified Time Details Appointments None recorded. Lab culture, urine 2024 025 [facility] [address] [place], [address], 5 15:08:27 urinalysis, dipstick [email or web address], [address] [place] [address], [address], 13:18:09 Hepatitis C IgG Ab, qual, serum 2024 025 [facility] [address] [place] [address], [address], 5 10:08:14 HIV 1 + 2, meaningful use set 2024 025 [facility] [address] [place], [address], 5 10:08:16 lipid panel, serum 2024 025 [facility], [address] [place] [address], [address], 10:08:13 CMP, serum or plasma 2024 025 [facility]), [facility] [place], [address], 10:08:12 CBC w/ auto diff 2024 025 [facility]), [address] [place] [address], [address], 10:08:12 vitamin D, 25-hydroxy, total, serum 2024 025 [facility]), [address] [place] [address], [address], 10:08:16 TSH, ultra-sensi tive, serum 2024 025 [facility]), [address] [place] [address], [address], 10:08:15 cobalamin and folate panel, serum 2024 025 [facility]), [address] [place] [address], [address], 10:08:14 test, urine [address], [address] [place], [address], 5 16:13:15 urinalysis, dipstick [address], [address] [place], [address], 5 16:13:14 culture, urine 2024 025 [facility], [address] [place] [address] Ct, [place], [address], 01:06:27 Referral orthopedic surgeon referral - first available appt 2024 [facility], [address] [place], [address], 16:09:02 Procedures None recorded. Surgeries None recorded. Imaging holter monitor [address], [address] [facility], [place], [address], 12:39:14 XR, sacrum + coccyx, 2 or more view 2024 [facility], [address] [place] [address], [place], [address], 09:18:51 XR, pelvis 2024 [facility], [address] [place] [address], [place], [address], 09:19:35 Medication Orders ceftriaxone 1 gram solution for injection [address] [facility] [address] [place], [address], 15:54:17 ketorolac 60 mg/2 mL intramuscul ar solution [address] [facility], [address] [place], [address], 15:54:17 nitrofurant oin monohydrate /macrocryst als 100 mg capsule 2024 025 [facility], [address] [place], [address], 13:18:16 nitrofurant oin monohydrate /macrocryst als 100 mg capsule 2024 025 [facility], [address] [place], [address], 11:17:11 meloxicam 7.5 mg tablet 2024 025 [facility], [facility] [place], [address], 11:27:46 Patient TargetsNo targets recorded. Patient Instructions Encounter Date Encounter Id Patient Instructions Last Modified By Organization Details Last Modified Time 02/13/2025 [id number] painful urinatio n (dysuria): care instructions Not available 02/13/2025 16:13:14 04/08/2025 [id number] palpitations: care instructions [email or web address] Not available 04/08/2025 12:17:42 HIV testing: car e instructions [email or web address] Not available 04/08/2025 12:17:42 04/22/2025 [id number] painful urinatio n (dysuria): care instructions Not available 04/22/2025 13:18:09 Reason for Referral Orthopedic Surgeon Referral for Closed fracture of coccyx first available appt Referring Physician: Graciela Avilez, Family Medicine, Encounter Date: 07/10/2024 Results Created Date Observation Date Name Description Value Unit Range Abnormal Flag Note LastModifiedBy Organization Detail LastModifiedTime 02/14/2002/19/2025 URINE CULTU RELISA NE urine culture, routine Final report abnormal Not Available [facility] ([facility]) [address] [facility], [place], [address], 02/19/2025 01:06:27 02/14/2002/19/2025 URINE CULTU RE, ROUTI NE result 1 [...] oniae , and Prote us mirab ilis. Great er than 100,0 00 colon y formi ng units per mL Not Available [facility] ([facility]) [address] [facility], [place], [address], 02/19/2025 01:06:27 02/14/20 25 02/19/2025 URINE CULTU RE, ROUTI NE antimicrobia l [...] iaxon e S Cipro floxa benjamín S Ertap enem S Genta micin S Levof loxac in S Merop enem S Nitro furan toin S Piper acill in/Ta zobac williamson S Tetra cycli ne R Tobra mycin S Trime thopr im/Cerrato lfa R Not Available [facility] ([facility]) [address] [facility], [place], [address], 02/19/2025 01:06:27 02/14/20 25 02/13/2025 urina lysis , dipst ick Leukocytes Small Not Available [facility] [address] [facility], [place], [address], 02/13/2025 16:02:57 02/14/20 25 02/13/2025 urina lysis , dipst ick Nitrite negati ve Not Available [facility] [address] [facility], [place], [address], 02/13/2025 16:02:57 02/14/20 25 02/13/2025 urina lysis , dipst ick Urobilinogen .2 Not Available [facility] [address] [place] [address], [place], [address], 02/13/2025 16:02:57 02/14/20 25 02/13/2025 urina lysis , dipst ick Protein Trace Not Available [address], [place], [address], 02/13/2025 16:02:57 02/14/20 25 02/13/2025 urina lysis , dipst ick pH 7.0 Not Available [address], [address], 02/13/2025 16:02:57 02/14/20 25 02/13/2025 urina lysis , dipst ick Blood Non-He molyze d: Trace Not Available [address], [place], [address], 02/13/2025 16:02:57 02/14/20 25 02/13/2025 urina lysis , dipst ick Specific [place] 1.025 Not Available [address], [address], 02/13/2025 16:02:57 02/14/20 25 02/13/2025 urina lysis , dipst ick Ketone Negati ve Not Available [address], [address], 02/13/2025 16:02:57 02/14/20 25 02/13/2025 urina lysis , dipst ick Bilirubin Negati ve Not Available [address] [place], [address], 02/13/2025 16:02:57 02/14/20 25 02/13/2025 urina lysis , dipst ick Glucose Negati ve Not Available [facility] [address] [facility], [place], [address], 02/13/2025 16:02:57 02/14/20 25 02/13/2025 urina lysis , dipst ick Appearance Slight ly Cloudy Not Available [facility] [address] [place] [address], [place], [address], 02/13/2025 16:02:57 02/14/20 25 02/13/2025 urina lysis , dipst ick Color Yellow Not Available [facility] [address] [place] [address], [place], [address], 02/13/2025 16:02:57 02/14/20 25 02/13/2025 pregn vargas test, urine HCG negati ve Not Available [facility] [address] [facility], [place], [address], 02/13/2025 16:02:34 04/08/20 25 04/09/2025 CBC WITH DIFFE RENTI AL/PL ATELE T WBC 11.0 x10e3 /uL 3.4-10 .8 above high normal Not Available [facility] ([facility]) [address] [facility], [place], [address], 04/09/2025 10:08:11 04/08/20 25 04/09/2025 CBC WITH DIFFE RENTI AL/PL ATELE T RBC 4.97 x10e6 /uL 3.77-5 .28 normal Not Available [facility] ([facility]) [address] [facility], [place], [address], 04/09/2025 10:08:11 04/08/2004/09/2025 CBC WITH DIFFE RENTI AL/PL ATELE T hemoglobin 14.8 g/dL 11.1-1 5.9 normal Not Available [facility] ([facility]) [address] [facility], [place], [address], 04/09/2025 10:08:11 04/08/2004/09/2025 CBC WITH DIFFE RENTI AL/PL ATELE T hematocrit 46.7 % 34.0-4 6.6 above high normal Not Available [facility] ([facility]) [address] [facility], [place], [address], 04/09/2025 10:08:11 04/08/2004/09/2025 CBC WITH DIFFE RENTI AL/PL ATELE T MCV 94 fL 79-97 normal Not Available [facility] ([facility]) [address] [place], [address], 04/09/2025 10:08:11 04/08/2004/09/2025 CBC WITH DIFFE RENTI AL/PL ATELE T MCH 29.8 pg 26.6-3 3.0 normal Not Available [facility] ([facility]) [address] [place], [address], 04/09/2025 10:08:11 04/08/2004/09/2025 CBC WITH DIFFE RENTI AL/PL ATELE T MCHC 31.7 g/dL 31.5-3 5.7 normal Not Available [facility] ([facility]) [address] [place], [address], 04/09/2025 10:08:11 04/08/2004/09/2025 CBC WITH DIFFE RENTI AL/PL ATELE T RDW 12.3 % 11.7-1 5.4 Not Available [facility] ([facility]) [address] [place], [address], 04/09/2025 10:08:11 04/08/2004/09/2025 CBC WITH DIFFE RENTI AL/PL ATELE T platelets 375 x10e3 /uL 150-45 0 normal Not Available [facility] ([facility]) [address] [facility], [place], [address], 04/09/2025 10:08:11 04/08/2004/09/2025 CBC WITH DIFFE RENTI AL/PL ATELE T neutrophils 67 % not estab. normal Not Available [facility] ([facility]) [address] [facility], [place], [address], 04/09/2025 10:08:11 04/08/2004/09/2025 CBC WITH DIFFE RENTI AL/PL ATELE T lymphs 21 % not estab. normal Not Available [facility] ([facility]) [address] [facility], [place], [address], 04/09/2025 10:08:11 04/08/2004/09/2025 CBC WITH DIFFE RENTI AL/PL ATELE T monocytes 6 % not estab. normal Not Available [facility] ([facility]) [address] [facility], [place], [address], 04/09/2025 10:08:11 04/08/20 25 04/09/2025 CBC WITH DIFFE RENTI AL/PL ATELE T eos 5 % not estab. normal Not Available [facility] ([facility]) [address] [facility], [place], [address], 04/09/2025 10:08:11 04/08/2004/09/2025 CBC WITH DIFFE RENTI AL/PL ATELE T basos 1 % not estab. normal Not Available [facility] ([facility]) [address] [facility], [place], [address], 04/09/2025 10:08:11 04/08/20 25 04/09/2025 CBC WITH DIFFE RENTI AL/PL ATELE T immature cells COUNTER POCKET SEWER Not Available [facility] ([facility]) [address] [facility], [place], [address], 04/09/2025 10:08:11 04/08/2004/09/2025 CBC WITH DIFFE RENTI AL/PL ATELE T neutrophils (absolute) 7.4 x10e3 /uL 1.4-7. 0 above high normal Not Available [facility] ([facility]) [address] [place], [address], 04/09/2025 10:08:11 04/08/2004/09/2025 CBC WITH DIFFE RENTI AL/PL ATELE T lymphs (absolute) 2.3 x10e3 /uL 0.7-3. 1 normal Not Available [facility] ([facility]) [address] [facility], [place], [address], 04/09/2025 10:08:11 04/08/2004/09/2025 CBC WITH DIFFE RENTI AL/PL ATELE T monocytes(ab solute) 0.7 x10e3 /uL 0.1-0. 9 normal Not Available [facility] ([facility]) [address] [place], [address], 04/09/2025 10:08:11 04/08/20 25 04/09/2025 CBC WITH DIFFE RENTI AL/PL ATELE T eos (absolute) 0.5 x10e3 /uL 0.0-0. 4 above high normal Not Available [facility] ([facility]) [address] [place], [address], 04/09/2025 10:08:11 04/08/2004/09/2025 CBC WITH DIFFE RENTI AL/PL ATELE T baso (absolute) 0.1 x10e3 /uL 0.0-0. 2 normal Not Available [facility] ([facility]) [address] [place], [address], 04/09/2025 10:08:11 10/13/20 25 04/09/2025 CBC WITH DIFFE RENTI AL/PL ATELE T immature granulocytes 0 % not estab. Not Available [facility] ([facility]) [address] [facility], [place], [address], 04/09/2025 10:08:11 04/08/20 25 04/09/2025 CBC WITH DIFFE RENTI AL/PL ATELE T immature grans (abs) 0.0 x10e3 /uL 0.0-0. 1 Not Available [facility] ([facility]) [address] [facility], [place], [address], 04/09/2025 10:08:11 04/08/2004/09/2025 CBC WITH DIFFE RENTI AL/PL ATELE T NRBC COUNTER POCKET SEWER Not Available [facility] ([facility]) [address] [facility], [place], [address], 04/09/2025 10:08:11 04/08/2004/09/2025 CBC WITH DIFFE RENTI AL/PL ATELE T hematology comments: COUNTER POCKET SEWER Not Available [facility] ([facility]) [address] [facility], [place], [address], 04/09/2025 10:08:11 04/08/20 25 04/09/2025 COMP. METAB OLIC PANEL (14) glucose 76 mg/dL 70-99 normal Not Available [facility] ([facility]) [address] [facility], [place], [address], 04/09/2025 10:08:12 04/08/2004/09/2025 COMP. METAB OLIC PANEL (14) BUN 12 mg/dL 6-20 normal Not Available [facility] ([facility]) [address] [facility], [place], [address], 04/09/2025 10:08:12 04/08/20 25 04/09/2025 COMP. METAB OLIC PANEL (14) creatinine 0.74 mg/dL 0.57-1 .00 normal Not Available [facility] ([facility]) [address] [facility], [place], [address], 04/09/2025 10:08:12 04/08/20 25 04/09/2025 COMP. METAB OLIC PANEL (14) eGFR 115 mL/mi n/1.7 3 >59 normal Not Available [facility] ([facility]) [address] [facility], [place], [address], 04/09/2025 10:08:12 04/08/20 25 04/09/2025 COMP. METAB OLIC PANEL (14) BUN/creatini ne ratio 16 9-23 normal Not Available [facility]) [address] [facility], [place], [address], 04/09/2025 10:08:12 04/08/2004/09/2025 COMP. METAB OLIC PANEL (14) sodium 138 mmol/ L 134-14 4 normal Not Available [facility] ([facility]) [address] [facility] [place], [address], 04/09/2025 10:08:12 04/08/20 25 04/09/2025 COMP. METAB OLIC PANEL (14) potassium 4.2 mmol/ L 3.5-5. 2 normal Not Available [facility] ([facility]) [address] [facility] [place], [address], 04/09/2025 10:08:12 04/08/20 25 04/09/2025 COMP. METAB OLIC PANEL (14) chloride 100 mmol/ L 96-106 normal Not Available [facility] ([facility]) [address] [place], [address], 04/09/2025 10:08:12 04/08/20 25 04/09/2025 COMP. METAB OLIC PANEL (14) carbon dioxide, total 23 mmol/ L 20-29 normal Not Available [facility] ([facility]) [address] [place], [address], 04/09/2025 10:08:12 04/08/2004/09/2025 COMP. METAB OLIC PANEL (14) calcium 10.0 mg/dL 8.7-10 .2 normal Not Available [facility] ([facility]) [address] [facility] [place], [address], 04/09/2025 10:08:12 04/08/2004/09/2025 COMP. METAB OLIC PANEL (14) protein, total 7.9 g/dL 6.0-8. 5 normal Not Available [facility] ([facility]) [address] [facility] [place], [address], 04/09/2025 10:08:12 04/08/2004/09/2025 COMP. METAB OLIC PANEL (14) albumin 5.0 g/dL 4.0-5. 0 normal Not Available [facility] ([facility]) [address] [facility] [place], [address], 04/09/2025 10:08:12 04/08/2004/09/2025 COMP. METAB OLIC PANEL (14) globulin, total 2.9 g/dL 1.5-4. 5 Not Available [facility] ([facility]) [address] [facility] [place], [address], 04/09/2025 10:08:12 04/08/2004/09/2025 COMP. METAB OLIC PANEL (14) bilirubin, total 0.7 mg/dL 0.0-1. 2 normal Not Available [facility] ([facility]) [address] [facility] [place], [address], 04/09/2025 10:08:12 04/08/2004/09/2025 COMP. METAB OLIC PANEL (14) alkaline phosphatase 89 IU/L 41-116 normal Not Available [facility]) [address] [facility] [place], [address], 04/09/2025 10:08:12 04/08/2004/09/2025 COMP. METAB OLIC PANEL (14) AST (SGOT) 15 IU/L 0-40 normal Not Available [facility] ([facility]) [address] [place], [address], 04/09/2025 10:08:12 04/08/2004/09/2025 COMP. METAB OLIC PANEL (14) ALT (SGPT) 13 IU/L 0-32 normal Not Available [facility] ([facility]) [address] [place], [address], 04/09/2025 10:08:12 04/08/2004/09/2025 LIPID PANEL cholesterol, total 180 mg/dL 100-19 9 normal Not Available [facility] ([facility]) [address] [place], [address], 04/09/2025 10:08:13 04/08/2004/09/2025 LIPID PANEL triglyceride s 82 mg/dL 0-149 normal Not Available [facility]) [address] [place], [address], 04/09/2025 10:08:13 04/08/20 25 04/09/2025 LIPID PANEL HDL cholesterol 50 mg/dL >39 normal Not Available [facility]) [address] [place], [address], 04/09/2025 10:08:13 04/08/2004/09/2025 LIPID PANEL VLDL cholesterol eric 15 mg/dL 5-40 Not Available [facility]) [address] [place], [address], 04/09/2025 10:08:13 04/08/20 25 04/09/2025 LIPID PANEL LDL chol calc ([facility]) 115 mg/dL 0-99 above high normal Not Available [facility] ([facility]) [address] [facility], [place], [address], 04/09/2025 10:08:13 04/08/2004/09/2025 LIPID PANEL LDL calc comment: COUNTER POCKET SEWER Not Available [facility]) [address] [facility], [place], [address], 04/09/2025 10:08:13 04/08/2004/09/2025 VITAM IN B12 AND FOLAT E vitamin B12 588 pg/mL 232-12 45 normal Not Available [facility] ([facility]) [address] [facility], [place], [address], 04/09/2025 10:08:14 04/08/2004/09/2025 VITAM IN B12 AND FOLAT E folate (folic acid), serum 4.0 NG/mL >3.0 normal A serum folat e ludwin ntrat ion of less than 3.1 ng/mL is consi dered to repre sent clini eric defic iency . Not Available [facility] ([facility]) [address] [facility], [place], [address], 04/09/2025 10:08:14 04/08/2004/09/2025 HCV ANTIB NICHELLE CASCA DE(PC R/GEN O) HCV Ab Non Reacti ve non reacti ve Not Available [facility] ([facility]) [address] [facility], [place], [address], 04/09/2025 10:08:14 04/08/2004/09/2025 HCV ANTIB NICHELLE CASCA DE(PC R/GEN O) interpretati on: Commen t Not infec trish with HCV unles s early or acute infec tion is suspe cted (whic h may be delay ed in an immun ocomp romis ed indiv idual ), or other evide nce exist s to indic ate HCV infec tion. Not Available [facility] ([facility]) [address] [facility], [place], [address], 04/09/2025 10:08:14 04/08/20 25 04/09/2025 TSH TSH 2.350 uIU/m L 0.450- 4.500 normal Not Available [facility] ([facility]) [address], [place], [address], 04/09/2025 10:08:15 04/08/2004/09/2025 VITAM IN D, 25-HY DROXY vitamin D, 25-hydroxy 19.9 NG/mL 30.0-1 00.0 below low normal Vitam in D defic iency has been defin ed by the [facility] ine and an Endoc rine Socie ty [...] Medic ine). 2009. Dieta ry refer ence intak es for calci um and D. Shanon concepcion [place]: [facility] . 2. Sánchez topete [place], Nakia youssef [place], Chris off-F rossy i [place], et al. Evalu ation , treat ment, and preve ntion of vitam in D defic iency : an Endoc rine Socie ty clini eric pract ice guide line. JCEM. 2010; 96(7) :1911 -30. Not Available [facility] ([facility]) [address], [place], [address], 04/09/2025 10:08:16 04/08/2004/09/2025 HIV AB/P2 4 AG WITH REFLE X HIV Ab/P24 Ag screen Non Reacti ve non reacti ve HIV-1 /HIV- 2 antib odies and HIV-1 p24 antig en were NOT detec trish. There is no labor atory evide nce of HIV infec tion. HIV Negat nancy Not Available [facility] ([facility]) [address] [facility], [place], [address], 04/09/2025 10:08:16 04/22/2004/25/2025 URINE CULTU RE, ROUTI NE urine culture, routine Final report abnormal Not Available [facility] ([facility]) [address] [facility], [place], [address], 04/25/2025 15:08:27 04/22/2004/25/2025 URINE CULTU RE, ROUTI [...] ng units per mL Not Available [facility] ([facility]) [address] [facility], [place], [address], 04/25/2025 15:08:27 04/22/2004/25/2025 URINE CULTU RE, ROUTI [...] (exce pt for high- level resis tance scree anisha) , cepha lospo rins, clind amyci n, and trime thopr im-cerrato lfame thoxa zole are not effec tive clini audrey . (CLSI , M100- S26, 2016) Note: this isola te is vanco mycin -susc eptib le. This infor matio n is provi ded for epidamrik martines gi purpo ses only: vanco mycin is not among the antib iotic s recom damian d for thera py of urina ry tract infec tions cause d by Enter ococc us. 25,00 0-50, 000 colon y formi ng units per mL Not Available [facility] ([facility]) [address] [facility], [place], [address], 04/25/2025 15:08:27 04/22/2004/25/2025 URINE CULTU RE, ROUTI [...] R Vanco mycin S Not Available [facility] ([facility]) [address] [facility], [place], [address], 04/25/2025 15:08:27 04/22/2004/22/2025 urina lysis , dipst ick Leukocytes Small Not Available [facility] [address] [facility], [place], [address], 04/22/2025 12:13:25 04/22/2004/22/2025 urina lysis , dipst ick Nitrite negati ve Not Available [address], [place], [address], 04/22/2025 12:13:25 04/22/2004/22/2025 urina lysis , dipst ick Urobilinogen .2 Not Available [address], [place], [address], 04/22/2025 12:13:25 04/22/2004/22/2025 urina lysis , dipst ick Protein Negati ve Not Available [address], [place], [address], 04/22/2025 12:13:25 04/22/2004/22/2025 urina lysis , dipst ick pH 5.5 Not Available [address], [place], [address], 04/22/2025 12:13:25 04/22/2004/22/2025 urina lysis , dipst ick Blood Non-He molyze d: Trace Not Available [address], [place], [address], 04/22/2025 12:13:25 04/22/2004/22/2025 urina lysis , dipst ick Specific [place] 1.025 Not Available [address], [place], [address], 04/22/2025 12:13:25 04/22/2004/22/2025 urina lysis , dipst ick Ketone Negati ve Not Available [address], [address], 04/22/2025 12:13:25 04/22/2004/22/2025 urina lysis , dipst ick Bilirubin Negati ve Not Available [address], [place], [address], 04/22/2025 12:13:25 04/22/2004/22/2025 urina lysis , dipst ick Glucose Negati ve Not Available [address], [place], [address], 04/22/2025 12:13:25 04/22/2004/22/2025 urina lysis , dipst ick Appearance Clear Not Available [address], [address], 04/22/2025 12:13:25 04/22/2004/22/2025 urina lysis , dipst ick Color Yellow Not Available [address], [place], [address], 04/22/2025 12:13:25 07/11/19 25 XR, sacru m + coccy x, 2 or more view No observ ation record ed. [email or web address] [address], [address], 07/15/2024 21:09:36 07/11/19 25 XR, pelvi s No observ ation record ed. [email or web address] [address], [address], 07/15/2024 21:09:36 04/08/2004/08/2025 rashel r monit or No observ ation record ed. [email or web address] [address], [address], 04/09/2025 14:22:06 04/18/20 25 04/18/2025 rashel r monit or No observ ation record ed. [facility] [address] [facility], [place], [address], 04/29/2025 09:39:33 Result Notes None recorded. Problems Name Problem SNOMED Code Status Onset Date Resolution Date Notes Provider Name and Address Organization Details Recorded Time Acute cystitis 84616583 Completed 201701/19/2018 Problem Code: N30.01; Problem Code Type: ICD-10; Not Available [facility] 21:33:35 [place] ht in childhoo d [id number] Completed 201709/15/2021 Problem Code: Z68.53; Problem Code Type: ICD-10; Not Available [facility] 21:33:36 Acute cystitis [id number] Completed 201702/10/2018 Problem Code: N30.01; Problem Code Type: ICD-10; Not Available [facility] 21:33:35 Acute vaginiti s [id number] Completed 201703/28/2018 Problem Code: N76.0; Problem Code Type: ICD-10; Not Available [facility] 21:33:35 Vaginiti s and vulvovag initis Completed 201703/28/2018 Problem Code: 616.10; Problem Code Type: ICD-9; Not Available [facility] 21:33:37 Acute suppurat nancy otitis media [id number] Completed 201805/26/2022 DIONNE laboy, [employer] 09:11:53 Amenorrh ea [id number] Completed 201805/26/2022 Problem Code: N91.2; Problem Code Type: ICD-10; DIONNE laboy, [employer] 09:11:53 Pregnanc y detectio n examinat ion Completed 201809/15/2021 Problem Code: Z32.01; Problem Code Type: ICD-10; Not Available [facility] 21:33:36 Influenz a vaccine needed [id number] 06 Completed 201905/26/2022 Problem Code: Z23; Problem Code Type: ICD-10; DIONNE MYBRADLEYR null, [employer] 2 09:11:53 Urinary tract infectio us disease 44107312 Completed 202009/15/2021 Problem Code: N39.0; Problem Code Type: ICD-10; DIONNE MYNEAR null, [employer] 2 09:11:53 Urinary tract infectio us disease 10746854 Completed 202105/26/2022 Problem Code: N39.0; Problem Code Type: ICD-10; DIONNE MYNEAR null, [employer] 2 09:11:53 Dysuria 17060094 Completed 202105/26/2022 Problem Code: R30.0; Problem Code Type: ICD-10; MIRNA AMBRIZ, [employer] [address] [place] [address], [phone] , [employer] 5 16:09:51 Abdomina l pain 67385990 Completed 202105/26/2022 Problem Code: R10.9; Problem Code Type: ICD-10; DIONNE MACYNEAR null, [employer] 2 09:11:53 Gallblad antione calculus with acute cholecys titis and no obstruct ion 242017498 Completed 202105/26/2022 Problem Code: K80.00; Problem Code Type: ICD-10; DIONNE MYNEAR null, [employer] 2 09:11:53 Viral screenin g Completed 202105/26/2022 Problem Code: Z11.59; Problem Code Type: ICD-10; DIONNE MYNEAR null, [place] [employer] 2 09:11:53 Dysuria 18320557 Active 2024 Problem Code: R30.0; Problem Code Type: ICD-10; MIRNA AMBRIZ NP [address] [place] [address], [phone] , [employer] 5 16:09:50 Acute urinary tract infectio n 344870425 Active 2024 MIRNA AMBRIZ NP [address] [place] [address], [phone] , [facility]. 5 16:10:04 Vitamin D deficien cy 28410010 Active 2024 ROCIO Yanez [address] [place] [address], [phone] , [facility]. 5 08:35:31 Recurren t urinary tract infectio n 491317927 Active 2024 MIRNA AMBRIZ NP [address] [place] [address], [phone] , [facility]. 5 16:09:33 Problem Notes None recorded. Procedures 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 Date Name Laterality Status Provider Name and Address Organization Details Recorded Time 07/12/19 21 section completed Not Available [facility] 11/2021 22:56:13 01/06/20 18 tonsillectomy and adenoidectomy completed Not Available [facility] 03/02/2022 22:56:14 01/06/20 18 hernia repair completed Not Available [facility] 2021 22:56:15 Gallbladder Surgery completed [employer] 04/08/2025 11:23:10 section completed [employer] 04/08/2025 11:23:16 section completed [employer] 04/08/2025 11:23:21 Imaging Results None recorded. Procedure Notes None recorded. Medical Equipment None Reported. Allergies Allergen ID Allergen Name Allergen Category Reaction Reaction Severity Criticality Documentation Date Start Date Code Code System Note Provider Name and Address Organization Details Recorded Time 67729 Substance with sulfonami de structure and antibacte rial mechanism of action (substanc e) medicatio n Not available Not available Not available 03/02/2022 04349 8003 SNOMED CHAUNCEY JENSENNIC laboy [facility] [email or web address]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
--- OUTSIDE RECORDS SUMMARY | 2025-05-13 22:37 | XMS_ITS | Continuity of Care Document ---
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 Plan of Treatment Reminders Order Date Submit Date Provider Last Modified By Organization Details Last Modified Time Details Appointments None recorded. Lab culture, urine 2024 [place] [facility], [address] [place] [address], [place], [address], 15:08:27 urinalysis, dipstick 2024 025 [email or web address] [facility], [address] [facility], [place], [address], 13:18:09 Referral None recorded. Procedures None recorded. Surgeries None recorded. Imaging None recorded. Medication Orders nitrofurant oin monohydrate /macrocryst als 100 mg capsule 2024 025 [facility] 493, [address] [facility], [place], [address], 13:18:16 Patient TargetsNo targets recorded. Patient Instructions Encounter Date Encounter Id Patient Instructions Last Modified By Organization Details Last Modified Time 04/22/2025 [id number] painful urinatio n (dysuria): care instructions [email or web address] Not available 04/22/2025 13:18:09 Reason for Referral None Reported. Results Created Date Observation Date Name Description Value Unit Range Abnormal Flag Note LastModifiedBy Organization Detail LastModifiedTime 04/08/2004/09/2025 CBC WITH DIFFE RENTI AL/PL ATELE T WBC 11.0 x10e3 /uL 3.4-10 .8 above high normal Not Available [facility] ([facility]) [address] [place], [address], 04/09/2025 10:08:11 04/08/2004/09/2025 CBC WITH DIFFE RENTI AL/PL ATELE T RBC 4.97 x10e6 /uL 3.77-5 .28 normal Not Available [facility] ([facility]) [address] [place], [address], 04/09/2025 10:08:11 04/08/20 25 04/09/2025 CBC WITH DIFFE RENTI AL/PL ATELE T hemoglobin 14.8 g/dL 11.1-1 5.9 normal Not Available [facility] ([facility]) [address] [place], [address], 04/09/2025 10:08:11 04/08/2004/09/2025 CBC WITH DIFFE RENTI AL/PL ATELE T hematocrit 46.7 % 34.0-4 6.6 above high normal Not Available [facility] ([facility]) [address] [place], [address], 04/09/2025 10:08:11 04/08/2004/09/2025 CBC WITH DIFFE RENTI AL/PL ATELE T MCV 94 fL 79-97 normal Not Available [facility] ([facility]) [address] [place], [address], 04/09/2025 10:08:11 04/08/20 25 04/09/2025 CBC WITH DIFFE RENTI AL/PL ATELE T MCH 29.8 pg 26.6-3 3.0 normal Not Available [facility] ([facility]) [address] [facility] [place], [address], 04/09/2025 10:08:11 04/08/2004/09/2025 CBC WITH DIFFE RENTI AL/PL ATELE T MCHC 31.7 g/dL 31.5-3 5.7 normal Not Available [facility] ([facility]) [address] [facility], [place], [address], 04/09/2025 10:08:11 04/08/2004/09/2025 CBC WITH DIFFE RENTI AL/PL ATELE T RDW 12.3 % 11.7-1 5.4 Not Available [facility] ([facility]) [address] [facility], [place], [address], 04/09/2025 10:08:11 04/08/2004/09/2025 CBC WITH DIFFE RENTI AL/PL ATELE T platelets 375 x10e3 /uL 150-45 0 normal Not Available [facility] ([facility]) [address] [facility], [place], [address], 04/09/2025 10:08:11 04/08/2004/09/2025 CBC WITH DIFFE RENTI AL/PL ATELE T neutrophils 67 % not estab. normal Not Available [facility] ([facility]) [address] [facility], [place], [address], 04/09/2025 10:08:11 04/08/2004/09/2025 CBC WITH DIFFE RENTI AL/PL ATELE T lymphs 21 % not estab. normal Not Available [facility] ([facility]) [address] [facility], [place], [address], 04/09/2025 10:08:11 04/08/20 25 04/09/2025 CBC WITH DIFFE RENTI AL/PL ATELE T monocytes 6 % not estab. normal Not Available [facility] ([facility]) [address] [place], [address], 04/09/2025 10:08:11 04/08/20 25 04/09/2025 CBC WITH DIFFE RENTI AL/PL ATELE T eos 5 % not estab. normal Not Available [facility] ([facility]) [address] [facility], [place], [address], 04/09/2025 10:08:11 04/08/2004/09/2025 CBC WITH DIFFE RENTI AL/PL ATELE T basos 1 % not estab. normal Not Available [facility] (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) [address] [place], [address], 04/09/2025 10:08:11 04/08/2004/09/2025 CBC WITH DIFFE RENTI AL/PL ATELE T neutrophils (absolute) 7.4 x10e3 /uL 1.4-7. 0 above high normal Not Available [facility] ([facility]) [address] [facility], [place], [address], 04/09/2025 10:08:11 04/08/20 25 04/09/2025 CBC WITH DIFFE RENTI AL/PL ATELE T lymphs (absolute) 2.3 x10e3 /uL 0.7-3. 1 normal Not Available [facility] ([facility]) [address] [place], [address], 04/09/2025 10:08:11 04/08/20 25 04/09/2025 CBC WITH DIFFE RENTI AL/PL ATELE T monocytes(ab solute) 0.7 x10e3 /uL 0.1-0. 9 normal Not Available [facility] ([facility]) [address] [place], [address], 04/09/2025 10:08:11 04/08/2004/09/2025 CBC WITH DIFFE RENTI AL/PL ATELE T eos (absolute) 0.5 x10e3 /uL 0.0-0. 4 above high normal Not Available [facility] ([facility]) [address] [facility], [place], [address], 04/09/2025 10:08:11 04/08/2004/09/2025 CBC WITH DIFFE RENTI AL/PL ATELE T baso (absolute) 0.1 x10e3 /uL 0.0-0. 2 normal Not Available [facility] ([facility]) [address] [facility], [place], [address], 04/09/2025 10:08:11 04/08/2004/09/2025 CBC WITH DIFFE RENTI AL/PL ATELE T immature granulocytes 0 % not estab. Not Available [facility] ([facility]) [address] [facility], [place], [address], 04/09/2025 10:08:11 04/08/2004/09/2025 CBC WITH DIFFE RENTI AL/PL ATELE T immature grans (abs) 0.0 x10e3 /uL 0.0-0. 1 Not Available [facility] (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) [address] [facility], [place], [address], 04/09/2025 10:08:11 04/08/20 25 04/09/2025 COMP. METAB OLIC PANEL (14) glucose 76 mg/dL 70-99 normal Not Available [facility] ([facility]) [address] [facility] [place], [address], 04/09/2025 10:08:12 04/08/20 25 04/09/2025 COMP. METAB OLIC PANEL (14) BUN 12 mg/dL 6-20 normal Not Available [facility] ([facility]) [address] [facility] [place], [address], 04/09/2025 10:08:12 04/08/2004/09/2025 COMP. METAB OLIC PANEL (14) creatinine 0.74 mg/dL 0.57-1 .00 normal Not Available [facility] ([facility]) [address] [place], [address], 04/09/2025 10:08:12 04/08/20 25 04/09/2025 COMP. METAB OLIC PANEL (14) eGFR 115 mL/mi n/1.7 3 >59 normal Not Available [facility] ([facility]) [address] [place], [address], 04/09/2025 10:08:12 04/08/20 25 04/09/2025 COMP. METAB OLIC PANEL (14) BUN/creatini ne ratio 16 9-23 normal Not Available [facility] ([facility]) [address] [place], [address], 04/09/2025 10:08:12 04/08/20 25 04/09/2025 COMP. METAB OLIC PANEL (14) sodium 138 mmol/ L 134-14 4 normal Not Available [facility] ([facility]) [address] [place], [address], 04/09/2025 10:08:12 10/13/04/09/2025 COMP. METAB OLIC PANEL (14) potassium 4.2 mmol/ L 3.5-5. 2 normal Not Available [facility] ([facility]) [address] [facility] [place], [address], 04/09/2025 10:08:12 04/08/20 25 04/09/2025 COMP. METAB OLIC PANEL (14) chloride 100 mmol/ L 96-106 normal Not Available [facility] ([facility]) [address] [facility] [place], [address], 04/09/2025 10:08:12 04/08/2004/09/2025 COMP. METAB OLIC PANEL (14) carbon dioxide, total 23 mmol/ L 20-29 normal Not Available [facility] ([facility]) [address] [facility] [place], [address], 04/09/2025 10:08:12 04/08/20 25 04/09/2025 COMP. METAB OLIC PANEL (14) calcium 10.0 mg/dL 8.7-10 .2 normal Not Available [facility] ([facility]) [address] [place], [address], 04/09/2025 10:08:12 04/08/20 25 04/09/2025 COMP. METAB OLIC PANEL (14) protein, total 7.9 g/dL 6.0-8. 5 normal Not Available [facility] ([facility]) [address] [place], [address], 04/09/2025 10:08:12 04/08/20 25 04/09/2025 COMP. METAB OLIC PANEL (14) albumin 5.0 g/dL 4.0-5. 0 normal Not Available [facility] ([facility]) [address] [place], [address], 04/09/2025 10:08:12 04/08/20 25 04/09/2025 COMP. METAB OLIC PANEL (14) globulin, total 2.9 g/dL 1.5-4. 5 Not Available [facility] ([facility]) [address] [facility] [place], [address], 04/09/2025 10:08:12 04/08/2004/09/2025 COMP. METAB OLIC PANEL (14) bilirubin, total 0.7 mg/dL 0.0-1. 2 normal Not Available [facility] ([facility]) [address] [facility] [place], [address], 04/09/2025 10:08:12 04/08/20 25 04/09/2025 COMP. METAB OLIC PANEL (14) alkaline phosphatase 89 IU/L 41-116 normal Not Available [facility] ([facility]) [address] [facility] [place], [address], 04/09/2025 10:08:12 04/08/2004/09/2025 COMP. METAB OLIC PANEL (14) AST (SGOT) 15 IU/L 0-40 normal Not Available [facility] ([facility]) [address] [facility] [place], [address], 04/09/2025 10:08:12 04/08/2004/09/2025 COMP. METAB OLIC PANEL (14) ALT (SGPT) 13 IU/L 0-32 normal Not Available [facility] ([facility]) [address] [facility] [place], [address], 04/09/2025 10:08:12 04/08/20 25 04/09/2025 LIPID PANEL cholesterol, total 180 mg/dL 100-19 9 normal Not Available [facility] ([facility]) [address] [facility] [place], [address], 04/09/2025 10:08:13 04/08/2004/09/2025 LIPID PANEL triglyceride s 82 mg/dL 0-149 normal Not Available [facility] ([facility]) [address] [facility], [place], [address], 04/09/2025 10:08:13 04/08/2004/09/2025 LIPID PANEL HDL cholesterol 50 mg/dL >39 normal Not Available [facility] ([facility]) [address] [facility], [place], [address], 04/09/2025 10:08:13 04/08/2004/09/2025 LIPID PANEL VLDL cholesterol eric 15 mg/dL 5-40 Not Available [facility] ([facility]) [address] [facility], [place], [address], 04/09/2025 10:08:13 04/08/2004/09/2025 LIPID PANEL LDL chol calc ([facility]) 115 mg/dL 0-99 above high normal Not Available [facility] (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) [address] [facility], [place], [address], 04/09/2025 10:08:14 04/08/2004/09/2025 VITAM IN B12 AND FOLAT E folate (folic acid), serum 4.0 NG/mL >3.0 normal A serum folat e ludwin ntrat ion of less than 3.1 ng/mL is consi dered to repre sent clini eric defic iency . Not Available [facility] ([facility]) [address] [facility], [place], [address], 04/09/2025 10:08:14 10/13/20 25 04/09/2025 HCV ANTIB NICHELLE CASCA DE(PC R/GEN O) HCV Ab Non Reacti ve non reacti ve Not Available [facility] ([facility]) [address] [facility], [place], [address], 04/09/2025 10:08:14 04/08/20 25 04/09/2025 HCV ANTIB NICHELLE CASCA DE(PC R/GEN O) interpretati on: Commen t Not infec trish with HCV unles s early or acute infec tion is suspe cted (whic h may be delay ed in an immun ocomp romis ed indiv idual ), or other evide nce exist s to indic ate HCV infec tion. Not Available [facility] ([facility]) [address] [facility], [place], [address], 04/09/2025 10:08:14 04/08/2004/09/2025 TSH TSH 2.350 uIU/m L 0.450- 4.500 normal Not Available [facility] ([facility]) [address] [facility], [place], [address], 04/09/2025 10:08:15 04/08/2004/09/2025 VITAM IN D, 25-HY [...] 1. IOM (Inst itute of Medic ine). 2010. Dieta ry refer ence intak es for calci um and D. Shanon concepcion [place]: The [facility] Press . 2. Sánchez topete [place], Nakia youssef [place], Chris off-F errar i WRIGHT, et al. Evalu ation , treat ment, and preve ntion of vitam in D defic iency : an Endoc rine Socie ty clini eric pract ice guide line. JCEM. 2010; 96(7) :1911 -30. Not Available [facility] ([facility]) [address] [facility], [place], [address], 04/09/2025 10:08:16 04/08/2004/09/2025 HIV AB/P2 4 AG WITH REFLE X HIV Ab/P24 Ag screen Non Reacti ve non reacti ve HIV-1 /HIV- 2 antib odies and HIV-1 p24 antig en were NOT detec trish. There is no labor atory evide nce of HIV infec tion. HIV Negat nancy Not Available [facility] ([facility]) [address] [facility], [place], [address], 04/09/2025 10:08:16 04/22/2004/25/2025 URINE CULTU RE, ROUTI NE urine culture, routine Final report abnormal Not Available [facility] ([facility]) [address] [facility], [place], [address], 04/25/2025 15:08:27 04/22/2004/25/2025 URINE CULTU RE, ROUTI [...] ng units per mL Not Available [facility] ([facility]) [address] [facility], [place], [address], 04/25/2025 15:08:27 04/22/2004/25/2025 URINE CULTU RE, ROUTI [...] ng units per mL Not Available [facility] ([facility]) [address] [facility], [place], [address], 04/25/2025 15:08:27 04/22/2004/25/2025 URINE CULTU RE, ROUTI [...] R Vanco mycin S Not Available [facility] ([facility]) [address] [facility], [place], [address], 04/25/2025 15:08:27 04/22/2004/22/2025 urina lysis , dipst ick Leukocytes Small Not Available [address], [address], 04/22/2025 12:13:25 04/22/2004/22/2025 urina lysis , dipst ick Nitrite negati ve Not Available [address], [address], 04/22/2025 12:13:25 04/22/2004/22/2025 urina lysis , dipst ick Urobilinogen .2 Not Available [address], [address], 04/22/2025 12:13:25 04/22/2004/22/2025 urina lysis , dipst ick Protein Negati ve Not Available [address], [address], 04/22/2025 12:13:25 04/22/2004/22/2025 urina lysis , dipst ick pH 5.5 Not Available [address], [address], 04/22/2025 12:13:25 04/22/2004/22/2025 urina lysis , dipst ick Blood Non-He molyze d: Trace Not Available [address], [place], [address], 04/22/2025 12:13:25 04/22/2004/22/2025 urina lysis , dipst ick Specific [place] 1.025 Not Available [address], [place], [address], 04/22/2025 12:13:25 04/22/2004/22/2025 urina lysis , dipst ick Ketone Negati ve Not Available [address], [address], 04/22/2025 12:13:25 04/22/2004/22/2025 urina lysis , dipst ick Bilirubin Negati ve Not Available [address], [place], [address], 04/22/2025 12:13:25 04/22/2004/22/2025 urina lysis , dipst ick Glucose Negati ve Not Available [address], [place], [address], 04/22/2025 12:13:25 04/22/2004/22/2025 urina lysis , dipst ick Appearance Clear Not Available [address], [place], [address], 04/22/2025 12:13:25 04/22/2004/22/2025 urina lysis , dipst ick Color Yellow Not Available [address], [address], 04/22/2025 12:13:25 04/08/2004/08/2025 rashel r monit or No observ ation record ed. [email or web address] [facility] [address] [facility], [place], [address], 04/09/2025 14:22:06 04/18/2004/18/2025 rashel r monit or No observ ation record ed. [facility] [address] [place], [address], 04/29/2025 09:39:33 Result Notes None recorded. Problems Name Problem SNOMED Code Status Onset Date Resolution Date Notes Provider Name and Address Organization Details Recorded Time Acute cystitis 18327631 Completed 201701/19/2018 Problem Code: N30.01; Problem Code Type: ICD-10; Not Available [facility] 21:33:35 [place] ht in childo d [id number] Completed 201709/15/2021 Problem Code: Z68.53; Problem Code Type: ICD-10; Not Available [facility] 21:33:36 Acute cystitis 92227387 Completed 201702/10/2018 Problem Code: N30.01; Problem Code Type: ICD-10; Not Available [facility] 21:33:35 Acute vaginiti s 88619680 Completed 201703/28/2018 Problem Code: N76.0; Problem Code Type: ICD-10; Not Available [facility] 21:33:35 Vaginiti s and vulvovag initis Completed 201703/28/2018 Problem Code: 616.10; Problem Code Type: ICD-9; Not Available [facility] 21:33:37 Acute suppurat nancy otitis media 345300097 Completed 201805/26/2022 DEJON Garcia - [employer] 09:11:53 Amenorrh ea 72712494 Completed 201805/26/2022 Problem Code: N91.2; Problem Code Type: ICD-10; DIONNE CAVAZOSNEAR null, [employer] 2 09:11:53 Pregnanc y detectio n examinat ion Completed 201809/15/2021 Problem Code: Z32.01; Problem Code Type: ICD-10; Not Available [facility] 2 21:33:36 Influenz a vaccine needed [id number] 06 Completed 201905/26/2022 Problem Code: Z23; Problem Code Type: ICD-10; DIONNE MYNEAR null, [employer] 2 09:11:53 Urinary tract infectio us disease 20365619 Completed 202009/15/2021 Problem Code: N39.0; Problem Code Type: ICD-10; DIONNE MYNEAR null, [employer] 2 09:11:53 Urinary tract infectio us disease 92966980 Completed 202105/26/2022 Problem Code: N39.0; Problem Code Type: ICD-10; DIONNE MYNEAR null, [employer] 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 5 16:09:51 Abdomina l pain 98893867 Completed 202105/26/2022 Problem Code: R10.9; Problem Code Type: ICD-10; DIONNE MYNEAR null, [employer] 2 09:11:53 Gallblad antione calculus with acute cholecys titis and no obstruct ion 860716422 Completed 202105/26/2022 Problem Code: K80.00; Problem Code Type: ICD-10; DIONNE MYNEAR null, [employer] 2 09:11:53 Viral screenin g Completed 202105/26/2022 Problem Code: Z11.59; Problem Code Type: ICD-10; DIONNE MINER narda, [employer] 2 09:11:53 Dysuria 04671105 Active 2024 Problem Code: R30.0; Problem Code Type: ICD-10; MIRNA AMBRIZ NP [address] [place] [address], [address] [place] [address] , [employer] 5 16:09:50 Acute urinary tract infectio n 865332781 Active 2024 MIRNA AMBRIZ NP [address] [place] [address], [address] [place] [address] , [employer] 5 16:10:04 Vitamin D deficien cy 48211901 Active 2024 ROCIO Yanez [address] [place] [address], [address] [place] [address] , [employer] 5 08:35:31 Recurren t urinary tract infectio n 156410688 Active 2024 MIRNA AMBRIZ NP [address] [place] [address], [address] [place] [address] , [employer] 5 16:09:33 Problem Notes None recorded. Procedures 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 Date Name Laterality Status Provider Name and Address Organization Details Recorded Time 07/12/19 21 section completed Not Available [facility] 11/2021 22:56:13 01/06/20 18 tonsillectomy and adenoidectomy completed Not Available [facility] 03/02/2022 22:56:14 01/06/20 18 hernia repair completed Not Available [facility] 2021 22:56:15 Gallbladder Surgery completed [employer] 04/08/2025 11:23:10 section completed [employer]. 04/08/2025 11:23:16 section completed [employer]. 04/08/2025 11:23:21 Imaging Results None recorded. Procedure Notes None recorded. Medical Equipment None Reported. Allergies Allergen ID Allergen Name Allergen Category Reaction Reaction Severity Criticality Documentation Date Start Date Code Code System Note Provider Name and Address Organization Details Recorded Time 08800 Substance with sulfonami de structure and antibacte rial mechanism of action (substanc e) medicatio n Not available Not available Not available 03/02/2022 46506 [id number] SNOMED CHAUNCEY VIEYRA [facility] [employer] [facility]. 09:20:29 Medications Name Sig Start Date Stop [...] Organization Details Last Updated DateTime 170.18 cm 26.5 kg/m2 93385.1 1 g 70 /min 95 % 95 % 122/74 mm[Hg] Jovany Vasquez Hytle, ASCENDANT [employer]. 12:16:18 Social History Question Answer Notes LastModified by Organizat ion Details LastModified Time Tobacco Smoking Status Never Smoker LAZARORomie JARRELL laboy, [employer] 04/23/2022 09:21:43 Do You Have An Advance [...] Do You Have A Medical Power Of Lead Radiation Therapist? No Information not available 04/23/2022 What Was [...] anxious, or unable to sleep at night)? [id number] Information not available 04/08/2025 Do you have [...] ent. N Hypothyroidism N Lung Disease N Dermatologic Disorders N Depression N COPD N Developmental or Behavioral Disorders N Defects or Inherited Disease N Breast Problem N Difficulty Swallowing N Anesthesia Complications N History of STI N Anxiety Disorder N Meniere's disease N Autoimmune disease N Muscle, Joint, or Bone Problems N Vision or Eye Problems N Arthritis N Infertility N Polyps N Mental Disorder N Congenital Anomalies N Acid Reflux (GERD) N Cancer N Stroke N Neurologic/Epilepsy N Endometriosis N Bladder or Kidney Problems N High Cholesterol N Liver Disease N Organ Transplant N Psychiatric/Mental Health Condition N Fibromyalgia N Headaches N Schizophrenia N Dialysis N Kidney Disease N Allergies/Hayfever N Heart [...] Recorded Time MMR 1 completed Not Available [facility] 03/03/2022 00:01:09 IPV 4 completed Not Available [facility] 03/03/2022 00:01:09 IPV 1 completed Not Available [facility] 03/03/2022 00:01:10 Tdap 0 completed Not Available [facility] 03/03/2022 00:01:10 pneumococcal conjugate PCV 7 1 completed Not Available [facility] 03/03/2022 00:01:10 varicella 1 completed Not Available [facility] 03/03/2022 00:01:10 HPV, quadrivalent 7 completed Lian laboy [facility] [employer], [facility]. 02/13/2025 16:05:38 Hib-Hep B 1 completed Not Available [facility] 03/03/2022 00:01:10 MMR 4 completed Not Available [facility] 03/03/2022 00:01:10 HPV9 8 completed [facility] 02/13/2025 16:05:38 DTaP, unspecified formulation 4 completed Lian Lorenzana null, [place] [employer] 02/13/2025 16:05:38 DTaP, unspecified formulation 1 completed Lian laboy, [place] [employer] 02/13/2025 16:05:38 Past Encounters Encounter ID Performer Location Encounter Start Date Encounter Closed Date Diagnosis/Indication Diagnosis SNOMED-CT Code Diagnosis ICD10 Code Diagnosis IMO Codes Diagnosis Note [id number] ROCIO Yanez [facility] [address] [place] [address] [id number] 04/08/2025 11:15:59 04/08/2025 11:59:54 Fatigue 83666430 R53.83 [id number] HIV screening [id number] Z11.4 324841 Viral scre ening status [id number] Z11.59 849125 Palpitations 03090815 R0 0.2 [id number] MIRNA AMBRIZ NP [facility] [address] [place] [address] [id number] 04/22/2025 12:10:51 04/22/2025 13:45:00 Dysuria [id number] R30.0 55126 Encourage increase in fluids. OTC urinary products such as AZO can help with symptoms.T ylenol/ibu profen per package instructio ns for pain. Health Concerns Section Related Observation LastModified by Organization Detai ls LastModified Time None Recorded Concern Status LastModified by Organization Details LastModified Time None Recorded Payers Encounter Date Sequence Insurance Name Policy Number Policy Martinez Covered Member ID Martinez Member ID Guarantor Name 04/22/2025 1 ECTOR-DEJON: [employer] [place] [id number] Derrell [id number] Derrell Notes Date Note Type Note Provider Name and Address Organization Details Recorded Time 04/22/2025 text/html Presents today with 2 day history of burning with urination as well as urgency. Has frequent UTI. Would consider a referral to urology. No visible blood or change in appearance of urine. denies fever. MIRNA AMBRIZ NP [address] [place] [address], [phone], [facility] [employer] 04/22/2025 13:18:41 OBGyn Episode No OBEpisode recorded.
[2025-05-17 22:18] LABS: BVAB2 Low - 0 Score (.); Candida albicans NAA Negative (Negative); Candida glabrata Negative (Negative); HSV 1 NAA Negative (Negative); HSV 2 NAA Negative (Negative)
== END 2025-05-13 23:59 | disposition home or self-care (01) ==
LOC: LAB.DROPOF 14:55
PROVIDERS: PCP Nurse Practitioner Family; Visit Provider Urology
DX: N39.41 Urge incontinence (principal); N89.8 Other specified noninflammatory disorders of vagina
CPT/HCPCS: 81001; 87086; 87491; 87529; 87591; 87661; 87798; 87801

== ENCOUNTER 2025-06-14 07:07 | Day surgery (SDC) | payer BC, SELFPAY ==
[2025-06-12 15:28] VITALS: BMI 28.3
[2025-06-14 07:17] VITALS: BP 155/76; PULSE 82; RESP 16; TEMP 36.4; O2SAT 99
--- NOTE | 2025-06-14 08:11 | P.PCN_ITS ---
[facility] Procedure Note Date: 06/14/25 Time: 08:11 Procedure Note:: Chart review: The patient has been troubled with bladder control issues since childhood. She has urgency and frequency. She has also been found to have bacterial vaginosis that I sent treatment. For the overactive bladder I ordered Ditropan but the patient says she never picked that up. She has been taking Macrobid 1 8 as for UTI prevention and that course will complete itself next week. The patient does not give a history of urinary tract infections associated with sexual intercourse. Pre-op diagnosis: UTI/bacterial vaginosis/overactive bladder Postop diagnosis: UTI/bacterial vaginosis/overactive bladder\moderate urethritis Operative note: The patient was brought to the cystoscopy suite she is prepped and draped in the usual fashion. She underwent catheterization for a urinalysis and urine culture and sensitivity. She underwent flexible cystoscopy. The urethra shows moderate urethritis. The bladder itself is [place] pink in color throughout without evidence of bladder stone tumor hemorrhage or infection. The ureteral orifice ease are normal bilaterally. She tolerated the procedure well. Although she is perimenopausal I am going to consider Estrace vaginal cream to try to help that urethritis as well as the oxybutynin.
[2025-06-14] MEDS: 0.9 % SODIUM CHLORIDE 500 ML 25 ML IV (08:21)
[2025-06-14 08:25] VITALS: BP 119/67; PULSE 74; RESP 16; TEMP 36.7; O2SAT 99
[2025-06-14 13:37] LABS: Microscopic,Cath URINE MICROSCOPIC (MICROSCOPIC)
[2025-06-14 15:20] LABS: Appearance,Urine/Cath CLEAR (Clear); Bilirubin,Cath Negative (Negative); Blood, Urine/Cath Negative (Negative); Color,Urine/Cath YELLOW (Yellow); Glucose,Urine/Cath (UA) Negative (Negative); Ketones,Urine/Cath Negative (Negative); Leukocyte Esterase,Cath Negative (Negative); Nitrate,Cath Negative (Negative); PH,Urine/Cath 6.5 (5.0-8.5); Protein,Urine/Cath Negative (Negative); Specific Gravity, Urine/Cath 1.010 (1.005-1.030); Urobilinogen,Cath 0.2 EU/dl (0.2)
[2025-06-14 15:53] LABS: Squamous Epithelial Ur./Cath Occasional #/hpf (0-5); WBC,Urine/Cath Occasional #/hpf (0-3)
== END 2025-06-14 08:45 | disposition home or self-care (01) ==
PROVIDERS: PCP Physician Assistant; Visit Provider Urology
PROC: 0TJB8ZZ Inspection of Bladder, Via Natural or Artificial Opening Endoscopic (ICD-10-PCS; CPT 52000; principal; 2025-06-14 08:15)
DX: N32.81 Overactive bladder (principal); N76.0 Acute vaginitis; B96.89 Other specified bacterial agents as the cause of diseases classified elsewhere; N34.2 Other urethritis; N39.41 Urge incontinence; Z87.440 Personal history of urinary (tract) infections; F41.9 Anxiety disorder, unspecified; Z88.2 Allergy status to sulfonamides; Z88.8 Allergy status to other drugs, medicaments and biological substances; Z90.49 Acquired absence of other specified parts of digestive tract
CPT/HCPCS: 52000; 81001; J7040